=== PATIENT | male | born 1970 | race Caucasian/White ===

== ENCOUNTER 2021-03-06 15:31 | Emergency (ER) | payer OTHER, SELFPAY ==
[2021-03-06 15:32] VITALS: BP 173/89; PULSE 117; RESP 18; TEMP 36; O2SAT 100; BMI 48.4
--- NOTE | 2021-03-06 15:48 | EDS_ITS ---
HPI HPI - URI History of Present Illness Chief Complaint: Cough Detail of Chief Complaint: Cough and congestion Informant: patient Narrative Narrative: Patient presents to the emergency department complaint of cough and congestion that started 2 days ago. Patient has a coworker that lives with in- laws that apparently have Covid. Coworkers still been coming to work. Patient has been vaccinated and his second dose was in July of this year. Patient states the cough is nonproductive. He denies loss of taste or smell. He denies shortness of breath. He denies chest pain. Patient did not receive an influenza vaccine. Prior similar symptoms: No ROS ROS ED Constitutional Constitutional ED: Reports systems reviewed and no addt'l complaints, except as documented; Denies body ache(s), change in weight or chills Eyes Eyes: Denies acute decrease in peripheral vision, change in vision, double vision or loss of vision ENT ENT ED: Reports none and other Details: Nasal congestion ; Denies ear pain, lip swelling, loss taste/smell, neck pain, otalgia or sore throat Cardiovascular Cardiovascular: Reports none; Denies abdominal pain, chest pain with activity, leg edema, lightheadedness, palpitations, rapid heart rate or syncope Respiratory/Chest Respiratory/Chest: Reports none and cough; Denies change in mental status, dry cough, dyspnea, hemoptysis, shortness of breath at rest or shortness of breath with exertion Gastrointestinal Gastrointestinal: Reports none; Denies abdominal pain, change in stool character, diarrhea, hematemesis, hematochezia, melena, rectal bleeding or vomiting Genitourinary Genitourinary ED: Reports none; Denies abdominal discomfort, anuria, dysuria, genital pain or polyuria Musculoskeletal Musculoskeletal: Reports none; Denies arthralgias, back pain, difficulty walking, extremity pain, muscle weakness or myalgias Integumentary Reports none; Denies abscess or rash Neurologic Neurologic: Reports none; Denies abnormal gait, confusion, focal weakness, frequent falls, headache(s), loss of vision, numbness, paresthesias, radicular pain, vertigo or weakness Psychiatric Psychiatric: Reports systems reviewed and no addt'l complaints, except as documented and none; Denies behavioral changes, confusion, difficulty concentrating, hallucinations, suicidal ideation, tactile hallucinations or visual hallucinations Endocrine Endocrinology: Denies none, cold intolerance, excessive sweating, fatigue or heat intolerance Hematologic/Lymphatic Hematologic/Lymphatic: Reports none; Denies anemia, easy bleeding or easy bruising Allergic/Immunologic Allergic/Immunologic ED: Denies as per HPI, none, lip swelling, mouth swelling, throat swelling, tongue swelling or hives PFSH [facility] Medical History (Updated 03/06/21 @ 16:[address] Fatmata Perez, DO) Congestive heart failure Essential hypertension Hypoxia Morbid obesity Nonischemic cardiomyopathy Obstructive sleep apnea Pulmonary hypertension Right arm fracture Sinus tachycardia Home Medications aspirin 81 mg PO DAILY@0800 #90 tab.chew 10/10/13 [Rx Last Taken Unknown] ascorbic acid (vitamin C) 1,000 mg tablet 1 g PO DAILY tab 06/29/19 [History Last Taken Unknown] diltiazem HCl 120 mg capsule,extended release 24 hr 120 mg PO BID #180 cap 08/22/20 [Rx Last Taken Unknown] furosemide 40 mg tablet 40 mg PO BID #180 tab 08/29/20 [Rx Last Taken Unknown] lisinopril 10 mg tablet 10 mg PO BID #180 tab 08/29/20 [Rx Last Taken Unknown] metoprolol tartrate 100 mg tablet 150 mg PO BID #270 tab 08/29/20 [Rx Last Taken Unknown] Allergy/AdvReac Type Severity Reaction Status Date / Time No Known Allergies Allergy Verified 03/06/21 15:31 Family History Father CAD (coronary artery disease) COPD (chronic obstructive pulmonary disease) Mother Cancer Heart disease Surgical History History of left heart catheterization (LHC) (~10/09/13) History of open reduction and internal fixation (ORIF) procedure History of umbilical hernia repair Social History Smoking Status: Former smoker how long ago did patient quit smokin years ago alcohol intake: current alcohol intake frequency: holidays/special occasions only substance use type: does not use caffeine: No EXAM Physical Exam Const Vital Signs: 03/06/21 15:32 03/06/21 15:55 Temperature 96.8 F L Temperature Source Temporal Pulse Rate 117 H Respiratory Rate 18 Respiratory Effort Normal Non-Labored Respiratory Depth Normal Respiratory Pattern Normal Blood Pressure 173/89 H Blood Pressure Mean 117 Pulse Ox 100 Oxygen Delivery Method Room Air Room Air Positive well nourished and well developed General Appearance ED: well developed and NAD HEENT Reports TM's clear and moist mucous membranes normocephalic and atraumatic; Negative for trauma or tenderness Tympanic Membrane ED: Yes TM's clear Eyes PERRL and EOMs intact bilaterally General Eye ED: Negative for pale conjunctiva or scleral icterus Neck no lymphadenopathy, supple and no JVD General: Negative for tenderness Chest Wall inspection of chest normal and palpation of chest normal Chest: Negative for tenderness Resp normal respiratory effort and clear to auscultation bilaterally Effort and Inspection: Negative for respiratory distress or pain with movement Auscultation: Negative for rhonchi, wheezes or diminished lung sounds Cardio regular rate, regular rhythm, S1 normal heart sound, S2 normal heart sound and no murmurs Rate: tachycardic Peripheral Pulses: pulses 2+ throughout GI normal to inspection, nondistended, normoactive bowel sounds, soft to palpation, non-tender, non-distended and no masses Back/Spine no CVA tenderness and no thoracic nor lumbar tenderness Extremity normal to inspection General Extremety ED: Negative for edema General Extremity: Negative for edema Neuro oriented x3, CN's II-XII intact bilaterally, no sensory deficits noted and gait normal Sensorium / Orientation: awake, alert, oriented to person, oriented to place and oriented to time Motor Exam: strength 5/5 throughout and strength abnormal Psych mental status grossly normal Skin no rashes or lesions noted and no wounds MDM MDM MDM Narrative Medical decision making narrative: Patient had a rapid Covid test and rapid influenza and both were negative. At this point I suspect likely a viral URI. Patient advised to follow-up with his primary care physician 5 to 7 days. He is to return if increasing shortness of breath or condition should worsen anyway. Lab Data Attestation: I reviewed the patient's lab results. Discharge Plan Triage Chief Complaint: Cough ED Provider: Fatmata Perez Dx/Rx/DC Orders Clinical Impression: Upper respiratory infection, viral Instructions: ED URI, Viral, No Abx (Adult) Prescriptions: No Action ascorbic acid (vitamin C) 1,000 mg tablet 1 g PO DAILY RF: 0 lisinopril 10 mg tablet 10 mg PO BID Qty: 180 RF: 3 furosemide 40 mg tablet 40 mg PO BID Qty: 180 RF: 3 metoprolol tartrate 100 mg tablet 150 mg PO BID Qty: 270 RF: 3 aspirin 81 MG tablet,chewable 81 mg PO DAILY@0800 Qty: 90 RF: 4 diltiazem HCl [Cardizem CD] 120 mg capsule,extended release 24hr 120 mg PO BID Qty: 180 RF: 3 Primary Care Provider: Awais Bonilla Referrals: Donny Olmos MD [STAFF PHYSICIAN] - 5-7 Days Awais Bonilla MD [Primary Care Provider] - Disposition Disposition: Home, Self Care
[2021-03-06 15:55] VITALS: O2SAT 96
== END 2021-03-06 17:00 | disposition home or self-care (01) ==
PROVIDERS: Emergency Provider Emergency Medicine; PCP Family Medicine
DX: J06.9 Acute upper respiratory infection, unspecified (principal); I11.0 Hypertensive heart disease with heart failure; I50.9 Heart failure, unspecified; E66.01 Morbid (severe) obesity due to excess calories; Z68.42 Body mass index [BMI] 45.0-49.9, adult; Z20.822 Contact with and (suspected) exposure to COVID-19; Z79.82 Long term (current) use of aspirin; Z79.899 Other long term (current) drug therapy; Z87.891 Personal history of nicotine dependence
CPT/HCPCS: 87426; 87804; 99282

== ENCOUNTER 2023-01-20 10:40 | Emergency (ER) | payer OTHER, SELFPAY ==
[2023-01-20 10:41] VITALS: BP 141/82; PULSE 122; RESP 18; TEMP 36.6; O2SAT 99; BMI 44.5
--- NOTE | 2023-01-20 10:48 | EX.ED.DYSGE1 ---
HPI History of Present Illness Chief Complaint: Cough Informant: patient Onset/Context/Timing Onset: Days (3) Context: Gradual Onset Timing: Continuous Quality: Fatigue, dizzy Location: Generalized Worsened by: Nothing Relieved by: Nothing Narrative Narrative: Patient presents with cough and congestion that began 2 days ago. Patient states it has been getting progressively worse. Patient states he feels fatigued. Patient also admits to some dizziness where he feels off balance at times. Patient states nothing makes his symptoms better nothing makes them worse. Patient states he has been having some nausea and vomiting. Patient also admits to a frontal headache. Patient admits to some subjective fevers and chills but does not have a thermometer at home. [facility] Medical History Congestive heart failure Essential hypertension Hypoxia Morbid obesity Neuropathy Nonischemic cardiomyopathy Obstructive sleep apnea Pulmonary hypertension Right arm fracture Sinus tachycardia Varicose vein of leg Home Medications aspirin 81 mg chewable tablet 81 mg PO DAILY@0800 ##90 10/10/13 [Rx Last Taken Unknown] ascorbic acid (vitamin C) 1,000 mg tablet 1 g PO DAILY 06/29/19 [History Last Taken Unknown] diltiazem HCl 120 mg capsule,extended release 24 hr (Cardizem CD) 120 mg PO BID #180 caps 10/15/22 [Rx Last Taken Unknown] furosemide 40 mg tablet 40 mg PO BID #180 tabs 10/15/22 [Rx Last Taken Unknown] lisinopril 10 mg tablet 10 mg PO BID #180 tabs 10/15/22 [Rx Last Taken Unknown] metoprolol tartrate 100 mg tablet 150 mg (1.5 x 100 mg) PO BID #270 tabs 10/15/22 [Rx Last Taken Unknown] Allergy/AdvReac Type Severity Reaction Status Date / Time No Known Allergies Allergy Verified 01/20/23 10:41 Family History Father CAD (coronary artery disease) COPD (chronic obstructive pulmonary disease) Mother Cancer Heart disease Surgical History History of left heart catheterization (LHC) (~10/09/13) History of open reduction and internal fixation (ORIF) procedure History of umbilical hernia repair Social History Smoking Status: Former smoker how long ago did patient quit smokin years ago alcohol intake: current alcohol intake frequency: holidays/special occasions only substance use type: does not use caffeine: No ROS ROS ED Constitutional Constitutional ED: Reports chills, fever(s) and subjective Eyes Eyes: Denies blurry vision or change in vision ENT ENT ED: Denies rhinorrhea or sore throat Cardiovascular Cardiovascular: Denies chest pain or palpitations Respiratory/Chest Respiratory/Chest: Reports cough; Denies dyspnea or sputum Gastrointestinal Gastrointestinal: Reports nausea and vomiting Genitourinary Genitourinary ED: Denies dysuria or hematuria Musculoskeletal Musculoskeletal: Denies back pain or neck pain Integumentary Denies abscess or rash Neurologic Neurologic: Reports headache(s); Denies weakness Allergic/Immunologic Allergic/Immunologic ED: Denies mouth swelling or urticaria EXAM Physical Exam Const Vital Signs: 01/20/23 10:41 Temperature 97.9 F Temperature Source Temporal Pulse Rate 122 H Respiratory Rate 18 Blood Pressure 141/82 H Blood Pressure Mean 101 Pulse Ox 99 Oxygen Delivery Method Room Air Positive well nourished, well developed and obese General Appearance ED: well developed and NAD Nutritional Appearance: obese HEENT Reports TM's clear and moist mucous membranes Tympanic Membrane ED: Yes TM's clear Eyes PERRL and EOMs intact bilaterally Neck supple and no JVD Resp normal respiratory effort and clear to auscultation bilaterally Cardio regular rate and regular rhythm GI non-tender and non-distended Palpation: soft Extremity normal to inspection General Extremety ED: Negative for edema or tenderness General Extremity: Negative for edema Neuro oriented x3, CN's II-XII intact bilaterally and no sensory deficits noted Sensorium / Orientation: alert Motor Exam: strength 5/5 throughout Psych mental status grossly normal MDM MDM MDM Narrative Medical decision making narrative: Differential diagnosis includes viral upper respiratory infection, COVID-19, influenza, RSV, pneumonia, and dehydration. Chest x-ray will be obtained to assess for pneumonia. COVID-19 rapid antigen will be obtained to assess for COVID-19 infection. Influenza A and influenza B antigens will be obtained to assess for influenza infection. RSV antigen will be obtained to assess for RSV infection. CBC will be obtained to assess for leukocytosis and anemia. Basic metabolic profile will be obtained to assess for electrolyte abnormality and renal function. Lab Data Attestation: I reviewed the patient's lab results. Lab results narrative: COVID-19 rapid antigen was reviewed and was negative. Influenza A and influenza B antigens were reviewed and were negative. RSV rapid antigen was reviewed and was negative. CBC was reviewed and shows a mild leukocytosis of 12.1. Basic metabolic profile was reviewed. Glucose was elevated at 417. Sodium was slightly low at 130 and chloride was 95. The remainder was within normal limits. Anion gap was normal. CO2 was normal. Labs: Laboratory Results - last 24 hr 01/20/23 11:17 WBC 12.1 H RBC 5.44 Hgb 16.2 Hct 48.2 MCV 88.6 MCH 29.8 MCHC 33.6 RDW Std Deviation 40.8 RDW Coeff of Mechelle 12.5 Plt Count 253 MPV 8.8 Immature Gran % (Auto) 0.800 Neut % (Auto) 75.1 H Lymph % (Auto) 11.0 L Williamson % (Auto) 12.5 H Eos % (Auto) 0.1 Baso % (Auto) 0.5 Absolute Neuts (auto) 9.1 H Absolute Lymphs (auto) 1.32 Nucleated RBC % 0 Differential Comment SCANNED Diff Path Review May foll Sodium 130 L Potassium 3.6 Chloride 95 L Carbon Dioxide 25.0 Anion Gap 10 BUN 12 Creatinine 1.06 Estim Creat Clear Calc 80.66 Est GFR (MDRD) Af Amer 95 Est GFR (MDRD) Non-Af 79 BUN/Creatinine Ratio 11.3 Glucose 417 H Calcium 9.3 Treatment and Re-Evaluation :: Patient was given IV fluids and Zofran. Patient is feeling better on reevaluation. Patient was advised of his findings. Patient was instructed to take Tylenol or ibuprofen as needed for any fevers or aches. Patient was instructed to drink plenty of fluids. Patient was instructed to follow-up with his primary care physician in 5 to 7 days. Patient understood and was agreeable with the plan. All questions were answered. Discharge Plan Triage Chief Complaint: Cough Other Complaint: Dizziness Headache ED Provider: Mario Hogue Dx/Rx/DC Orders Clinical Impression: Viral upper respiratory infection Instructions: ED URI, Viral, No Abx (Adult) Prescriptions: No Action ascorbic acid (vitamin C) 1,000 mg tablet 1 g PO DAILY aspirin 81 MG tablet,chewable 81 mg PO DAILY@0800 Qty: 90 4RF Patient Comments: [facility] diltiazem HCl [Cardizem CD] 120 mg capsule,extended release 24hr 120 mg PO BID Qty: 180 3RF furosemide 40 mg tablet 40 mg PO BID Qty: 180 3RF Patient Comments: WATER PILL lisinopril 10 mg tablet 10 mg PO BID Qty: 180 3RF metoprolol tartrate 100 mg tablet 150 mg PO BID Qty: 270 3RF Stand Alone Forms: ED Work / School Excuse Primary Care Provider: Awais Bonilla Referrals: Awais Bonilla MD [Primary Care Provider] - 5-7 Days Disposition Disposition: Home, Self Care
[2023-01-20] MEDS: Ondansetron 4 MG/2 ML Vial IV (11:26)
[2023-01-20] MEDS: 0.9% Normal Saline (1000mL) 1,000 ML 1000 ML IV (11:26)
[2023-01-20 11:27] LABS: Absolute Lymphocyte Count 1.32 X10^3/uL (0.83-4.51); Absolute Neutrophil Count 9.1 X10^3/uL (2.0-7.7); Basophil# 0.06 X10^3/uL; Basophil% 0.5 % (0-1); Eosinophil# 0.01 X10^3/uL; Eosinophils% 0.1 % (0-5); Hematocrit 48.2 % (40-54); Hemoglobin 16.2 g/dL (13.0-16.5); Lymphocyte # 1.32 X10^3/ul (0.83-4.51); Mean Corp Hgb Conc 33.6 g/dL (32-36); Mean Corpuscular Hgb 29.8 pg (27.0-32.0); Mean Corpuscular Volume 88.6 fL (80-94); Mean Platelet Vol. 8.8 fl (6.2-12.0); Monocyte# 1.51 X10^3/uL; Monocyte% 12.5 % (0-10); NRBC Flagged by Analyzer 0 % (0-5); Neutrophil # 9.05 X10^3/uL (2.7-7.7); Neutrophil % 75.1 % (47-70); POSITIVE DIFFERENTIAL YES; Platelet Count 253 K/mm3 (150-450); RBC Distribution Width CV 12.5 % (11.6-14.6); RBC Distribution Width SD 40.8 fl (35.1-43.9); Red Blood Count 5.44 M/mm3 (4.6-6.2); White Blood Count 12.1 K/mm3 (4.4-11.0)
[2023-01-20 11:28] LABS: Differential Indicated SCAN CRITERIA MET
[2023-01-20 11:38] LABS: Anion Gap 10 (5-15); BUN 12 mg/dL (7-18); BUN/Creat Ratio 11.3 RATIO (10-20); Calcium,Total 9.3 mg/dL (8.5-10.1); Chloride 95 mmol/L (98-107); Creatinine, Serum 1.06 mg/dL (0.70-1.30); EST Glomerular Filtration Rate 79 mL/min (>60); Est Glom Filt Rate - Afr Amer 95 mL/min (>60); Estimated Creatinine Clearance 80.66 ml/min; Glucose 417 mg/dL (74-106); Potassium 3.6 mmol/L (3.5-5.1); Sodium Level 130 mmol/L (136-145)
[2023-01-20 11:52] LABS: Differential Comment SCANNED
[2023-01-21 09:59] LABS: Pathologist Review Reviewed
== END 2023-01-20 13:40 | disposition home or self-care (01) ==
PROVIDERS: Emergency Provider Emergency Medicine; PCP Family Medicine; Visit Provider Emergency Medicine
DX: J06.9 Acute upper respiratory infection, unspecified (principal); I11.0 Hypertensive heart disease with heart failure; I50.9 Heart failure, unspecified; Z79.82 Long term (current) use of aspirin; Z79.899 Other long term (current) drug therapy; Z87.891 Personal history of nicotine dependence
CPT/HCPCS: 80048; 85025; 87428; 87807; 96361; 96374; 99283; J7030; A4216; J2405

== ENCOUNTER 2023-01-31 06:29 | Inpatient (IN) | payer OTHER, SELFPAY ==
[2023-01-31] VITALS (8 sets, daily range): BP systolic 120–136; BP diastolic 65–83; PULSE 64–106; RESP 14–17; TEMP 36.1–36.9; O2SAT 94–99; BMI 44.0
--- NOTE | 2023-01-31 07:35 | RAD_ITS ---
STUDY: X-RAY - LEFT FOOT CLINICAL: Male, 52 years old. wound TECHNIQUE: 3 view(s) of the foot. COMPARISON: None. FINDINGS: Normal talus and tarsal bones. Calcaneal spurs Normal visualized subtalar, talonavicular, calcaneocuboid, tarsal and tarsometatarsal articulations. Normal metatarsi. Normal metatarsophalangeal joint of the great toe. Normal tibial and fibular sesamoid bones. Normal interphalangeal joint of the great toe. Normal phalanges of the great toe. Normal second through fifth metatarsophalangeal joints. Normal interphalangeal joints and phalanges of the lesser toes. There is diffuse soft tissue swelling and subcutaneous emphysema about the phalanges of the great toe and along the distal first metatarsal there is no clearly demonstrated fracture. There may be a fracture in the distal phalanx of the great toe but this is not well visualized due to the subcutaneous emphysema. There is a corticated calcific fragment which appears to be an old ununited avulsion fracture of the distal medial corner of the proximal phalanx of the great toe. RAD/Foot min 3 Views IMPRESSION: Diffuse soft tissue swelling and subcutaneous emphysema particularly over the distal phalanx of the great toe. No demonstrated acute fracture though a subtle fracture could be obscured by the subcutaneous emphysema and soft tissue swelling. Calcaneal spurs Electronically Signed: Minor Frazier MD at 8:21 EST ,
--- NOTE | 2023-01-31 07:59 | EX.ED.DYSGE1 ---
HPI History of Present Illness Chief Complaint: Wound Narrative Narrative: 52-year-old male presenting with concern for infection of left foot. He states been about a week and a half. Patient denies any injury that he knows of. He notes that the great toe area was draining. There is some erythema that spreads over the dorsum of the foot. He states it hurts posteriorly in his lower leg when he stands but when he walks this goes away. Denies any fevers, chills, systemic signs or symptoms. States he is not diabetic that he knows of. [facility] Medical History Congestive heart failure Essential hypertension Hypoxia Morbid obesity Neuropathy Nonischemic cardiomyopathy Obstructive sleep apnea Pulmonary hypertension Right arm fracture Sinus tachycardia Varicose vein of leg Home Medications aspirin 81 mg chewable tablet 81 mg PO DAILY@0800 ##90 10/10/13 [Rx Last Taken Unknown] diltiazem HCl 120 mg capsule,extended release 24 hr (Cardizem CD) 120 mg PO BID #180 caps 10/15/22 [Rx Last Taken Unknown] furosemide 40 mg tablet 40 mg PO BID #180 tabs 10/15/22 [Rx Last Taken Unknown] lisinopril 10 mg tablet 10 mg PO BID #180 tabs 10/15/22 [Rx Last Taken Unknown] metoprolol tartrate 100 mg tablet 150 mg (1.5 x 100 mg) PO BID #270 tabs 10/15/22 [Rx Last Taken Unknown] Allergy/AdvReac Type Severity Reaction Status Date / Time No Known Allergies Allergy Verified 01/31/23 06:37 Family History Father CAD (coronary artery disease) COPD (chronic obstructive pulmonary disease) Mother Cancer Heart disease Surgical History History of left heart catheterization (LHC) (~10/09/13) History of open reduction and internal fixation (ORIF) procedure History of umbilical hernia repair Social History Smoking Status: Former smoker how long ago did patient quit smokin years ago alcohol intake: current alcohol intake frequency: holidays/special occasions only substance use type: does not use caffeine: No ROS ROS ED Constitutional Constitutional ED: Denies chills, fever(s) or sweats Eyes Eyes: Denies blurry vision or change in vision ENT ENT ED: Denies ear pain or sore throat Cardiovascular Cardiovascular: Denies chest pain, palpitations or racing heartbeat Respiratory/Chest Respiratory/Chest: Denies cough, dyspnea or sputum Gastrointestinal Gastrointestinal: Denies abdominal pain, constipation, diarrhea, nausea or vomiting Genitourinary Genitourinary ED: Denies dysuria, hematuria or urinary frequency Musculoskeletal Musculoskeletal: Denies arthralgias, myalgias or neck pain Integumentary Reports abscess and rash; Denies Abrasions Neurologic Neurologic: Denies headache(s), paresthesias or weakness Psychiatric Psychiatric: Denies anxiety, depression, suicidal ideation or suicidal thoughts Endocrine Endocrinology: Denies polydipsia or polyuria EXAM Physical Exam Const Vital Signs: 01/31/23 06:31 Temperature 98.4 F Temperature Source Temporal Pulse Rate 101 H Respiratory Rate 15 Blood Pressure 121/65 H Blood Pressure Mean 83 Pulse Ox 99 Oxygen Delivery Method Room Air Positive well nourished and obese General Appearance ED: NAD Nutritional Appearance: obese HEENT Reports moist mucous membranes Eyes PERRL and EOMs intact bilaterally Chest Wall inspection of chest normal Resp normal respiratory effort and clear to auscultation bilaterally Cardio regular rhythm GI normal to inspection, nondistended, normoactive bowel sounds Extremity Extremity Narrative: Erythema, edema, warmth, skin sloughing at the left distal great toe and to the midfoot. No crepitance is appreciated however there is drainage from the great toe. Nontender to palpation. There appears to be some areas of necrosis but he is a nail of the great toe and the dorsum of the foot proximal to the toes. There is also some necrotic changes to the volar surface of the great toe. Neuro oriented x3 and CN's II-XII intact bilaterally Sensorium / Orientation: alert Psych mental status grossly normal Skin Skin Narrative: As described above MDM MDM MDM Narrative Medical decision making narrative: 52-year-old male presenting with foot infection. There appears to be areas of necrosis and cellulitis. The patient initially is tachycardic however his other vital signs are normal. Not complaining of pain. He has no systemic signs or symptoms. Initially CBC, BMP were ordered to assess white blood cell count, hemoglobin, platelets, renal function, electrolytes. CRP and ESR were also obtained. ESR 31 and slightly elevated. CRP 119. White blood cell came back at 18.5 with normal hemoglobin of 14.8, platelets 449. Orders were added to complete a sepsis work-up including PT/INR, lactic acid, blood cultures, urinalysis, urine culture. Urinalysis is still pending however lactic acid is 2.7. BMP shows 43-year-old sodium 129 with an elevated glucose at 405 which is likely pseudohyponatremia with new onset diabetes as the patient does not have a history of diabetes. This is likely what it looks infected. Patient covered with vancomycin and Zosyn. X-ray was obtained of the left foot which on my interpretation shows concern for osteomyelitis and subcutaneous air. I discussed the case with Dr. Moore who recommended that since the patient appears to be septic from this he been admitted to medicine he also has a lot of comorbidities. Patient had a wound culture prior to antibiotics starting. Discussed with hospitalist for admission. Impression: 1. Cellulitis left foot 2. Osteomyelitis left foot 3. New onset diabetes 4. Sepsis Lab Data Labs: Laboratory Results - last 24 hr 01/31/23 07:24 WBC 18.5 H RBC 5.12 Hgb 14.8 Hct 47.4 MCV 92.6 MCH 28.9 MCHC 31.2 L RDW Std Deviation 42.0 RDW Coeff of Mechelle 12.2 Plt Count 449 MPV 9.4 ESR 31 H PT 14.6 INR 1.1 Sodium 129 L Potassium 3.8 Chloride 95 L Carbon Dioxide 27.0 Anion Gap 7 BUN 11 Creatinine 0.92 Estim Creat Clear Calc 92.93 Est GFR (MDRD) Af Amer 112 Est GFR (MDRD) Non-Af 93 BUN/Creatinine Ratio 12.0 Glucose 405 H Lactic Acid 2.7 H* Calcium 9.5 C-React Prot Ext Range 119.00 H Radiography Diagnostic Testing: Clinical Impression(s) from Imaging Studies Foot X-Ray 01/31/23 07:35 IMPRESSION: Diffuse soft tissue swelling and subcutaneous emphysema particularly over the distal phalanx of the great toe. No demonstrated acute fracture though a subtle fracture could be obscured by the subcutaneous emphysema and soft tissue swelling. Calcaneal spurs Electronically Signed: Minor Frazier MD at 8:21 EST , Discharge Plan Disposition Disposition: Acute Care Hospital [facility] Discharge Date/Time: 01/31/23 09:56
[2023-01-31 08:22] LABS: Erythrocyte Sedimentation Rate 31 mm/hr (0-20)
[2023-01-31 08:24] LABS: Hematocrit 47.4 % (40-54); Hemoglobin 14.8 g/dL (13.0-16.5); Mean Corp Hgb Conc 31.2 g/dL (32-36); Mean Corpuscular Hgb 28.9 pg (27.0-32.0); Mean Corpuscular Volume 92.6 fL (80-94); Mean Platelet Vol. 9.4 fl (6.2-12.0); Platelet Count 449 K/mm3 (150-450); RBC Distribution Width CV 12.2 % (11.6-14.6); Red Blood Count 5.12 M/mm3 (4.6-6.2); White Blood Count 18.5 K/mm3 (4.4-11.0)
[2023-01-31] MEDS: Piperacil/Tazobactam 3.375 GM in 0.9% Normal Saline (50mL MB+) 50 ML IV ×3 (09:15→22:38)
--- NOTE | 2023-01-31 09:28 | ART_ITS ---
Reason For Study: LTFoot Infection Procedure A bilateral lower extremity continuous wave Doppler with analog waveform analysis and ankle brachial indexes. Left Segmental Pressures Left brachial= 113mmHg. Left posterior tibial artery = 136mmHg. Left dorsalis pedis artery = 131mmHg. The left posterior tibial artery waveforms are triphasic. The left dorsalis pedis waveforms are triphasic. Right Segmental Pressures Right posterior tibial artery = 143mmHg. Right dorsalis pedis artery = 144mmHg. The right posterior tibial artery waveforms are triphasic. The right dorsalis pedis waveforms are triphasic. Indices The right ankle brachial index by the posterior tibial artery is 1.27. The right ankle brachial index by the dorsalis pedis is 1.27. The left ankle brachial index by the posterior tibial artery is 1.20. The left ankle brachial index by the dorsalis pedis is 1.16. VL/Ankle Brachial Index Interpretation Summary Triphasic Doppler waveforms are noted at ankle level bilaterally. Pulse-volume recordings appear satisfactory at ankle level bilaterally. Resting ankle-brachial indices are nor mal bilaterally. There is no evidence of significant arterial occlusive disease in the lower ext remities bilaterally. Ordering Physician: Mario Mathews Referring Physician: N/A Performed By: Frankie Tan RVT
[2023-01-31 09:29] LABS: International Normalized Ratio 1.1; Prothrombin Time (Protime)PT. 14.6 SECONDS (11.7-14.9)
--- NOTE | 2023-01-31 09:29 | PCM.HP.STD ---
HPI - General General Date of Admission: 01/31/23 Date of Service: 01/31/23 Chief Complaint: left foot infection. HPI Narrative CAMILO MULLER, is a 52 M who presents because of a left foot infection. About a week and a half ago, patient noted a blister on his left toe. Was tending to it on his own with treating with water and salt water at times. But the infection got worse. Patient has neuropathy of his feet so he does not have any pain. The infection progressively got worse where he has eschar was on the dorsum of his foot. He presented to the emergency room and had an x-ray that showed subcutaneous emphysema over the distal phalanx of the great toe. Patient received vancomycin and PIP Tazo in the emergency room. Podiatry contacted. Patient mid to the floor. Patient denies any history of any infection of his foot before but does note that he has had a history of neuropathy, according to him, due to heart failure and swelling. Should be noted that the patient's glucose when he was here on the 26 was 417. Suspect patient does have component of diabetic neuropathy. Patient has no prior known history of diabetes. Patient states that his left foot look like his right foot before the infection started. His right foot has some calluses and some some onychomycosis but otherwise unremarkable. He denies any antecedent trauma to his foot or any injuries that may have precipitated this. [facility] Medical History Congestive heart failure Essential hypertension Hypoxia Morbid obesity Neuropathy Nonischemic cardiomyopathy Obstructive sleep apnea Pulmonary hypertension Right arm fracture Sinus tachycardia Varicose vein of leg Home Medications aspirin 81 mg chewable tablet 81 mg PO DAILY@0800 ##90 10/10/13 [Rx Last Taken Unknown] diltiazem HCl 120 mg capsule,extended release 24 hr (Cardizem CD) 120 mg PO BID #180 caps 10/15/22 [Rx Last Taken Unknown] furosemide 40 mg tablet 40 mg PO BID #180 tabs 10/15/22 [Rx Last Taken Unknown] lisinopril 10 mg tablet 10 mg PO BID #180 tabs 10/15/22 [Rx Last Taken Unknown] metoprolol tartrate 100 mg tablet 150 mg (1.5 x 100 mg) PO BID #270 tabs 10/15/22 [Rx Last Taken Unknown] Allergy/AdvReac Type Severity Reaction Status Date / Time No Known Allergies Allergy Verified 01/31/23 06:37 Family History Father CAD (coronary artery disease) COPD (chronic obstructive pulmonary disease) Mother Cancer Heart disease Surgical History History of left heart catheterization (LHC) (~10/09/13) History of open reduction and internal fixation (ORIF) procedure History of umbilical hernia repair Social History Smoking Status: Former smoker how long ago did patient quit smokin years ago alcohol intake: current alcohol intake frequency: holidays/special occasions only substance use type: does not use caffeine: No ROS ROS Narrative States that he has been pretty active. Does walk about half to 1 block and does have to stop due to being short of breath. This been no change with. He denies any chest pain with activity. No fever or chills. No sore throat or rhinitis. All review of systems were negative except as mentioned above in the history of present illness and the other review of systems. Vital Signs Vital Signs Vital Signs: 01/31/23 06:31 Temperature 36.9 C Temperature Source Temporal Pulse Rate 101 H Respiratory Rate 15 Blood Pressure 121/65 H Blood Pressure Mean 83 Pulse Ox 99 Oxygen Delivery Method Room Air Weight Weight: 131.4 kg Body Mass Index (BMI) 44.0 Physical Exam Const alert and no apparent distress Constitutional Narrative: Ready complexion of his face. Appears older than stated age. General Appearance: cooperative HEENT HEENT Narrative: Ready appearance to the face. Eyes Eyes Narrative: No icterus Resp normal respiratory effort, no retractions, no use of accessory muscles and clear to auscultation bilaterally Cardio regular rate, regular rhythm, S1 normal heart sound and S2 normal heart sound GI normal to inspection, nondistended, normoactive bowel sounds, soft to palpation, non-tender and non-distended Extremity Extremity Narrative: Right foot shows callus over right lateral great toe. Some onychomycosis. Left foot is swollen primarily distally. On the medial side especially. Erythema medially. Patient is missing his right great toe. He has bleeding from the plantar side of his right great toe. Has necrotic eschar is on the dorsum of his right foot. His foot is extremely malodorous. Neuro oriented x3 Sensorium / Orientation: awake and alert Psych affect normal Results Lab / Micro Data Attestation: I reviewed the patient's lab results. 01/31/23 07:24 01/31/23 07:24 Labs: Laboratory Results - last 24 hr 01/31/23 07:24: WBC 18.5 H, RBC 5.12, Hgb 14.8, Hct 47.4, MCV 92.6, MCH 28.9, MCHC 31.2 L, RDW Std Deviation 42.0, RDW Coeff of Mechelle 12.2, Plt Count 449, MPV 9.4, ESR 31 H Radiology Impression Foot X-Ray 01/31/23 07:35 IMPRESSION: Diffuse soft tissue swelling and subcutaneous emphysema particularly over the distal phalanx of the great toe. No demonstrated acute fracture though a subtle fracture could be obscured by the subcutaneous emphysema and soft tissue swelling. Calcaneal spurs Electronically Signed: Minor Frazier MD at 8:21 EST , Assessment & Plan Assessment/Plan (1) Cellulitis of left foot: PLAN: Severe infection Does have subcutaneous air Concerning for osteomyelitis Antibiotics with vancomycin and PIP Tazo Check MRI, check ankle-brachial indices Dr. Moore, podiatry, has been contacted by the ED as well as myself. I did inform the patient that he will require surgery at least to clean up the tissue but may require further surgery such as partial amputation. This is complicated by underlying neuropathy. Patient stated was previously due to heart failure but I suspect the patient actually may have diabetic neuropathy. PLAN: Plan Chronic conditions HEATHER: Patient states that he is compliant with CPAP. Patient bring his CPAP in use. HFpEF: EF of 50% from 2D echocardiogram on September 02, 2013. Currently compensated. Hold off on the furosemide for now. Suspected diabetes mellitus type 2: Patient's glucose was in the 400s when he was here last week. Patient be on a diabetic diet as well as sliding scale insulin. Check an A1c. Obesity: BMI of 44 kg/m?. VTE prophylaxis with enoxaparin Charges/Coding Visit Charges Inpatient E&M: 89455 Init Hosp L3
[2023-01-31 09:36] LABS: Lactic Acid 2.7 mmol/L (0.4-1.9)
[2023-01-31] MEDS: Vancomycin HCl 2,000 MG in 0.9% Normal Saline (500mL Bag) 500 ML 250 MG IV (09:53)
--- NOTE | 2023-01-31 10:03 | MRI_ITS ---
HISTORY: left foot infection Date: 01/31/2023 3:22 PM Technique: MRI examination obtained with multiplanar multi echo imaging. Location: Body part Contrast: No contrast administered Comparison: Plain film examination of 01/31/2023 FINDINGS: BONY ELEMENTS: 1. Bony elements have normal alignment. There however is significant marrow signal abnormality involving the distal phalanx the great toe. Significant surrounding soft tissue induration/edema and ulceration are noted. 2. There is subtle edema involving the head of the proximal phalanx of the great toe. 3. Remaining bony elements have normal marrow signal. No other evidence of marrow edema or destructive marrow replacement processes. JOINT SPACES: 1. Normal appearance of alignment of bony elements and joint spaces. No joint effusion DEEP MUSCULAR COMPARTMENTS: 1. The deep muscular compartments of the foot are well maintained, there is mild edema however involving musculature of the great toe. There is an ovoid collection within the musculature ventral to the 1st metatarsal measuring 1.8 x 1.2 cm most clearly demonstrated on sagittal STIR imaging (series 4: Image 22.). Early phlegmonous collection involving the flexor hallucis brevis is a consideration. Remaining soft tissue planes of the muscular compartments have normal appearance. NEURAL VASCULAR COMPARTMENTS: 1. Normal appearance of the neural vascular compartments SUBCUTANEOUS SOFT TISSUES. 1. Extensive subcutaneous edema involving the foot however most extensively involving the great toe and areas of ulceration suspected along the dorsal and ventral surfaces of the great toe. There is susceptibility artifact suspicious of metal artifact. Some of the susceptibility within the soft tissues may be associated with soft tissue emphysema. MRI/Lower Ext/No Jt/w/o IMPRESSION: 1. Extensive edema involving the great toe areas of ulceration consistent with extensive cellulitis and subtle areas suspicious of soft tissue emphysema. Evidence of diffuse marrow edema involving the distal phalanx the great toe and the distal extremity including the head and portion of the neck of the proximal phalanx of the great toe. Findings are suspicious of osteomyelitis. 2. Remaining bony elements have normal appearance. 3. Moderate edema/myositis involving the musculature along the plantar surface of the forefoot at the level of the great toe. There are findings suspicious of developing phlegmon within the musculature along the plantar surface of the 1st metatarsal. Moderate myositis is noted. Electronically Signed: Sanjeev Vincent MD at 17:51 EST ,
--- NOTE | 2023-01-31 10:03 | EKG12_ITS ---
Test Reason : Blood Pressure : / mmHG Vent. Rate : 105 BPM Atrial Rate : 105 BPM P-R Int : 166 ms QRS Dur : 138 ms QT Int : 390 ms P-R-T Axes : 030 048 -20 degrees QTc Int : 515 ms Sinus tachycardia Right bundle branch block T wave abnormality, consider inferior ischemia Abnormal ECG When compared with ECG of 05-SEP-2013 05:07, Left posterior fascicular block is no longer Present Right bundle branch block is now Present Confirmed by CHAR OCONNELL, IDANIA ([id number]), graphics editor JUSTINO TORRES ([id number]) on 02/07/2023 11:04:02 AM Referred By: SONDRA Confirmed By:SHARI PARDO MD
[2023-01-31 10:27] LABS: Anion Gap 7 (5-15); BUN 11 mg/dL (7-18); Calcium,Total 9.5 mg/dL (8.5-10.1); Chloride 95 mmol/L (98-107); Creatinine, Serum 0.92 mg/dL (0.70-1.30); EST Glomerular Filtration Rate 93 mL/min (>60); Est Glom Filt Rate - Afr Amer 112 mL/min (>60); Estimated Creatinine Clearance 92.93 ml/min; Glucose 405 mg/dL (74-106); Potassium 3.8 mmol/L (3.5-5.1); Sodium Level 129 mmol/L (136-145)
[2023-01-31] MEDS: 0.9% Normal Saline (250mL Bag) 250 ML 15 ML IV (10:45)
--- NOTE | 2023-01-31 11:00 | NURSING ---
L foot wound dry dressing applied.
[2023-01-31 11:46] LABS: Bedside Glucose 302 mg/dL (74-106)
[2023-01-31] MEDS: Lisinopril 10 MG Tablet PO ×2 (11:49→21:43)
[2023-01-31] MEDS: Insulin Lispro 100 UNIT/ML INSULN.PEN SC ×2 (11:50→16:18)
[2023-01-31] MEDS: dilTIAZem CD 120 MG Capsule PO ×2 (11:50→21:43)
[2023-01-31] MEDS: Enoxaparin 40 MG/0.4 ML Syringe SC ×2 (11:50→21:45)
[2023-01-31] MEDS: Metoprolol Tartrate 100 MG Tablet 150 MG PO ×2 (11:50→21:44)
[2023-01-31 13:11] LABS: Reflex Lactate? Y
[2023-01-31 13:16] LABS: Mucous, Urine 0 SEEN /hpf (<or=2+)
[2023-01-31 13:39] LABS: Color, Urine Yellow (Yellow); Glucose, Dipstick 1000 mg/dl (Normal); Ketone-Dipstick 50 mg/dl (Negative); Leukocyte Esterase-Dipstick 500 /ul (Negative); Nitrite-Dipstick Positive (Negative); Occult Blood-Urine 25 /ul (Negative); Protein-Dipstick 30 mg/dl (Negative); Urine Bilirubin Dipstick Negative (Negative); Urine Clarity Clear (Clear); Urine Urobilinogen Normal (Normal)
[2023-01-31 13:53] LABS: Bacteria 1+ /hpf (None Seen); Red Blood Cells-Urine 0-5 SEEN /hpf (0-5); Squamous Epithelial Cells - UA 0-5 SEEN /hpf (0-5); White Blood Cells 25-50 SEEN /hpf (0-5)
--- NOTE | 2023-01-31 14:14 | PCM.RX.CS ---
Consult Antibiotic Management Pharmacy has been consulted to manage selected antiobiotic: Vancomycin Type of Intervention Type of Consult: New start Suspected Infection Suspected Infection: Osteomyelitis Labs Labs: Sodium 129 mmol/L (136-145) L 01/31/23 07:24 Potassium 3.8 mmol/L (3.5-5.1) 01/31/23 07:24 Chloride 95 mmol/L (98-107) L 01/31/23 07:24 Carbon Dioxide 27.0 mmol/L (21.0-32.0) 01/31/23 07:24 Anion Gap 7 (5-15) 01/31/23 07:24 BUN 11 mg/dL (7-18) 01/31/23 07:24 Creatinine 0.92 mg/dL (0.70-1.30) 01/31/23 07:24 Est GFR (MDRD) Af Amer 112 mL/min (>60) 01/31/23 07:24 Est GFR (MDRD) Non-Af 93 mL/min (>60) 01/31/23 07:24 BUN/Creatinine Ratio 12.0 RATIO (10-20) 01/31/23 07:24 Glucose 405 mg/dL (74-106) H 01/31/23 07:24 Goal Trough Goal Trough: 15-20 mcg/mL Pharmacy Plan for Drug Dosing Pharmacy Plan for Drug Dosing: NEW START IV VANCOMYCIN Consulting Physician: DR. Mathews Indication: Osteomyelitis/ cellulitis Goal Trough: 15-20 SrCr: 0.92 CrCl: 92 mL/min Comments: Pt had initial dose of vancomycin 2000mg IV x1 in ED 01/31/23 @0953 Vancomycin Dose: Vancomycin 1250mg IV Q8h to start 01/31/23 @1800 Pending Level: 02/01/23 @0930, prior to 4th total dose of vancomycin per protocol Pharmacy Service will continue to monitor and adjust dosing as required.
--- NOTE | 2023-01-31 14:19 | WOUNDNOTE ---
wound photo: left foot
--- NOTE | 2023-01-31 14:20 | WOUNDNOTE ---
wound photo: left foot
[2023-01-31 14:30] LABS: Lactic Acid 2.3 mmol/L (0.4-1.9)
[2023-01-31] MEDS: Juven (unflavored) Packet 1 PACKET PO (16:18)
[2023-01-31 16:39] LABS: Bedside Glucose 379 mg/dL (74-106)
--- NOTE | 2023-01-31 17:51 | PCM.CONS.GEN ---
Assessment & Plan Assessment/Plan (1) Cellulitis of left foot: (2) Osteomyelitis of great toe of left foot: (3) Claudication: (4) Neuropathy: (5) Varicose vein of leg: (6) Essential hypertension: (7) Congestive heart failure: QUALIFIERS: Heart failure chronicity: chronic Heart failure type: systolic Qualified Code(s): I50.22 - Chronic systolic (congestive) heart failure (8) Pulmonary hypertension: (9) Morbid obesity: (10) Obstructive sleep apnea: PLAN: Plan Patient seen and evaluated Infection: There is significant soft tissue edema of the left hallux and forefoot, especially medially, with erythema encompassing all digits extending proximally to the midfoot. There is multiple open wounds to the left hallux dorsal and plantar, base of the second digit dorsally, and distal forefoot dorsally with eschar of all wounds. There is significant malodor of the wound sites with purulent drainage from the hallux and dorsal foot WBC 18.5, ESR 31, CRP 119, lactic acid 2.3 (down from 2.7) Urinary analysis demonstrates protein 30, glucose 1000, 50 ketones, 25 occult blood, nitrite positive, 500 leukocyte esterase. Blood culture obtained, awaiting results Wound culture obtained, awaiting results MRSA PCR, awaiting results Currently on IV Vanco/Zosyn LEAS performed 01/31/2023 demonstrating right ankle YUE PT 143, indices 1.27; DP 144, indices 1.22; triphasic PT and DP pulses right leg; left leg demonstrates ankle PT 136, indices 1.20; DP 131, indices 1.16; triphasic PT and DP pulses left leg. Imaging: Radiograph left foot demonstrates diffuse soft tissue swelling and subcutaneous soft tissue emphysema particularly over the distal phalanx of the great toe. MRI performed 04/02/2022 demonstrates decreased T1 signal of the distal phalanx and proximal phalanx of the hallux with corresponding increased T2 signal of the distal phalanx and proximal phalanx of the hallux consistent with osteomyelitis. There is evidence of soft tissue emphysema about the hallux and significant soft tissue swelling of the hallux and forefoot of the left foot. There is a fluid collection within musclulature overlying the plantar first metatarsal. Dressings: Wound sites painted with Betadine and Adaptic and dressed with 4 x 4 gauze, ABD, Kerlix, and 4 inch Tres wrap rolled onto the foot. I discussed with patient in detail that I do suspect type 2 diabetes with recent blood sugars over 400 on 2 occasions. Currently awaiting hemoglobin A1c. Discussed proper diabetic diet and foods to avoid. Discussed with him need to see fatback trimmer to aid in his diet modification. Encouraged active lifestyle modification to not only improve blood sugar/A1c but to aid in weight loss as patient is morbidly obese. Discussed checking feet daily given history of wounds and likely underlying diabetes. Discussed with patient the need to follow-up sooner for foot care. I discussed with him the results of the MRI as current. Discussed with him the likelihood of amputation of the left hallux with incision and drainage and wide debridement of the foot to clean up necrotic tissue at minimum versus transmetatarsal amputation of the left foot with tendo Achilles lengthening. I discussed that this is a nonelective procedure and is a limb salvage procedure. Discussed the necessity to move forward with surgery to save as much of the foot as possible. He voices understanding of this. I discussed the procedure in great detail with the patient. Discussed all risks and complications. Discussed risks include but are not limited to the following: Pain, continued pain, phantom pain, complex regional pain syndrome, addiction to pain medication, infection, neuritis/numbness, swelling, scarring, poor cosmetic result, delayed healing/nonhealing, dehiscence, difficulty wearing shoes, inability to wear shoes, overcorrection/under correction, allergic reaction, blood clot, stroke, heart attack, loss of function, loss of limb, and loss of life. Patient voices understanding of these. Patient able to repeat these back. Patient wishes to move forward with surgery. Consent was signed by the patient freely. No promises were made. No guarantees were made. Patient to be consented for left hallux amputation with incision and drainage with wide debridement of necrotic tissue of the left foot versus transmetatarsal amputation with tendo Achilles lengthening left foot. Patient will remain n.p.o. overnight in anticipation of surgical intervention tomorrow. Patient to remain nonweightbearing to the left foot. He is to continue elevating left foot at all times of rest. Medicine team currently following for medical management, they are greatly appreciated Infectious disease consulted for antibiotic management, management is appreciated. Wound nurse following for assistance of dressing changes, assistance is appreciated. Podiatry will continue to follow while in house. Jay Moore Jr. D.P.M. [facility] [phone] HPI Consult Data Date of Consult: 01/31/23 HPI Narrative Reason for Consultation: Left foot infection HPI Narrative: CAMILO MULLER, is a 52 M who presents to [facility] on 01/31/2023 with complaint of redness of the left foot and draining from the left big toe. Patient has PMHx of CHF, HTN, morbid obesity, HEATHER, pulmonary HTN, and neuropathy. Patient denies being diabetic however has had 2 recent visits to the ED with glucose greater than 400. He states he noticed some swelling of the big toe 2 weeks ago with off and on blister formation. He states that last week 1 blister did open and drain a creamy white substance. He states that he was soaking the foot in Epsom salt, rubbing alcohol, and hydrogen peroxide. States that redness continued to progress with developing odor prompting him to go to the hospital. In ED swab cultures were obtained in addition to radiograph of the left foot demonstrating subcutaneous emphysema over the distal phalanx of the hallux with diffuse soft tissue swelling of the foot. WBC 18.5, ESR 31, CRP 119, lactic acid 2.7, PT 14.6, INR 1.1. He was admitted for left foot infection with suspected osteomyelitis of the hallux. He did receive IV Vanco/Zosyn. He was consulted to podiatry for likely amputation. [facility] Medical History Congestive heart failure Essential hypertension Hypoxia Morbid obesity Neuropathy Nonischemic cardiomyopathy Obstructive sleep apnea Pulmonary hypertension Right arm fracture Sinus tachycardia Varicose vein of leg Home Medications aspirin 81 mg chewable tablet 81 mg PO DAILY@0800 ##90 10/10/13 [Rx Last Taken Unknown] diltiazem HCl 120 mg capsule,extended release 24 hr (Cardizem CD) 120 mg PO BID #180 caps 10/15/22 [Rx Last Taken Unknown] furosemide 40 mg tablet 40 mg PO BID #180 tabs 10/15/22 [Rx Last Taken Unknown] lisinopril 10 mg tablet 10 mg PO BID #180 tabs 10/15/22 [Rx Last Taken Unknown] metoprolol tartrate 100 mg tablet 150 mg (1.5 x 100 mg) PO BID #270 tabs 10/15/22 [Rx Last Taken Unknown] Allergy/AdvReac Type Severity Reaction Status Date / Time No Known Allergies Allergy Verified 01/31/23 06:37 Family History Father CAD (coronary artery disease) COPD (chronic obstructive pulmonary disease) Mother Cancer Heart disease Surgical History History of left heart catheterization (LHC) (~10/09/13) History of open reduction and internal fixation (ORIF) procedure History of umbilical hernia repair Social History Smoking Status: Former smoker how long ago did patient quit smokin years ago alcohol intake: current alcohol intake frequency: holidays/special occasions only substance use type: does not use caffeine: No ROS Constitutional Constitutional: Denies anorexia, chills, fatigue or fever(s) Eyes Eyes: Denies diplopia, dry eyes or eye pain ENT HEENT: Denies dizziness, dysphagia, nasal congestion, nasal discharge or sore throat Cardiovascular Cardiovascular: Denies chest pain or claudication Respiratory/Chest Respiratory/Chest: Reports other Details: Has been short of breath with walking half a block to 1 block. States that he is relatively active. This is continued without change. Denies chest pain during activity. ; Denies cough, dyspnea or shortness of breath at rest Gastrointestinal Gastrointestinal: Denies abdominal pain, constipation, diarrhea, nausea or vomiting Genitourinary Genitourinary: Denies dysuria, urinary frequency, urinary hesitancy, urinary incontinence or urinary urgency Musculoskeletal Musculoskeletal: Denies joint pain, joint stiffness or joint swelling Integumentary Integumentary: Denies lesions, pruritus or rash Neurologic Neurologic: Denies dizziness, numbness or seizures Psychiatric Psychiatric: Denies anxiety or depression Endocrine Endocrinology: Denies cold intolerance, heat intolerance, polydipsia or polyphagia Hematologic/Lymphatic Hematologic/Lymphatic: Denies easy bleeding or easy bruising Allergic/Immunologic Allergic/Immunologic: Denies wheezing Physical Exam Const alert, oriented x3, no apparent distress and well nourished General Appearance: cooperative Nutritional Appearance: morbidly obese HEENT normocephalic Eyes General Eye: normal appearance of both eyes Neck General: normal visual inspection Lymph Lymphatic: no lymphadenopathy noted and no lymphedema noted Resp normal respiratory effort Cardio regular rate and regular rhythm Extremity no calf tenderness Extremity Narrative: DP and PT pulses palpable bilateral. Capillary fill time to the digits less than 5 seconds bilateral. Dermatological: There is significant soft tissue edema of the left hallux and forefoot, especially medially, with erythema encompassing all digits extending proximally to the midfoot. There is multiple open wounds to the left hallux dorsal and plantar, base of the second digit dorsally, and distal forefoot dorsally with eschar of all wounds. There is significant malodor of the wound sites with purulent drainage from the hallux and dorsal foot. Musculoskeletal: Previous right hallux amputation is noted. Muscle strength 5 of 5 age-appropriate. There is decreased range of motion of the ankle joint in dorsiflexion with the knee extended without pain or crepitus. There is component of equinus noted bilateral. Skin no rashes or lesions noted, skin turgor normal and no jaundice Neuro oriented x3 and moves all extremities Lab / Micro Data 01/31/23 07:24 01/31/23 07:24 Labs: Laboratory Results - last 24 hr 01/31/23 07:24: WBC 18.5 H, RBC 5.12, Hgb 14.8, Hct 47.4, MCV 92.6, MCH 28.9, MCHC 31.2 L, RDW Std Deviation 42.0, RDW Coeff of Mechelle 12.2, Plt Count 449, MPV 9.4, ESR 31 H, PT 14.6, INR 1.1, Sodium 129 L, Potassium 3.8, Chloride 95 L, Carbon Dioxide 27.0, Anion Gap 7, BUN 11, Creatinine 0.92, Estim Creat Clear Calc 92.93, Est GFR (MDRD) Af Amer 112, Est GFR (MDRD) Non-Af 93, BUN/Creatinine Ratio 12.0, Glucose 405 H, Lactic Acid 2.7 H*, Calcium 9.5, C-React Prot Ext Range 119.00 H 01/31/23 11:19: POC Glucose 302 H 01/31/23 13:08: Urine Color Yellow, Urine Clarity Clear, Urine pH 5.0, Ur Specific [place] 1.020, Urine Protein 30 H, Urine Glucose (UA) 1000 H, Urine Ketones 50 H, Urine Occult Blood 25 H, Urine Nitrite Positive H, Urine Bilirubin Negative, Urine Urobilinogen Normal, Ur Leukocyte Esterase 500 H, Urine RBC 0-5 SEEN, Urine WBC 25-50 SEEN, Ur Squamous Epith Cells 0-5 SEEN, Urine Bacteria 1+, Urine Mucus 0 SEEN 01/31/23 13:45: Lactic Acid 2.3 H* 01/31/23 16:15: POC Glucose 379 H Radiology Impression Foot X-Ray 01/31/23 07:35 IMPRESSION: Diffuse soft tissue swelling and subcutaneous emphysema particularly over the distal phalanx of the great toe. No demonstrated acute fracture though a subtle fracture could be obscured by the subcutaneous emphysema and soft tissue swelling. Calcaneal spurs Electronically Signed: Minor Frazier MD at 8:21 EST ,
[2023-01-31] MEDS: Vancomycin HCl 1,250 MG in 0.9% Normal Saline (250mL Bag) 250 ML 167 MG IV (18:35)
[2023-01-31 19:13] LABS: M R Staph aureus DNA By PCR Negative (Negative); Probe Check PASS; Specimen Processing Control PASS; Staph aureus DNA By PCR POSITIVE (Negative)
--- NOTE | 2023-01-31 23:24 | CPS ---
Patient placed on sleep lab machine for the night on autopap since unaware of current home settings. Max pressure of 20 and minimum pressure of 7.
[2023-02-01] VITALS (12 sets, daily range): BP systolic 111–152; BP diastolic 67–95; PULSE 89–101; RESP 12–18; TEMP 36.5–36.8; O2SAT 89–99; BMI 44.0
[2023-02-01 00:24] LABS: Bedside Glucose 304 mg/dL (74-106)
[2023-02-01] MEDS: Vancomycin HCl 1,250 MG in 0.9% Normal Saline (250mL Bag) 250 ML 167 MG IV (01:32)
[2023-02-01] MEDS: 0.9% Saline Lock 10 ML Syringe IV ×2 (01:32→11:04)
[2023-02-01 03:35] LABS: International Normalized Ratio 1.1; Prothrombin Time (Protime)PT. 14.4 SECONDS (11.7-14.9)
[2023-02-01 03:56] LABS: ALB/GLOB Ratio 0.4 RATIO (0.9-2.4); AST(SGOT) 12 U/L (15-37); Alanine Aminotransfer ALT/SGPT 15 U/L (16-61); Albumin, Serum 2.2 g/dL (3.2-5.0); Alkaline Phosphatase 105 U/L (45-117); Anion Gap 9 (5-15); BUN 15 mg/dL (7-18); BUN/Creat Ratio 26.8 RATIO (10-20); Calcium,Total 8.3 mg/dL (8.5-10.1); Chloride 100 mmol/L (98-107); Creatinine, Serum 0.56 mg/dL (0.70-1.30); EST Glomerular Filtration Rate 164 mL/min (>60); Est Glom Filt Rate - Afr Amer 198 mL/min (>60); Estimated Creatinine Clearance 152.68 ml/min; Globulin 5.7 g/dL (2.2-4.2); Glucose 362 mg/dL (74-106); Potassium 3.9 mmol/L (3.5-5.1); Protein, Total 7.9 g/dL (6.4-8.2); Sodium Level 132 mmol/L (136-145); Thyroid Stim Hormone (TSH) 0.61 uIU/mL (0.358-3.74)
[2023-02-01 04:01] LABS: Absolute Lymphocyte Count 2.29 X10^3/uL (0.83-4.51); Absolute Neutrophil Count 13.2 X10^3/uL (2.0-7.7); Basophil% 0.6 % (0-1); Eosinophil# 0.25 X10^3/uL; Eosinophils% 1.4 % (0-5); Hematocrit 42.9 % (40-54); Hemoglobin 13.6 g/dL (13.0-16.5); Lymphocyte # 2.29 X10^3/ul (0.83-4.51); Lymphocyte % 13.2 % (19-41); Mean Corp Hgb Conc 31.7 g/dL (32-36); Mean Corpuscular Hgb 29.4 pg (27.0-32.0); Mean Corpuscular Volume 92.9 fL (80-94); Mean Platelet Vol. 9.6 fl (6.2-12.0); Monocyte# 1.37 X10^3/uL; Monocyte% 7.9 % (0-10); NRBC Flagged by Analyzer 0 % (0-5); Neutrophil # 13.18 X10^3/uL (2.7-7.7); Neutrophil % 75.7 % (47-70); Platelet Count 446 K/mm3 (150-450); RBC Distribution Width CV 12.4 % (11.6-14.6); RBC Distribution Width SD 42.7 fl (35.1-43.9); Red Blood Count 4.62 M/mm3 (4.6-6.2); White Blood Count 17.4 K/mm3 (4.4-11.0)
[2023-02-01] MEDS: Piperacil/Tazobactam 3.375 GM in 0.9% Normal Saline (50mL MB+) 50 ML IV ×2 (05:23→17:24)
[2023-02-01] MEDS: Insulin Lispro 100 UNIT/ML INSULN.PEN SC ×3 (06:36→22:04)
[2023-02-01 07:20] LABS: Bedside Glucose 339 mg/dL (74-106)
--- NOTE | 2023-02-01 08:00 | FOOT_PTH ---
PATIENT: CAMILO MULLER LOC: [facility] U#:[id number] AGE/SX: 52/M ROOM: [facility] RE01/31/[address]: Dr. José Miguel Beltran MD : 1970 BED: 1 DIS: 02/04/2023 SPEC #: [id number] RECD: 02/02/23 18:31 STATUS: SEAN REQ #: [id number] JIHAN: 02/01/23 08:[address]: Jay Moore DEPT: SURGICAL PATHOLOGY RECD BY: Idania Gael ENTERED: 02/02/23 11:10 SP TYPE: FOOT OTHR DR: Dr. Mario Mathews, DO Dr. Jay Moore, DPM Dr. Noe Kwok MD No Primary Care Phys Tissues: A - Toe, NOS B - Foot, NOS C - Foot, NOS Procedures: Decalcification bone/plaque Surgery Specimen Level IV Comments: @ Ordering doctor for DEC edited from to DR.MMARS Lexy PADILLA at 02/07/23 135Orin @ Ordering doctor for SUIV edited from to DR.MMARS Lexy PADILLA at 02[facility]07[facility]ing doctor for SUV edited from to DR.MMARS Lexy PADILLA at 02/07/23 Bhupinder @ Submitting doctor edited from to DR.MMARS Lexy PADILLA at 02/07/23 1355 HEADER OPERATION: Left trans metatarsal amputation of left foot with tendon PRE-OP DIAGNOSIS: Cellulitis of left foot POST-OP DIAGNOSIS: Osteomyelitis and cellulitis of left foot TISSUE SUBMITTED: A. Left great toe bone, B. Left forefoot bone, C. Left foot tissue MICROSCOPIC DIAGNOSIS A. Left great toe bone, biopsy: Acute osteomyelitis. B. Left forefoot, amputation: Skin with ulceration and associated acute and chronic inflammation and fat necrosis. Bones with focal reparative and reactive change. C. Left foot tissue, biopsy: Acute and chronic inflammation, fat necrosis, fibrinopurulent material and bacterial colonies. AM:scarlett 02/07/2023 MICROSCOPIC DESCRIPTION Slides are reviewed. GROSS DESCRIPTION A. Received in fixative is one container labeled with the patient's name and designated left great toe. The specimen consists of bone measuring 1.5 x 1.5 x 1.0 cm. Entire specimen is submitted in two cassettes after decalcification. B. Received in fixative is one container labeled with the patient's name and designated left forefoot bone. The specimen consists of foot with five toes measuring 11.0 x 5 x 3 cm. Great toe extensive area of ulceration. No bone is identified in the great toe, most likely represents the specimen A. Also present in the specimen a detached piece of skin and underlying tissue measuring 12.0 x 3.5 x 1.5 cm. focal area of ulceration is noted on the skin surface. Also present in the container are multiple fragments of soft tissue measuring in aggregate 10 x 9 x 3.0 cm. Also present in the container are bones, consisting of three metatarsals measuring 7 x 5 x 3.0 cm. Also present in the container are bones consisting of two metatarsals measuring 3 x 3.5 x 2.0 cm. Hourly Sales Staff sections are submitted in six cassettes as follows: 1 - ulcerated area toe, 2 - ulcerated area in the detached piece of skin, 3-6 - bone after decalcification. C. Received in fixative is one container labeled with the patient's name and designated left foot tissue. The specimen consists of multiple fragments of soft tissue measuring in aggregate 2.5 x 2.0 x 0.3 cm. Entire specimen is submitted in one cassette. / SJ:cc 02/02/23 TC:2 CPT: 96022 x3, 64880 x2
[2023-02-01 08:08] LABS: Hemoglobin A1c 11.4 % (3.8-5.6)
[2023-02-01] MEDS: dilTIAZem CD 120 MG Capsule PO ×2 (08:32→22:07)
[2023-02-01] MEDS: Metoprolol Tartrate 100 MG Tablet 150 MG PO ×2 (08:33→22:08)
[2023-02-01] MEDS: Lisinopril 10 MG Tablet PO ×2 (08:33→22:08)
--- NOTE | 2023-02-01 08:36 | PCM.PN.HOSP ---
Subjective Subjective No new complaints. Objective Data Objective Data Vital Signs: Vital Signs Temp Pulse Resp BP Pulse Ox O2 Del Method 36.5 C L 101 H 18 135/74 H 99 Room Air 02/01/23 04:00 02/01/23 08:33 02/01/23 04:00 02/01/23 04:00 02/01/23 04:00 02/01/23 04:00 Oxygen Delivery Method Room Air Weight: 131.4 kg Body Mass Index (BMI) 44.0 Intake & Output: Intake and Output for Last 24 Hours 01/30/23 01/31/23 02/01/23 23:59 23:59 23:59 Intake Total 1115 / 1115 547.5 / 547.5 Balance 1115 / 1115 547.5 / 547.5 Lab / Micro Data 02/01/23 02:11 02/01/23 02:11 Labs: Laboratory Results - last 24 hr 01/31/23 07:24: PT 14.6, INR 1.1, Sodium 129 L, Potassium 3.8, Chloride 95 L, Carbon Dioxide 27.0, Anion Gap 7, BUN 11, Creatinine 0.92, Estim Creat Clear Calc 92.93, Est GFR (MDRD) Af Amer 112, Est GFR (MDRD) Non-Af 93, BUN/Creatinine Ratio 12.0, Glucose 405 H, Lactic Acid 2.7 H*, Calcium 9.5, C-React Prot Ext Range 119.00 H 01/31/23 11:19: POC Glucose 302 H 01/31/23 13:08: Urine Color Yellow, Urine Clarity Clear, Urine pH 5.0, Ur Specific Marston 1.020, Urine Protein 30 H, Urine Glucose (UA) 1000 H, Urine Ketones 50 H, Urine Occult Blood 25 H, Urine Nitrite Positive H, Urine Bilirubin Negative, Urine Urobilinogen Normal, Ur Leukocyte Esterase 500 H, Urine RBC 0-5 SEEN, Urine WBC 25-50 SEEN, Ur Squamous Epith Cells 0-5 SEEN, Urine Bacteria 1+, Urine Mucus 0 SEEN 01/31/23 13:45: Lactic Acid 2.3 H* 01/31/23 16:15: POC Glucose 379 H 01/31/23 17:10: S.aureus Protein A PCR POSITIVE H, MRSA (PCR) Negative 01/31/23 21:40: POC Glucose 304 H 02/01/23 02:11: WBC 17.4 H, RBC 4.62, Hgb 13.6, Hct 42.9, MCV 92.9, MCH 29.4, MCHC 31.7 L, RDW Std Deviation 42.7, RDW Coeff of Mechelle 12.4, Plt Count 446, MPV 9.6, Immature Gran % (Auto) 1.200 H, Neut % (Auto) 75.7 H, Lymph % (Auto) 13.2 L, Wayne % (Auto) 7.9, Eos % (Auto) 1.4, Baso % (Auto) 0.6, Absolute Neuts (auto) 13.2 H, Absolute Lymphs (auto) 2.29, Nucleated RBC % 0, PT 14.4, INR 1.1, Sodium 132 L, Potassium 3.9, Chloride 100, Carbon Dioxide 23.0, Anion Gap 9, BUN 15, Creatinine 0.56 L, Estim Creat Clear Calc 152.68, Est GFR (MDRD) Af Amer 198, Est GFR (MDRD) Non-Af 164, BUN/Creatinine Ratio 26.8 H, Glucose 362 H, Hemoglobin A1c 11.4 H, Calcium 8.3 L, Total Bilirubin 0.60, AST 12 L, ALT 15 L, Alkaline Phosphatase 105, Total Protein 7.9, Albumin 2.2 L, Globulin 5.7 H, Albumin/Globulin Ratio 0.4 L, TSH 0.61 02/01/23 06:36: POC Glucose 339 H Micro: Microbiology 01/31/23 09:10 Wound Drainage - Toe Wound Culture - Preliminary Gram negative hannah Gram negative hannah#2 Staphylococcus species Radiography Diagnostic Testing: Radiology Impression Lower Extremity MRI 01/31/23 10:03 IMPRESSION: 1. Extensive edema involving the great toe areas of ulceration consistent with extensive cellulitis and subtle areas suspicious of soft tissue emphysema. Evidence of diffuse marrow edema involving the distal phalanx the great toe and the distal extremity including the head and portion of the neck of the proximal phalanx of the great toe. Findings are suspicious of osteomyelitis. 2. Remaining bony elements have normal appearance. 3. Moderate edema/myositis involving the musculature along the plantar surface of the forefoot at the level of the great toe. There are findings suspicious of developing phlegmon within the musculature along the plantar surface of the 1st metatarsal. Moderate myositis is noted. Electronically Signed: Sanjeev Vincent MD at 17:51 EST , Physical Exam Const alert and no apparent distress HEENT HEENT Narrative: bridgett face. nontoxic. afebrile. Extremity Extremity Narrative: left foot wrapped--did not remove. Still very malodorous despite dressing. Neuro Sensorium / Orientation: awake and alert Psych affect normal Assessment & Plan Assessment/Plan (1) Cellulitis of left foot: PLAN: Severe infection Does have subcutaneous air Concerning for osteomyelitis Antibiotics with vancomycin and PIP Tazo MRI: showed extensive edema involving the great toe areas of ulceration cw extensive cellulitis and suble areas suspicious of soft tissue emphysema. Concerning for osteomyelitis involving distal phalanx of the great toe. Myositis ABIs final report pending, but documented 1.27 on right 1.[address] Moore, podiatry, has been contacted by the ED as well as myself. I did inform the patient that he will require surgery at least to clean up the tissue but may require further surgery such as partial amputation. This is complicated by underlying neuropathy. Patient stated was previously due to heart failure but I suspect the patient actually may have diabetic neuropathy. (2) Diabetes mellitus, type 2: QUALIFIERS: Diabetes mellitus superintendent container terminal insulin use: without [facility] use Diabetes mellitus complication status: with neurologic complications Diabetes mellitus complication detail: with unspecified neuropathy Qualified Code(s): E11.40 - Type 2 diabetes mellitus with diabetic neuropathy, unspecified PLAN: With neuropathy. Previously undiagnosed. a1c 11.4. Continue SSI. Start basal insulin Nutrition to advise on diet recommendations. PLAN: Plan Chronic conditions HEATHER: Patient states that he is compliant with CPAP. Patient bring his CPAP in use. HFpEF: EF of 50% from 2D echocardiogram on September 02, 2013. Currently compensated. Hold off on the furosemide for now. Suspected diabetes mellitus type 2: Patient's glucose was in the 400s when he was here last week. Patient be on a diabetic diet as well as sliding scale insulin. Check an A1c. Obesity: BMI of 44 kg/m?. VTE prophylaxis with enoxaparin Charges/Coding Visit Charges Inpatient E&M: 71592 Subs Hosp L2
--- NOTE | 2023-02-01 08:54 | WOUNDNOTE ---
Plan is for operative debridement of the left foot per Dr Moore today. will continue to follow postoperatively.
[2023-02-01 09:58] LABS: Vancomycin, Trough Level 9.4 ug/mL (5.0-15.0)
--- NOTE | 2023-02-01 10:15 | CASEMGMT ---
RN CM Face to Face with patient for initial transition planning/care coordination assessment. RN CM introduced self and role at [facility]. Patient lying in bed, alert and oriented. Patient willing to participate in assessment and is able to answer all questions appropriately. Care providers, pharmacy, and demographics verified. Patient wishes to discharge home, will monitor for HHC vs SNF pending course of treatment and progress with therapy. Patient states he has no further needs or concerns at this time. CM to follow for discharge planning needs that may arise. PCP: No PCP, List provided to patient Specialists: DAVE, cardiology; Carlie, pulmonology Preferred Pharmacy: [email or web address] Insurance: [employer] Prescription Benefit: yes Living Will/HPOA: none LNOK: mother Living Arrangements: Román lives alone in a single story home with 4 steps to enter. Patient states he was independent at home. Transportation: self, friend DME/HHC: Patient has cane and cpap at home. No previous HHC or SNF Disposition Plan: TBD, anticipate HHC vs SNF pending progress with therapy and course of treatment Scarlett DE JESUS, RN, CM
--- NOTE | 2023-02-01 10:18 | PCM.RX.CS ---
Consult Antibiotic Management Pharmacy has been consulted to manage selected antiobiotic: Vancomycin Type of Intervention Type of Consult: Follow-up Suspected Infection Suspected Infection: Osteomyelitis Prior Doses of Antibiotics Prior Doses of Antibiotics Received/Current Regimen: 01/31/23 @ 0953 2000mg of vancomycin 01/31/23 @ 1835 1250mg of vancomycin 02/01/23 @ 0132 1250mg of Vancomycin Labs Labs: Sodium 132 mmol/L (136-145) L 02/01/23 02:11 Potassium 3.9 mmol/L (3.5-5.1) 02/01/23 02:11 Chloride 100 mmol/L (98-107) 02/01/23 02:11 Carbon Dioxide 23.0 mmol/L (21.0-32.0) 02/01/23 02:11 Anion Gap 9 (5-15) 02/01/23 02:11 BUN 15 mg/dL (7-18) 02/01/23 02:11 Creatinine 0.56 mg/dL (0.70-1.30) L 02/01/23 02:11 Est GFR (MDRD) Af Amer 198 mL/min (>60) 02/01/23 02:11 Est GFR (MDRD) Non-Af 164 mL/min (>60) 02/01/23 02:11 BUN/Creatinine Ratio 26.8 RATIO (10-20) H 02/01/23 02:11 Glucose 362 mg/dL (74-106) H 02/01/23 02:11 Vancomycin Trough 9.4 ug/mL (5.0-15.0) 02/01/23 09:12 Microbiology Microbiology: Microbiology 01/31/23 13:08 Urine, Clean Catch Urine Culture - Preliminary Culture exhibits no growth. 01/31/23 09:10 Wound Drainage - Toe Wound Culture - Preliminary Gram negative hannah Gram negative hannah#2 Staphylococcus species Dosing Weight Weight used for dosin kg Goal Trough Goal Trough: 15-20 mcg/mL Pharmacy Plan for Drug Dosing Pharmacy Plan for Drug Dosing: Increase dose of Vancomycin to 1500mg every 8 hours, due to less than therapeutic trough Pharmacy Service will continue to monitor and adjust dosing as required. Follow-Up Labs Follow-Up Labs: Trough: Vancomycin Date/Time Labs Ordered Labs to be done on [date and time ordered]: 02/02/23 @ 1030
[2023-02-01] MEDS: Vancomycin HCl 1,500 MG in 0.9% Normal Saline (500mL Bag) 500 ML 250 MG IV ×2 (11:24→18:33)
--- NOTE | 2023-02-01 11:41 | CASEMGMT ---
Social Work As per RN upon admission, pt does not have LW/POA and declined further information. KING Santacruz
[2023-02-01 11:55] LABS: Bedside Glucose 288 mg/dL (74-106)
--- NOTE | 2023-02-01 12:00 | RAD_ITS ---
EXAM: XR LEFT FOOT, 2 VIEWS CLINICAL INDICATION: AMPUTATION TECHNIQUE: Frontal and lateral views of the left foot. COMPARISON: No relevant prior studies available. FINDINGS: BONES/JOINTS: Images were obtained intraoperatively. These show amputation at the base of the first through fifth metatarsals. No acute fracture. No subluxation. Normal alignment. Preservation of the joint space. No sclerotic or destructive changes observed. SOFT TISSUES: Unremarkable. No soft tissue swelling or gas. No radiopaque foreign body. RAD/Foot 2 Views IMPRESSION: Intraoperative images show amputation of the first through fifth metatarsals and phalanges. Electronically Signed: Ac Long MD at 16:56 EST ,
[2023-02-01] MEDS: 0.9% Normal Saline (1000mL) 1,000 ML 15 ML IV (12:23)
--- NOTE | 2023-02-01 12:45 | EKG12_ITS ---
Test Reason : POST OP Blood Pressure : / mmHG Vent. Rate : 095 BPM Atrial Rate : 095 BPM P-R Int : 186 ms QRS Dur : 140 ms QT Int : 418 ms P-R-T Axes : 049 052 006 degrees QTc Int : 525 ms Normal sinus rhythm Right bundle branch block Abnormal ECG When compared with ECG of 31-JAN-2023 10:49, MANUAL COMPARISON REQUIRED, DATA IS UNCONFIRMED Confirmed by JASON OCONNELL, GULSHAN ([id number]), news editor JUSTINO TORRES ([id number]) on 02/16/2023 12:59:23 PM Referred By: SONDRA Confirmed By:GULSHAN GOMEZ MD
[2023-02-01 13:18] LABS: Troponin-I HS 5 pg/mL (3.0-78.0)
[2023-02-01 13:18] LABS: Troponin-I HS 4 pg/mL (3.0-78.0)
[2023-02-01] MEDS: Lidocaine 1% (20 ml mdv) 20 ML Vial (14:10)
[2023-02-01] MEDS: Bupivacaine Mpf 0.5% 30 ML VIAL (14:10)
[2023-02-01] MEDS: VANCOMYCIN HCL 1 GM VIAL IV (15:38)
--- NOTE | 2023-02-01 16:39 | PCM.OPRPT ---
Problems Associated Problem List Diagnoses (1) Osteomyelitis of great toe of left foot: (2) Cellulitis of left foot: (3) Abscess of left foot: (4) Equinus deformity of left foot: (5) Diabetes mellitus, type 2: Report of Operation Date of Procedure: 02/01/23 Pre-Operative Diagnosis: 1. Osteomyelitis left hallux and first metatarsal left foot 2. Abscess left foot 3. Cellulitis left foot 4. Gastrocnemius?soleus equinus deformity left foot 5. Diabetes mellitus type 2 with peripheral polyneuropathy Post-Operative Diagnosis: 1. Osteomyelitis left hallux and first metatarsal left foot 2. Abscess left foot 3. Cellulitis left foot 4. Gastrocnemius?soleus equinus deformity left foot 5. Diabetes mellitus type 2 with peripheral polyneuropathy Surgery/Procedure Performed:: 1. Tendo Achilles lengthening left foot 2. Transmetatarsal amputation left foot 3. Incision and drainage of deep abscess with wide debridement of left foot 4. Sharp debridement to the level of bone left foot 5. Tissue rearrangement/advancement flap left foot Description of Surgical Findings:: See operative note for findings Surgeon: Jay Moore lumber bearer: Emeterio Cohen DPM PGY-1 Type of Anesthesia: General and Local (20 cc one-to-one mixture of 1% lidocaine plain and 0.5% Marcaine plain) Specimen's removed: Tissue left foot Swab culture abscess left foot Bone left hallux Tissue left forefoot Bone left forefoot Drains: None Estimated Blood Loss (mL): < 30mL Description of Procedure: HPI/indication: Patient is a 52-year-old male who presents to [facility] on 01/31[facility]23 with left foot infection. Patient states infection started 2 weeks ago and he was caring for it at home consisting of Epsom salt soaks, rubbing alcohol soaks, and peroxide soaking. States that infection continue to worsen with worsening redness, drainage, and foul odor prompting him to report to the ED for evaluation. Upon presentation to ED glucose noted to be elevated and A1c was obtained and returned 11.4%. Patient was newly diagnosed diabetic. Patient does have evidence of peripheral neuropathy as he reports no pain despite worsening foot infection. Radiograph of the left foot did demonstrate soft tissue emphysema overlying the distal hallux with significant soft tissue swelling. MRI was obtained demonstrating osteomyelitis of the left hallux with soft tissue emphysema over the distal hallux and deep abscess pocket along the flexor tendon extending proximally to the midshaft of the first metatarsal. Also demonstrated on MRI was dorsal and plantar soft tissue wounds of the hallux and dorsal foot wound overlying the first metatarsal, second metatarsal, and third metatarsal heads. I discussed the MRI results with him and that likely amputation would be required for salvage of the left foot. Patient voices understanding that this is not an elective procedure but a limb salvage procedure to salvage as much of the foot as possible. I discussed with him the plan for tendo Achilles lengthening of the left foot followed by transmetatarsal amputation of the left foot with debridement of deep abscess of the left foot. I discussed the risks and complications. Discussed risks include but are not limited to the following: Pain, continued pain, phantom pain, complex regional pain syndrome, addiction to pain medication, infection, neuritis/numbness, swelling, scarring, poor cosmetic result, delayed healing/nonhealing, dehiscence, difficulty wearing shoes, inability to wear shoes, overcorrection/under correction, allergic reaction, blood clot, stroke, heart attack, loss of function, loss of limb, loss of life. Patient voices understanding these and was able to repeat these back. Patient wishes to proceed forward with surgical intervention. Consent was signed freely by the patient. No promises were made. No guarantees were made. All diagnostic data was reviewed prior to entering the OR. Left lower extremity was marked prior to entering the OR. Procedure: Under mild sedation patient was brought to the operating room placed on the table in the supine position. Patient was secured to the table with safety belt. Following induction of IV anesthetic a pneumatic thigh tourniquet was positioned about the left thigh. A left hip bump was utilized via a blanket bump. Left lower extremity was elevated with a blanket bump. A local anesthetic block was then performed about the proximal lower extremity consisting of 20 cc one-to-one mixture 1% lidocaine plain and 0.5% Marcaine plain. The left lower extremity was then scrubbed, prepped, and draped in the usual aseptic manner. Incision placement was then confirmed with a marking pen via fluoroscopic guidance. The left lower extremity was then elevated and the pneumatic thigh tourniquet was inflated to 300 mmHg. At this time attention was directed to the posterior aspect of the left lower extremity where 2 percutaneous stab incisions were made to the lateral aspect of the Achilles tendon with 1 percutaneous stab incision to the medial aspect of the Achilles tendon with even appropriate length between incisions utilizing a #15 blade. Next, a tendo Achilles lengthening was performed utilizing #15 blade. The foot was gently dorsiflexed with noted improvement in dorsiflexion following tendo Achilles lengthening. Stab incisions were reapproximated utilizing 2-0 Prolene in simple interrupted fashion. At this time attention was then directed to the infected left forefoot. Utilizing a #15 blade a fishmouth shaped incision was performed about the metatarsals dorsally just proximal to the dorsal ulceration. Fishmouth shaped incision was then continued to the plantar aspect close to the base of the digits keeping as much healthy plantar skin as possible. At this time a small plantar incision was made at the base of the hallux utilizing a #15 blade with immediate foul odor appreciated upon entry into the subcutaneous tissue. There was a significant amount of grayish dishwater purulent drainage appreciated. Swab cultures were obtained of the purulent drainage of the left hallux and sent for aerobic and anaerobic cultures. The digits 1 through 5 were sharply disarticulated at the corresponding metatarsophalangeal joints and passed from the operative field to the table in toto. Next, at the operative table the left hallux was sectioned for tissue cultures with cultures going to microbiology and pathology. There was foul odor noted to the tissue in upon entry to the left proximal and distal phalanx of the hallux. Left distal phalanx of the hallux was noted to be black in color with foul odor and purulence upon sectioning the bone with a bone cutter. Bone cultures of the distal and proximal phalanx of the hallux were sent to microbiology for culture and the other half sent to pathology for analysis. At this time attention was directed back to the forefoot at the operative field where utilizing fluoroscopic guidance a transmetatarsal amputation was performed utilizing a sagittal saw retaining the metatarsal parabola. Bone was freed of all soft tissue attachments via sharp dissection and passed from the operative field to the table in toto. Bone of the metatarsals and tissue were sent to pathology for permanent. It is noted that the first metatarsal head did appear dusky and discolored consistent with osteomyelitis. The medial aspect of the second metatarsal head also appeared dusky in color consistent with osteomyelitis. At this time deep abscess pocket was noted plantar to the first through third metatarsals following the flexor hallucis longus tendon and flexor digitorum longus tendons. Abscess and all necrotic tissue were debrided via sharp dissection to healthy bleeding tissue. Debridement was performed via #15 blade, forceps, and rongeur. Debridement of left foot performed down to the level of bone removing all abscess, nonviable tissue, biofilm, slough, necrotic muscle, and necrotic bone. All flexor tendons and extensor tendons were identified and clamped with a hemostat, rolled and transected as far proximal as possible. Next, site was copiously irrigated with a 3000 cc pulse lavage. Following irrigation all surrounding soft tissues appeared healthy in color with adequate bleeding. There was no further abscess pockets noted nor expressible. Bone was noted to be hard with healthy viable coloration. Next, a soft tissue flap was prepared for adequate soft tissue closure with plantar advancement of tissue performed. Flap was remodeled for soft tissue closure. Flap noted to be of healthy viability and aesthetically pleasing for closure. Final fluoroscopic imaging was obtained of the left foot demonstrating transmetatarsal amputation. Metatarsal bones were felt for any plantar prominences or sharp bony edges and none were detected. Next, 1 g of vancomycin powder was placed about the dorsal and plantar tissues and the deep tissue was closed utilizing 0 Vicryl. Next, the subcutaneous tissues were closed utilizing 4-0 Monocryl. At this time the pneumatic thigh tourniquet was deflated and a prompt hyperemic response was noted to the distal flap of the left foot. It is noted that the soft tissue flap did pink up indicating healthy viability. The skin was reapproximated utilizing 2-0 Prolene in simple interrupted fashion. Incision sites were then dressed with Betadine soaked Adaptic, 4 x 4 gauze, Kerlix x2, 4 inch Tres wrap, 6 inch Tres wrap. A well-padded posterior splint was applied and anchored with a 4 inch Tres wrap and 6 inch Tres wrap. The patient tolerated the anesthesia and procedure well and was transported to PACU with vital signs stable and vascular status intact to the left foot. Postoperative imaging in PACU was obtained and reviewed prior to leaving. Patient will return to the floor once anesthesia protocol is met. He is to remain nonweightbearing to the left lower extremity. He is to elevate left lower extremity at all times and rest for postoperative edema control. Podiatry will continue to follow while in house for postoperative care. Grafts/Implants Used: 1 gram vancomycin powder Complications None Admit VTE Documentation VTE Present on Admission: No VTE Mechan Device Prophylaxis: SCD's VTE Pharm Prophylaxis ordered?: Yes
--- NOTE | 2023-02-01 16:45 | RAD_ITS ---
EXAM: XR LEFT FOOT COMPLETE, 3 OR MORE VIEWS CLINICAL INDICATION: Postop transmetatarsal amputation TECHNIQUE: Frontal, lateral and oblique views of the left foot. COMPARISON: 01/31/2023 FINDINGS: BONES/JOINTS: There has been amputation at the base of the first through fifth metatarsals. No acute fracture. No subluxation. Normal alignment. Preservation of the joint space. No sclerotic or destructive changes observed. SOFT TISSUES: Unremarkable. No soft tissue swelling or gas. No radiopaque foreign body. RAD/Foot min 3 Views IMPRESSION: Amputation of the base of the first through fifth metatarsals. Electronically Signed: Ac Long MD at 17:06 EST ,
[2023-02-01 16:52] LABS: Bedside Glucose 311 mg/dL (74-106)
[2023-02-01] MEDS: Ketorolac 15 MG/ML Vial IV (17:23)
[2023-02-01] MEDS: Enoxaparin 40 MG/0.4 ML Syringe SC (22:07)
[2023-02-01] MEDS: Insulin Glargine-YFGN 100 UNIT/ML Pen 20 UNIT SC (22:08)
[2023-02-01 23:16] LABS: Bedside Glucose 403 mg/dL (74-106)
[2023-02-02] VITALS (7 sets, daily range): BP systolic 112–141; BP diastolic 54–82; PULSE 85–94; RESP 15–18; TEMP 36–37.1; O2SAT 95–100
[2023-02-02] MEDS: Vancomycin HCl 1,500 MG in 0.9% Normal Saline (500mL Bag) 500 ML 250 MG IV (03:38)
[2023-02-02] MEDS: Piperacil/Tazobactam 3.375 GM in 0.9% Normal Saline (50mL MB+) 50 ML IV ×3 (06:25→21:38)
[2023-02-02] MEDS: Insulin Lispro 100 UNIT/ML INSULN.PEN SC ×4 (06:29→21:40)
[2023-02-02 07:22] LABS: Bedside Glucose 265 mg/dL (74-106)
--- NOTE | 2023-02-02 08:06 | PN_ITS ---
Subjective Subjective Patient seen resting in bed early this a.m. with left foot elevated s/p transmetatarsal amputation with tendo Achilles lengthening left foot. He states he has gotten up to go to the bathroom overnight and denies difficulty voiding. States that he has remained nonweightbearing to the left lower extremity. States overall he does feel good and denies pain to the left foot. He does have history of neuropathy. Denies constitutional symptoms. Denies further complaints. Objective Data Objective Data Vital Signs: Vital Signs Temp Pulse Resp BP Pulse Ox O2 Del Method 98.1 F 87 18 130/82 H 100 Room Air 02/02/23 05:34 02/02/23 05:34 02/02/23 05:34 02/02/23 05:34 02/02/23 05:34 02/02/23 05:34 Oxygen Delivery Method Room Air Weight: 131.4 kg Body Mass Index (BMI) 44.0 Intake & Output: Intake and Output for Last 24 Hours 01/31/23 02/01/23 02/02/23 23:59 23:59 23:59 Intake Total 1115 / 1115 2254.0 / 2254.0 530 / 530 Output Total 201 / 201 1400 / 1400 Balance 1115 / 1115 2053.0 / 2053.0 -870 / -870 Lab / Micro Data 02/01/23 02:11 02/01/23 02:11 Labs: Laboratory Results - last 24 hr 02/01/23 02:11: Hemoglobin A1c 11.4 H, Troponin I High Sens 5 02/01/23 09:12: Vancomycin Trough 9.4 02/01/23 11:14: POC Glucose 288 H 02/01/23 12:50: Troponin I High Sens 4 02/01/23 16:34: POC Glucose 311 H 02/01/23 21:41: POC Glucose 403 H 02/02/23 06:28: POC Glucose 265 H Micro: Microbiology 01/31/23 09:10 Wound Drainage - Toe Gram Stain - Final 01/31/23 09:10 Wound Drainage - Toe Wound Culture - Preliminary Gram negative hannah Gram negative hannah#2 Staphylococcus species 01/31/23 13:08 Urine, Clean Catch Urine Culture - Preliminary Culture exhibits no growth. Radiography Diagnostic Testing: Radiology Impression Ankle Brachial Index 01/31/23 09:28 Interpretation Summary Triphasic Doppler waveforms are noted at ankle level bilaterally. Pulse-volume recordings appear satisfactory at ankle level bilaterally. Resting ankle-brachial indices are normal bilaterally. There is no evidence of significant arterial occlusive disease in the lower extr emities bilaterally. Ordering Physician: Mario Mathews Referring Physician: N/A Performed By: Frankie Tan RVT Foot X-Ray 02/01/23 12:00 IMPRESSION: Intraoperative images show amputation of the first through fifth metatarsals and phalanges. Electronically Signed: Ac Long MD at 16:56 EST , Foot X-Ray 02/01/23 16:45 IMPRESSION: Amputation of the base of the first through fifth metatarsals. Electronically Signed: Ac Long MD at 17:06 EST , Physical Exam Const alert, oriented x3, no apparent distress and well nourished General Appearance: cooperative Nutritional Appearance: morbidly obese HEENT normocephalic Eyes General Eye: normal appearance of both eyes Neck General: normal visual inspection Lymph Lymphatic: no lymphadenopathy noted and no lymphedema noted Resp normal respiratory effort Cardio regular rate and regular rhythm Extremity no calf tenderness Extremity Narrative: DP and PT pulses palpable bilateral. Capillary fill time to the digits less than 5 seconds bilateral. Dermatological: Transmetatarsal amputation of the left foot with intact sutures at the distal stump and intact sutures posterior overlying the Achilles tendon. No signs of infection. Erythema overlying forefoot decreasing. No purulent drainage noted. Skin flap appears healthy and pink in coloration with excellent viability. Musculoskeletal: Muscle strength 5 of 5 age-appropriate. There is decreased range of motion of the ankle joint in dorsiflexion with the knee extended without pain or crepitus. There is component of equinus noted bilateral. Tr ansmetatarsal amputation left foot with intact sutures. Skin no rashes or lesions noted, skin turgor normal and no jaundice Neuro oriented x3 and moves all extremities Assessment & Plan Assessment/Plan (1) Osteomyelitis of great toe of left foot: (2) Cellulitis of left foot: (3) Abscess of left foot: (4) Equinus deformity of left foot: (5) Diabetes mellitus, type 2: QUALIFIERS: Diabetes mellitus complication detail: with unspecified neuropathy Diabetes mellitus complication status: with neurologic complications Diabetes mellitus nursing home insulin use: without regional intermodal truck driver use Qualified Code(s): E11.40 - Type 2 diabetes mellitus with diabetic neuropathy, unspecified PLAN: Plan Patient seen and evaluated He is s/p tendo Achilles lengthening of the left foot, transmetatarsal amputation of the left foot, incision and drainage with wide debridement, sharp debridement to the level of bone, and tissue advancement flap of the left foot. DOS: 02/01/2023. POD #1 Transmetatarsal amputation noted to the left foot. Sutures intact at distal stump. Skin flap demonstrates healthy viability and is pink in color. There is resolving erythema noted to the left foot post surgery. 1 g of vancomycin pow roby was placed at the amputation site prior to closure. Awaiting updated laboratory studies. Presurgical labs: WBC 18.5, ESR 31, CRP 119, lactic acid 2.3 (down from 2.7) Urinary analysis demonstrates protein 30, glucose 1000, 50 ketones, 25 occult blood, nitrite positive, 500 leukocyte esterase. Blood culture obtained, awaiting results Wound culture obtained demonstrating gram-negative organisms and gram-positive organisms. Staph aureus protein A PCR positive MRSA PCR negative Currently on IV Vanco/Zosyn Surgical cultures: Tissue demonstrates gram-negative organisms and gram-positive organisms, awaiting final results. Bone demonstrates gram-negative organisms and gram-positive organisms, awaiting final results. LEAS performed 01/31/2023 demonstrating right ankle YUE PT 143, indices 1.27; DP 144, indices 1.22; triphasic PT and DP pulses right leg; left leg demonstrates ankle PT 136, indices 1.20; DP 131, indices 1.16; triphasic PT and DP pulses left leg. No evidence of occlusive arterial disease. Imaging: Radiograph left foot demonstrates diffuse soft tissue swelling and subcutaneous soft tissue emphysema particularly over the distal phalanx of the great toe. MRI performed 04/02/2022 demonstrates decreased T1 signal of the distal phalanx and proximal phalanx of the hallux with corresponding increased T2 signal of the distal phalanx and proximal phalanx of the hallux consistent with osteomyelitis. There is evidence of soft tissue emphysema about the hallux and significant soft tissue swelling of the hallux and forefoot of the left foot. There is a fluid collection within musclulature overlying the plantar first metatarsal. Postsurgical radiographs 02/01/2023 demonstrate transmetatarsal amputation of the left foot. Dressings: Betadine soaked Adaptic to incision sites, 4 x 4 gauze, ABD, Kerlix x2, 4 inch Tres wrap and 6 inch Tres wrap. Posterior splint applied to left lower extremity and anchored with a 4 inch Tres wrap and 6 inch Tres wrap. Patient is newly diagnosed diabetic with A1c 11.4% Discussed proper diabetic diet and foods to avoid. Discussed with him need to see audio visual aids director to aid in his diet modification. Encouraged active lifestyle modification to not only improve blood sugar/A1c but to aid in weight loss as patient is morbidly obese. Discussed checking feet daily given history of wounds diabetes. Discussed with patient the need to follow-up sooner for foot care. Patient to remain nonweightbearing to the left foot with assistance of a walker. He is to continue elevating left foot at all times of rest for postoperative edema control. Medicine team currently following for medical management, they are greatly appreciated Infectious disease consulted for antibiotic management, management is appreciated. Wound nurse following for assistance of dressing changes, assistance is appreciated. Podiatry will continue to follow while in house. Currently anticipating discharge home, likely Tuesday. Patient will continue to follow in office for postoperative care following discharge. Jr. Kristine EstesP.M. [facility] [phone]
--- NOTE | 2023-02-02 08:44 | WOUNDNOTE ---
wound photo: left foot
--- NOTE | 2023-02-02 08:45 | WOUNDNOTE ---
wound photo: left foot
--- NOTE | 2023-02-02 08:45 | WOUNDNOTE ---
wound photo: left foot
--- NOTE | 2023-02-02 08:46 | WOUNDNOTE ---
wound photo: left Achilles
--- NOTE | 2023-02-02 08:52 | PN.HOSP_ITS ---
Reason for Visit Reason for Visit: Diagnoses Type 2 diabetes mellitus with diabetic neuropathy, unspecified (01/31/23) Morbid (severe) obesity due to excess calories (01/31/23) Obstructive sleep apnea (adult) (pediatric) (01/31/23) Polyneuropathy, unspecified (01/31/23) Essential (primary) hypertension (01/31/23) Pulmonary hypertension, unspecified (01/31/23) Chronic systolic (congestive) heart failure (01/31/23) Peripheral vascular disease, unspecified (01/31/23) Asymptomatic varicose veins of unspecified lower extremity (01/31/23) Cutaneous abscess of left foot (01/31/23) Cellulitis of left lower limb (01/31/23) Other acquired deformities of left foot (01/31/23) Osteomyelitis, unspecified (01/31/23) Subjective Subjective No new events. Feels well postoperatively. Objective Data Objective Data Vital Signs: Vital Signs Temp Pulse Resp BP Pulse Ox O2 Del Method 36.7 C 87 18 130/82 H 100 Room Air 02/02/23 05:34 02/02/23 05:34 02/02/23 05:34 02/02/23 05:34 02/02/23 05:34 02/02/23 05:34 Oxygen Delivery Method Room Air Weight: 131.4 kg Body Mass Index (BMI) 44.0 Intake & Output: Intake and Output for Last 24 Hours 01/31/23 02/01/23 02/02/23 23:59 23:59 23:59 Intake Total 1115 / 1115 2254.0 / 2254.0 530 / 530 Output Total 201 / 201 1400 / 1400 Balance 1115 / 1115 2053.0 / 2053.0 -870 / -870 Lab / Micro Data 02/02/23 13:31 02/02/23 13:31 Labs: Laboratory Results - last 24 hr 02/01/23 02:11: Troponin I High Sens 5 02/01/23 09:12: Vancomycin Trough 9.4 02/01/23 11:14: POC Glucose 288 H 02/01/23 12:50: Troponin I High Sens 4 02/01/23 16:34: POC Glucose 311 H 02/01/23 21:41: POC Glucose 403 H 02/02/23 06:28: POC Glucose 265 H Micro: Microbiology 01/31/23 09:10 Wound Drainage - Toe Gram Stain - Final 01/31/23 09:10 Wound Drainage - Toe Wound Culture - Preliminary Gram negative hannah Gram negative hannah#2 Staphylococcus species 01/31/23 13:08 Urine, Clean Catch Urine Culture - Preliminary Culture exhibits no growth. Radiography Diagnostic Testing: Radiology Impression Ankle Brachial Index 01/31/23 09:28 Interpretation Summary Triphasic Doppler waveforms are noted at ankle level bilaterally. Pulse-volume recordings appear satisfactory at ankle level bilaterally. Resting ankle-brachial indices are normal bilaterally. There is no evidence of significant arterial occlusive disease in the lower extremities bilaterally. Ordering Physician: Mario Mathews Referring Physician: N/A Performed By: Frankie Tan RVT Foot X-Ray 02/01/23 12:00 IMPRESSION: Intraoperative images show amputation of the first through fifth metatarsals and phalanges. Electronically Signed: Ac Long MD at 16:56 EST , Foot X-Ray 02/01/23 16:45 IMPRESSION: Amputation of the base of the first through fifth metatarsals. Electronically Signed: Ac Long MD at 17:06 EST , Physical Exam Const alert and no apparent distress HEENT head/scalp atraumatic Extremity Extremity Narrative: Left foot bandaged and wrapped. Did not remove. Did review images taken by wound care, patient has well approximated distal foot incision post transmetatarsal amputation. Neuro oriented x3 Sensorium / Orientation: awake and alert Psych affect normal Assessment & Plan Assessment/Plan (1) Cellulitis of left foot: PLAN: Severe infection. Presented with subcutaneous emphysema as well as suspicion for osteomyelitis on his foot. Antibiotics with vancomycin and PIP Tazo Data * MRI: showed extensive edema involving the great toe areas of ulceration cw extensive cellulitis and suble areas suspicious of soft tissue emphysema. Concerning for osteomyelitis involving distal phalanx of the great toe. Myositis * ABIs within normal limits * Culture on the 6 thus far showing gram-negative rods and Staphylococcus species. Cultures on the seventh currently pending Patient underwent surgery on the seventh: That included tendo Achilles lengthening of the left foot, transmetatarsal amputation of the left foot, incision and drainage of deep abscess with wide debridement of the left foot, sharp debridement to the level of the bone left foot, tissue rearrangement/advancement flap left foot. ID on consult (2) Diabetes mellitus, type 2: QUALIFIERS: Diabetes mellitus complication detail: with u nspecified neuropathy Diabetes mellitus complication status: with neurologic complications Diabetes mellitus terminal operations supervisor insulin use: without terminal operations supervisor use Qualified Code(s): E11.40 - Type 2 diabetes mellitus with diabetic neuropathy, unspecified PLAN: With neuropathy. Previously undiagnosed. Patient has been informed that he is diabetic and will require insulin upon discharge. He will require instructions about diet, checking his glucose as well as he will need to demonstrate administering insulin prior to him being discharged. a1c 11.4. Continue SSI. Start basal insulin 20 units BID. Add scheduled prandial insulin. Nutrition to advise on diet recommendations. Patient will also need instructions about administration of insulin prior to discharge. PLAN: Plan Chronic conditions * HEATHER: Patient states that he is compliant with CPAP. Patient bring his CPAP in use. * HFpEF: EF of 50% from 2D echocardiogram on September 02, 2013. Currently compensated. Hold off on the furosemide for now. * Suspected diabetes mellitus type 2: Patient's glucose was in the 400s when he was here last week. Patient be on a diabetic diet as well as sliding scale insulin. Check an A1c. * Obesity: BMI of 44 kg/m?. VTE prophylaxis with enoxaparin Disposition: Prior pending culture results and IDs final recommendations. Patient states that he is going to be staying with his mother as is at her home is currently handicapped accessible with ramps and other necessities. He does have some concerned about the medications. I did tell him that we would defer that to social work. Charges/Coding Visit Charges Inpatient E&M: 05880 Subs Hosp L2
[2023-02-02] MEDS: Lisinopril 10 MG Tablet PO ×2 (09:12→21:40)
[2023-02-02] MEDS: Juven (unflavored) Packet 1 PACKET PO ×2 (09:12→17:44)
[2023-02-02] MEDS: Insulin Glargine-YFGN 100 UNIT/ML Pen 20 UNIT SC ×2 (09:13→21:41)
[2023-02-02] MEDS: Enoxaparin 40 MG/0.4 ML Syringe SC ×2 (09:13→21:39)
[2023-02-02] MEDS: Metoprolol Tartrate 100 MG Tablet 150 MG PO ×2 (09:13→21:40)
[2023-02-02] MEDS: dilTIAZem CD 120 MG Capsule PO ×2 (09:14→21:40)
[2023-02-02] MEDS: Vancomycin Trough/Random Due 1 LAB MC ×2 (09:15)
[2023-02-02 11:09] LABS: Vancomycin, Trough Level 13.6 ug/mL (5.0-15.0)
[2023-02-02] MEDS: Insulin Lispro 100 UNIT/ML INSULN.PEN 8 UNIT SC ×2 (11:39→17:43)
--- NOTE | 2023-02-02 11:39 | PCM.RX.CS ---
Consult Antibiotic Management Pharmacy has been consulted to manage selected antiobiotic: Vancomycin Type of Intervention Type of Consult: Follow-up Suspected Infection Suspected Infection: Skin/Soft tissue and Osteomyelitis Prior Doses of Antibiotics Prior Doses of Antibiotics Received/Current Regimen: current dose is 1500mg IV q8h Labs Labs: Sodium 132 mmol/L (136-145) L 02/01/23 02:11 Potassium 3.9 mmol/L (3.5-5.1) 02/01/23 02:11 Chloride 100 mmol/L (98-107) 02/01/23 02:11 Carbon Dioxide 23.0 mmol/L (21.0-32.0) 02/01/23 02:11 Anion Gap 9 (5-15) 02/01/23 02:11 BUN 15 mg/dL (7-18) 02/01/23 02:11 Creatinine 0.56 mg/dL (0.70-1.30) L 02/01/23 02:11 Est GFR (MDRD) Af Amer 198 mL/min (>60) 02/01/23 02:11 Est GFR (MDRD) Non-Af 164 mL/min (>60) 02/01/23 02:11 BUN/Creatinine Ratio 26.8 RATIO (10-20) H 02/01/23 02:11 Glucose 362 mg/dL (74-106) H 02/01/23 02:11 Vancomycin Trough 13.6 ug/mL (5.0-15.0) 02/02/23 10:18 Microbiology Microbiology: Microbiology 01/31/23 09:10 Wound Drainage - Toe Gram Stain - Final 01/31/23 09:10 Wound Drainage - Toe Wound Culture - Preliminary Gram negative hannah Gram negative hannah#2 Staphylococcus species 01/31/23 09:10 Wound Drainage - Toe Anaerobic Culture - Preliminary Checking for anaerobes, further studies to follow. 01/31/23 07:24 Blood Culture (Wb) - Anticubital Left Blood Culture - Preliminary No growth in 48 hours. 01/31/23 08:34 Blood Culture (Wb) - Right Hand Blood Culture - Preliminary No growth in 48 hours. 01/31/23 13:08 Urine, Clean Catch Urine Culture - Final Culture exhibits no growth. Dosing Weight Weight used for dosin.4 kg Estimated Creatinine Clearance Estimated Creatinine Clearance: >100ml/min Goal Trough Goal Trough: 15-20 mcg/mL Pharmacy Plan for Drug Dosing Pharmacy Plan for Drug Dosing: The vanc trough drawn at 10:18 today (approx 6.5 hrs after the previous dose) was 13.6. This is below goal range and would have been even lower if drawn closer to the 7.5-8 hr mya after the previous dose. Therefore, will increase the dose to 1750mg IV q8h. Will repeat a trough before the 4th new dose tomorrow. Pharmacy Service will continue to monitor and adjust dosing as required. Follow-Up Labs Follow-Up Labs: Trough: Vancomycin Date/Time Labs Ordered Labs to be done on [date and time ordered]: 02/03 11:30
[2023-02-02 11:59] LABS: Bedside Glucose 314 mg/dL (74-106)
[2023-02-02] MEDS: Vancomycin HCl 1,750 MG in 0.9% Normal Saline (500mL Bag) 500 ML 250 MG IV ×2 (12:36→21:36)
[2023-02-02 13:43] LABS: Absolute Lymphocyte Count 2.99 X10^3/uL (0.83-4.51); Absolute Neutrophil Count 11.9 X10^3/uL (2.0-7.7); Basophil# 0.06 X10^3/uL; Basophil% 0.4 % (0-1); Eosinophil# 0.07 X10^3/uL; Eosinophils% 0.4 % (0-5); Hematocrit 41.6 % (40-54); Lymphocyte # 2.99 X10^3/ul (0.83-4.51); Lymphocyte % 18.1 % (19-41); Mean Corp Hgb Conc 31.3 g/dL (32-36); Mean Corpuscular Hgb 28.8 pg (27.0-32.0); Monocyte# 1.23 X10^3/uL; Monocyte% 7.5 % (0-10); NRBC Flagged by Analyzer 0 % (0-5); Neutrophil # 11.93 X10^3/uL (2.7-7.7); Neutrophil % 72.4 % (47-70); Platelet Count 404 K/mm3 (150-450); RBC Distribution Width CV 12.1 % (11.6-14.6); RBC Distribution Width SD 41.1 fl (35.1-43.9); Red Blood Count 4.52 M/mm3 (4.6-6.2); White Blood Count 16.5 K/mm3 (4.4-11.0)
[2023-02-02 13:52] LABS: Anion Gap 7 (5-15); BUN 18 mg/dL (7-18); BUN/Creat Ratio 28.8 RATIO (10-20); Calcium,Total 8.3 mg/dL (8.5-10.1); Chloride 106 mmol/L (98-107); Creatinine, Serum 0.62 mg/dL (0.70-1.30); EST Glomerular Filtration Rate 145 mL/min (>60); Est Glom Filt Rate - Afr Amer 175 mL/min (>60); Glucose 279 mg/dL (74-106); Potassium 3.5 mmol/L (3.5-5.1); Sodium Level 137 mmol/L (136-145)
--- NOTE | 2023-02-02 14:03 | PCM.CONS.GEN ---
Assessment & Plan Assessment/Plan (1) Abscess of left foot: (2) Osteomyelitis of great toe of left foot: PLAN: Now s/p L TMA 02/01/[address] Moore. Cxs pending. On empiric vanc/zosyn. Will follow, thank you (3) Neuropathy: (4) Diabetes mellitus, type 2: QUALIFIERS: Diabetes mellitus detention insulin use: without detention use Diabetes mellitus complication status: with neurologic complications Diabetes mellitus complication detail: with unspecified neuropathy Qualified Code(s): E11.40 - Type 2 diabetes mellitus with diabetic neuropathy, unspecified HPI Consult Data Date of Consult: 02/02/23 HPI Narrative Reason for Consultation: osteo HPI Narrative: CAMILO MULLER, is a 52 M with DM neuropathy, presented with 2-3 days progressive L foot redness, swelling, ulceration, drainage. No fever or chills. No pain due to neuropathy. No n/v/d. No known inciting events. Admitted, started on vanc/zosyn, taken to OR 02/[address] Moore. Feeling ok today. Full ROS performed and neg except as noted above. [facility] Medical History Congestive heart failure Diabetes mellitus, type 2 Essential hypertension Hypoxia Morbid obesity Neuropathy Nonischemic cardiomyopathy Obstructive sleep apnea Pulmonary hypertension Right arm fracture Sinus tachycardia Varicose vein of leg Home Medications aspirin 81 mg chewable tablet 81 mg PO DAILY@0800 ##90 10/10/13 [Rx Last Taken Unknown] diltiazem HCl 120 mg capsule,extended release 24 hr (Cardizem CD) 120 mg PO BID #180 caps 10/15/22 [Rx Last Taken Unknown] furosemide 40 mg tablet 40 mg PO BID #180 tabs 10/15/22 [Rx Last Taken Unknown] lisinopril 10 mg tablet 10 mg PO BID #180 tabs 10/15/22 [Rx Last Taken Unknown] metoprolol tartrate 100 mg tablet 150 mg (1.5 x 100 mg) PO BID #270 tabs 10/15/22 [Rx Last Taken Unknown] Allergy/AdvReac Type Severity Reaction Status Date / Time No Known Allergies Allergy Verified 01/31/23 06:37 Family History Father CAD (coronary artery disease) COPD (chronic obstructive pulmonary disease) Mother Cancer Heart disease Surgical History History of left heart catheterization (LHC) (~10/09/13) History of open reduction and internal fixation (ORIF) procedure History of umbilical hernia repair Social History Smoking Status: Former smoker how long ago did patient quit smokin years ago alcohol intake: current alcohol intake frequency: holidays/special occasions only substance use type: does not use caffeine: No Physical Exam Const alert, oriented x3 and no apparent distress General Appearance: cooperative HEENT normocephalic and head/scalp atraumatic Eyes PERRL and EOMs intact bilaterally Neck supple and No nodes Resp normal air movement and clear to auscultation bilaterally Cardio regular rate and regular rhythm GI soft to palpation, non-tender and non-distended Extremity General Extremity: edema Skin Skin Narrative: L foot wrapped, reviewed photos Neuro CN's II-XII intact bilaterally Lab / Micro Data Attestation: I reviewed the patient's lab results. 02/02/23 13:31 02/02/23 13:31 Labs: Laboratory Results - last 24 hr 02/01/23 16:34: POC Glucose 311 H 02/01/23 21:41: POC Glucose 403 H 02/02/23 06:28: POC Glucose 265 H 02/02/23 10:18: Vancomycin Trough 13.6 02/02/23 11:36: POC Glucose 314 H 02/02/23 13:31: WBC 16.5 H, RBC 4.52 L, Hgb 13.0, Hct 41.6, MCV 92.0, MCH 28.8, MCHC 31.3 L, RDW Std Deviation 41.1, RDW Coeff of Mechelle 12.1, Plt Count 404, MPV 9.0, Immature Gran % (Auto) 1.200 H, Neut % (Auto) 72.4 H, Lymph % (Auto) 18.1 L, [place] % (Auto) 7.5, Eos % (Auto) 0.4, Baso % (Auto) 0.4, Absolute Neuts (auto) 11.9 H, Absolute Lymphs (auto) 2.99, Nucleated RBC % 0, Sodium 137, Potassium 3.5, Chloride 106, Carbon Dioxide 24.0, Anion Gap 7, BUN 18, Creatinine 0.62 L, Estim Creat Clear Calc 137.90, Est GFR (MDRD) Af Amer 175, Est GFR (MDRD) Non-Af 145, BUN/Creatinine Ratio 28.8 H, Glucose 279 H, Calcium 8.3 L Micro: Microbiology 02/01/23 Unknown Tissue - Left Foot Wound Culture - Preliminary Gram negative hannah Gram Positive Cocci 02/01/23 Unknown Bone - Left Foot Wound Culture - Preliminary Gram negative hannah Gram Positive Cocci Gram positive organism 02/01/23 Unknown Bone - Great Toe Wound Culture - Preliminary Gram negative hannah Staphylococcus species Gram positive organism 02/01/23 Unknown Wound Abcess - Left Foot Wound Culture - Preliminary Gram negative hannah Staphylococcus species 01/31/23 09:10 Wound Drainage - Toe Gram Stain - Final 01/31/23 09:10 Wound Drainage - Toe Wound Culture - Preliminary Gram negative hannah Gram negative hannah#2 Staphylococcus species 01/31/23 09:10 Wound Drainage - Toe Anaerobic Culture - Preliminary Checking for anaerobes, further studies to follow. 01/31/23 07:24 Blood Culture (Wb) - Anticubital Left Blood Culture - Preliminary No growth in 48 hours. 01/31/23 08:34 Blood Culture (Wb) - Right Hand Blood Culture - Preliminary No growth in 48 hours. 01/31/23 13:08 Urine, Clean Catch Urine Culture - Final Culture exhibits no growth. Radiology Impression Ankle Brachial Index 01/31/23 09:28 Interpretation Summary Triphasic Doppler waveforms are noted at ankle level bilaterally. Pulse-volume recordings appear satisfactory at ankle level bilaterally. Resting ankle-brachial indices are normal bilaterally. There is no evidence of significant arterial occlusive disease in the lower extremities bilaterally. Ordering Physician: Mario Mathews Referring Physician: N/A Performed By: Frankie Tan RVT Foot X-Ray 11/07/23 12:00 IMPRESSION: Intraoperative images show amputation of the first through fifth metatarsals and phalanges. Electronically Signed: Ac Long MD at 16:56 EST , Foot X-Ray 02/01/23 16:45 IMPRESSION: Amputation of the base of the first through fifth metatarsals. Electronically Signed: Ac Long MD at 17:06 EST ,
[2023-02-02 18:06] LABS: Bedside Glucose 302 mg/dL (74-106)
[2023-02-02 21:26] LABS: Bedside Glucose 277 mg/dL (74-106)
[2023-02-03] MEDS: Vancomycin HCl 1,750 MG in 0.9% Normal Saline (500mL Bag) 500 ML 250 MG IV (03:40)
[2023-02-03] MEDS: Piperacil/Tazobactam 3.375 GM in 0.9% Normal Saline (50mL MB+) 50 ML IV ×3 (03:40→22:01)
[2023-02-03 04:13] VITALS: BP 140/76; PULSE 91; RESP 16; TEMP 36.1; O2SAT 97
[2023-02-03 06:04] LABS: Absolute Lymphocyte Count 2.44 X10^3/uL (0.83-4.51); Absolute Neutrophil Count 7.3 X10^3/uL (2.0-7.7); Basophil# 0.07 X10^3/uL; Basophil% 0.6 % (0-1); Eosinophil# 0.12 X10^3/uL; Eosinophils% 1.1 % (0-5); Hematocrit 39.8 % (40-54); Hemoglobin 12.7 g/dL (13.0-16.5); Lymphocyte # 2.44 X10^3/ul (0.83-4.51); Lymphocyte % 22.3 % (19-41); Mean Corp Hgb Conc 31.9 g/dL (32-36); Mean Corpuscular Hgb 30.3 pg (27.0-32.0); Mean Platelet Vol. 9.1 fl (6.2-12.0); Monocyte# 0.92 X10^3/uL; Monocyte% 8.4 % (0-10); NRBC Flagged by Analyzer 0 % (0-5); Neutrophil # 7.26 X10^3/uL (2.7-7.7); Neutrophil % 66.5 % (47-70); Platelet Count 369 K/mm3 (150-450); RBC Distribution Width CV 12.4 % (11.6-14.6); RBC Distribution Width SD 43.2 fl (35.1-43.9); Red Blood Count 4.19 M/mm3 (4.6-6.2); White Blood Count 10.9 K/mm3 (4.4-11.0)
[2023-02-03 06:35] LABS: Anion Gap 5 (5-15); BUN 14 mg/dL (7-18); BUN/Creat Ratio 25.5 RATIO (10-20); Calcium,Total 8.2 mg/dL (8.5-10.1); Chloride 108 mmol/L (98-107); Creatinine, Serum 0.55 mg/dL (0.70-1.30); EST Glomerular Filtration Rate 168 mL/min (>60); Est Glom Filt Rate - Afr Amer 203 mL/min (>60); Estimated Creatinine Clearance 155.45 ml/min; Glucose 283 mg/dL (74-106); Potassium 3.7 mmol/L (3.5-5.1); Sodium Level 137 mmol/L (136-145)
[2023-02-03] MEDS: Insulin Lispro 100 UNIT/ML INSULN.PEN SC ×4 (08:33→22:18)
[2023-02-03] MEDS: Juven (unflavored) Packet 1 PACKET PO ×2 (08:34→16:11)
[2023-02-03] MEDS: Insulin Lispro 100 UNIT/ML INSULN.PEN 8 UNIT SC ×3 (08:34→17:28)
[2023-02-03] MEDS: Insulin Glargine-YFGN 100 UNIT/ML Pen 20 UNIT SC (08:35)
[2023-02-03] MEDS: dilTIAZem CD 120 MG Capsule PO ×2 (08:35→22:05)
[2023-02-03 08:36] VITALS: PULSE 84
[2023-02-03] MEDS: Lisinopril 10 MG Tablet PO ×2 (08:36→22:06)
[2023-02-03] MEDS: Metoprolol Tartrate 100 MG Tablet 150 MG PO ×2 (08:36→22:02)
[2023-02-03] MEDS: Enoxaparin 40 MG/0.4 ML Syringe SC ×2 (08:36→22:04)
[2023-02-03 09:25] VITALS: BP 143/90; PULSE 85; RESP 16; TEMP 36.6; O2SAT 97
[2023-02-03 09:30] LABS: Bedside Glucose 248 mg/dL (74-106)
--- NOTE | 2023-02-03 09:44 | CASEMGMT ---
Discharge Planning A list of SNF providers including quality and resource use data and consistent with the patient's preferred geographic region, medical needs, and insurance network was created in [employer].? This list was provided to the SW. Diana Hernandez Discharge Planning Asst.
--- NOTE | 2023-02-03 10:08 | PCM.PN.ID ---
Physical Exam Narrative Feeling ok, mild nausea, pain controlled, no fever Const alert and no apparent distress General Appearance: cooperative Resp normal air movement and clear to auscultation bilaterally Cardio regular rate and regular rhythm GI soft to palpation, non-tender and non-distended Skin Skin Narrative: foot wrapped ID ID: Route of nutrition/ use of supplements: [] Nutritional Intake: [] IV Site: [] Kelley Catheter: [] Assessment & Plan Assessment/Plan (1) Abscess of left foot: (2) Osteomyelitis of great toe of left foot: PLAN: Now s/p L TMA 02/01/[address] Moore. Cxs showing proteus, strep, MS-CoNS. On empiric vanc/zosyn. Will stop vanc today. Will follow (3) Neuropathy: (4) Diabetes mellitus, type 2: QUALIFIERS: Diabetes mellitus [facility] insulin use: without [facility] use Diabetes mellitus complication status: with neurologic complications Diabetes mellitus complication detail: with unspecified neuropathy Qualified Code(s): E11.40 - Type 2 diabetes mellitus with diabetic neuropathy, unspecified
--- NOTE | 2023-02-03 10:59 | CASEMGMT ---
Addendum entered by Kaitlin Jeffery 02/03/23 11:23: Social Work Jazlyn in TCU states they are in network. SW spoke w/pt, he would prefer TCU at this time. Jazlyn to let SW know if they can take him and if so will start precert. SW will let pt know as soon as Jazlyn lets this SW know if they can take pt. KING Santacruz Original Note: Social Work As per needle board repairer, pt wants to go somewhere for rehab. SW met w/pt in room, provided to pt a list of senior care facilities via [employer] in network w/pt's insurance, in pt's preferred geographic area, and complete w/quality and resource data. Pt would like 1. [facility] 2. [facility] and 3. [facility]. [facility] and [facility] are not listed as in network, SW explained will look into it and see if either [facility] or [facility] do take his insurance. SW called [facility], message left. SW also reached out to Jazlyn in TCU, she is going to look into whether or not they take pt's insurance. SUSAN will continue to follow. KING Santacruz
--- NOTE | 2023-02-03 10:59 | CASEMGMT ---
Discharge Planning Referral sent to [facility] and WC via [facility]. Diana Hernandez, Discharge Planning Asst.
[2023-02-03 12:24] LABS: Bedside Glucose 270 mg/dL (74-106)
[2023-02-03 13:27] VITALS: BP 124/71; PULSE 95; RESP 16; TEMP 37.1; O2SAT 100
--- NOTE | 2023-02-03 15:38 | CASEMGMT ---
Social Work Spoke with Jazlyn at [facility] TCU and patient can be accepted pending precert. Precert being started today. Updated Discharge planning assistance Diana, that referrals to [facility] and [facility] are no longer needed. PLAN: Short term skilled SNF, pending insurance precert. -PALLAVI Castillo
[2023-02-03 16:44] LABS: Bedside Glucose 218 mg/dL (74-106)
--- NOTE | 2023-02-03 17:36 | PCM.PN.HOSP ---
Reason for Visit Reason for Visit: Diagnoses Type 2 diabetes mellitus with diabetic neuropathy, unspecified (01/31/23) Morbid (severe) obesity due to excess calories (01/31/23) Obstructive sleep apnea (adult) (pediatric) (01/31/23) Polyneuropathy, unspecified (01/31/23) Essential (primary) hypertension (01/31/23) Pulmonary hypertension, unspecified (01/31/23) Chronic systolic (congestive) heart failure (01/31/23) Peripheral vascular disease, unspecified (01/31/23) Asymptomatic varicose veins of unspecified lower extremity (01/31/23) Cutaneous abscess of left foot (01/31/23) Cellulitis of left lower limb (01/31/23) Other acquired deformities of left foot (01/31/23) Osteomyelitis, unspecified (01/31/23) Objective Data Objective Data Vital Signs: Vital Signs Temp Pulse Resp BP Pulse Ox O2 Del Method 98.8 F 95 16 124/71 H 100 Room Air 02/03/23 13:27 02/03/23 13:27 02/03/23 13:27 02/03/23 13:27 02/03/23 13:27 02/03/23 13:27 Oxygen Delivery Method Room Air Weight: 289 lb 10.998 oz Body Mass Index (BMI) 44.0 Intake & Output: Intake and Output for Last 24 Hours 02/01/23 02/02/23 02/03/23 23:59 23:59 23:59 Intake Total 2254.0 / 2254.0 1965 / 2265 1760 / 1760 Output Total 201 / 201 2002 / 2352 800 / 800 Balance 2053.0 / 2053.0 -37 / -87 960 / 960 Lab / Micro Data 02/03/23 05:35 02/03/23 05:35 Labs: Laboratory Results - last 24 hr 02/02/23 17:40: POC Glucose 302 H 02/02/23 21:08: POC Glucose 277 H 02/03/23 05:35: WBC 10.9, RBC 4.19 L, Hgb 12.7 L, Hct 39.8 L, MCV 95.0 H, MCH 30.3, MCHC 31.9 L, RDW Std Deviation 43.2, RDW Coeff of Mechelle 12.4, Plt Count 369, MPV 9.1, Immature Gran % (Auto) 1.100 H, Neut % (Auto) 66.5, Lymph % (Auto) 22.3, [place] % (Auto) 8.4, Eos % (Auto) 1.1, Baso % (Auto) 0.6, Absolute Neuts (auto) 7.3, Absolute Lymphs (auto) 2.44, Nucleated RBC % 0, Sodium 137, Potassium 3.7, Chloride 108 H, Carbon Dioxide 24.0, Anion Gap 5, BUN 14, Creatinine 0.55 L, Estim Creat Clear Calc 155.45, Est GFR (MDRD) Af Amer 203, Est GFR (MDRD) Non-Af 168, BUN/Creatinine Ratio 25.5 H, Glucose 283 H, Calcium 8.2 L 02/03/23 08:31: POC Glucose 248 H 02/03/23 11:53: POC Glucose 270 H 02/03/23 16:08: POC Glucose 218 H Micro: Microbiology 02/01/23 Unknown Bone - Great Toe Gram Stain - Final 02/01/23 Unknown Bone - Great Toe Wound Culture - Preliminary Proteus hauseri Staphylococcus species Alpha Hemolytic Streptococcus 01/31/23 09:10 Wound Drainage - Toe Gram Stain - Final 01/31/23 09:10 Wound Drainage - Toe Wound Culture - Final Proteus hauseri Pseudomonas stutzeri Staphylococcus aureus 01/31/23 09:10 Wound Drainage - Toe Anaerobic Culture - Final No anaerobic bacteria isolated. 02/01/23 Unknown Wound Abcess - Left Foot Gram Stain - Final 02/01/23 Unknown Wound Abcess - Left Foot Wound Culture - Final Proteus hauseri Coag Negative Staph 02/01/23 Unknown Tissue - Left Foot Gram Stain - Final 02/01/23 Unknown Tissue - Left Foot Wound Culture - Final Proteus hauseri Streptococcus gallolyticus pas 02/01/23 Unknown Bone - Left Foot Gram Stain - Final 02/01/23 Unknown Bone - Left Foot Wound Culture - Final Proteus hauseri Streptococcus gallolyticus pas Staphylococcus xylosus 01/31/23 07:24 Blood Culture (Wb) - Anticubital Left Blood Culture - Preliminary No growth in 48 hours. 01/31/23 08:34 Blood Culture (Wb) - Right Hand Blood Culture - Preliminary No growth in 48 hours. 01/31/23 13:08 Urine, Clean Catch Urine Culture - Final Culture exhibits no growth. Physical Exam Narrative Seen and examined. Patient had abscess of left foot found to have osteomyelitis of great toe of left foot. Had transmetatarsal amputation by Dr. Moore on 02/01/2023. History of diabetes mellitus type 2. Physical exam General: Alert, Oriented x3, Cooperative HEENT: Atraumatic, PERRLA, EOMI, Normocephalic Oral: Oral mucosa moist. No Gingival or Mucosal Lesions/ Ulcerations Neck: Supple, No JVD, Negative Carotid Bruits Lungs: Air entry diminished in bilateral lung bases. No crepitation/rhonchi Cardiovascular: Regular rate, Regular Rhythm, Normal S1, Normal S2, No murmurs Abdomen: Bowel Sounds Present, Soft, Non Tender, Non-Distended : No renal angle tenderness. No suprapubic tenderness. Extremities: No edema, Capillary Refill Less than 3 Seconds Skin: Left TMA. Dressing is dry. Musculoskeletal: ROM restricted on the left ankle and foot. No Tenderness to Palpation of Joints or Extremities Neurological: Cranial nerves II-XII grossly intact, DTR 2+/4. No acute focal neurological deficit. Psych/Mental Status: Normal Affect, Appropriate. Assessment & Plan Assessment/Plan (1) Cellulitis of left foot: PLAN: Severe infection. Presented with subcutaneous emphysema as well as suspicion for osteomyelitis on his foot. Antibiotics with vancomycin and PIP Tazo Data MRI: showed extensive edema involving the great toe areas of ulceration cw extensive cellulitis and suble areas suspicious of soft tissue emphysema. Concerning for osteomyelitis involving distal phalanx of the great toe. Myositis ABIs within normal limits Culture on the 6 thus far showing gram-negative rods and Staphylococcus species. Cultures on the seventh currently pending Patient had left TMA on 02/01/[address] Moore.That included tendo Achilles lengthening of the left foot, transmetatarsal amputation of the left foot, incision and drainage of deep abscess with wide debridement of the left foot, sharp debridement to the level of the bone left foot, tissue rearrangement/advancement flap left foot. Cultures growing Proteus, strep, coagulase-negative staph. On empiric vancomycin and Zosyn. Vancomycin discontinued by ID. (2) Diabetes mellitus, type 2: QUALIFIERS: Diabetes mellitus half-way insulin use: without terminal superintendent use Diabetes mellitus complication status: with neurologic complications Diabetes mellitus complication detail: with unspecified neuropathy Qualified Code(s): E11.40 - Type 2 diabetes mellitus with diabetic neuropathy, unspecified PLAN: With neuropathy. Previously undiagnosed. Patient has been informed that he is diabetic and will require insulin upon discharge. He will require instructions about diet, checking his glucose as well as he will need to demonstrate administering insulin prior to him being discharged. a1c 11.4. Continue SSI. Start basal insulin 20 units BID. Add scheduled prandial insulin. Nutrition to advise on diet recommendations. Patient will also need instructions about administration of insulin prior to discharge. PLAN: Plan Chronic conditions HEATHER: Patient states that he is compliant with CPAP. Patient bring his CPAP in use. HFpEF: EF of 50% from 2D echocardiogram on September 02, 2013. Currently compensated. Hold off on the furosemide for now. Suspected diabetes mellitus type 2: Patient's glucose was in the 400s when he was here last week. Patient be on a diabetic diet as well as sliding scale insulin. Check an A1c. Obesity: BMI of 44 kg/m?. VTE prophylaxis with enoxaparin Disposition: Prior pending culture results and IDs final recommendations. Patient states that he is going to be staying with his mother as is at her home is currently handicapped accessible with ramps and other necessities. He does have some concerned about the medications. I did tell him that we would defer that to social work. Charges/Coding Visit Charges Inpatient E&M: 09346 Subs Hosp L2
--- NOTE | 2023-02-03 18:38 | PN_ITS ---
Subjective Subjective Patient was seen this afternoon resting in bed with left foot elevated. Dressings intact with posterior splint to left leg. Patient denies pain and states that he feels well overall. Patient states he has met with logistics assistant to discuss his diabetes. He states that physical therapy has also worked with him to remain nonweightbearing to the left lower extremity with assistance of walker. He states this is going pretty good overall. He denies constitutional symptoms. Denies further complaints. Objective Data Objective Data Vital Signs: Vital Signs Temp Pulse Resp BP Pulse Ox O2 Del Method 98.8 F 95 16 124/71 H 100 Room Air 02/03/23 13:27 02/03/23 13:27 02/03/23 13:27 02/03/23 13:27 02/03/23 13:27 02/03/23 13:27 Oxygen Delivery Method Room Air Weight: 131.4 kg Body Mass Index (BMI) 44.0 Intake & Output: Intake and Output for Last 24 Hours 02/01/23 02/02/23 02/03/23 23:59 23:59 23:59 Intake Total 2254.0 / 2254.0 1964 / 2265 1760 / 1760 Output Total 201 / 201 2001 / 2351 800 / 800 Balance 2053.0 / 2053.0 -37 / -87 960 / 960 Lab / Micro Data 02/03/23 05:35 02/03/23 05:35 Labs: Laboratory Results - last 24 hr 02/02/23 21:08: POC Glucose 277 H 02/03/23 05:35: WBC 10.9, RBC 4.19 L, Hgb 12.7 L, Hct 39.8 L, MCV 95.0 H, MCH 30.3, MCHC 31.9 L, RDW Std Deviation 43.2, RDW Coeff of Mechelle 12.4, Plt Count 369, MPV 9.1, Immature Gran % (Auto) 1.100 H, Neut % (Auto) 66.5, Lymph % (Auto) 22.3, [place] % (Auto) 8.4, Eos % (Auto) 1.1, Baso % (Auto) 0.6, Absolute Neuts (auto) 7.3, Absolute Lymphs (auto) 2.44, Nucleated RBC % 0, Sodium 137, Potassi um 3.7, Chloride 108 H, Carbon Dioxide 24.0, Anion Gap 5, BUN 14, Creatinine 0.55 L, Estim Creat Clear Calc 155.45, Est GFR (MDRD) Af Amer 203, Est GFR (M DRD) Non-Af 168, BUN/Creatinine Ratio 25.5 H, Glucose 283 H, Calcium 8.2 L 02/03/23 08:31: POC Glucose 248 H 02/03/23 11:53: POC Glucose 270 H 02/03/23 16:08: POC Glucose 218 H Micro: Microbiology 02/01/23 Unknown Bone - Great Toe Gram Stain - Final 02/01/23 Unknown Bone - Great Toe Wound Culture - Preliminary Proteus hauseri Staphylococcus species Alpha Hemolytic Streptococcus 01/31/23 09:10 Wound Drainage - Toe Gram Stain - Final 01/31/23 09:10 Wound Drainage - Toe Wound Culture - Final Proteus hauseri Pseudomonas stutzeri Staphylococcus aureus 01/31/23 09:10 Wound Drainage - Toe Anaerobic Culture - Final No anaerobic bacteria isolated. 02/01/23 Unknown Wound Abcess - Left Foot Gram Stain - Final 02/01/23 Unknown Wound Abcess - Left Foot Wound Culture - Final Proteus hauseri Coag Negative Staph 02/01/23 Unknown Tissue - Left Foot Gram Stain - Final 02/01/23 Unknown Tissue - Left Foot Wound Culture - Final Proteus hauseri Streptococcus gallolyticus pas 02/01/23 Unknown Bone - Left Foot Gram Stain - Final 02/01/23 Unknown Bone - Left Foot Wound Culture - Final Proteus hauseri Streptococcus gallolyticus pas Staphylococcus xylosus 01/31/23 07:24 Blood Culture (Wb) - Anticubital Left Blood Culture - Preliminary No growth in 48 hours. 01/31/23 08:34 Blood Culture (Wb) - Right Hand Blood Culture - Preliminary No growth in 48 hours. 01/31/23 13:08 Urine, Clean Catch Urine Culture - Final Culture exhibits no growth. Physical Exam Const alert, oriented x3, no apparent distress and well nourished General Appearance: cooperative Nutritional Appearance: morbidly obese HEENT normocephalic Eyes General Eye: normal appearance of both eyes Neck General: normal visual inspection Lymph Lymphatic: no lymphadenopathy noted and no lymphedema noted Resp normal respiratory effort Cardio regular rate and regular rhythm Extremity no calf tenderness Extremity Narrative: DP and PT pulses palpable bilateral. Capillary fill time to the digits less hannah n 5 seconds bilateral. Dermatological: Transmetatarsal amputation of the left foot with intact sutures at the distal stump and intact sutures posterior overlying the Achilles tendon. No signs of infection. Erythema overlying forefoot decreasing. No purulent drainage noted. Skin flap appears healthy and pink in coloration with excellent viability. Musculoskeletal: Muscle strength 5 of 5 age-appropriate. There is decreased range of motion of the ankle joint in dorsiflexion with the knee extended without pain or crepitus. There is component of equinus noted bilateral. Transmetatarsal amputation left foot with intact sutures. Skin no rashes or lesions noted, skin turgor normal and no jaundice Neuro oriented x3 and moves all extremities Assessment & Plan Assessment/Plan (1) Osteomyelitis of great toe of left foot: (2) Cellulitis of left foot: (3) Abscess of left foot: (4) Equinus deformity of left foot: (5) Diabetes mellitus, type 2: QUALIFIERS: Diabetes mellitus complication detail: with unspecified neuropathy Diabetes mellitus complication status: with neurologic complications Diabetes mellitus long term care pharmacist insulin use: without nursing home use Qualified Code(s): E11.40 - Type 2 diabetes mellitus with diabetic neuropathy, unspecified PLAN: Plan Patient seen and evaluated He is s/p tendo Achilles lengthening of the left foot, transmetatarsal amputation of the left foot, incision and drainage with wide debridement, sharp debridement to the level of bone, and tissue advancement flap of the left foot. DOS: 02/01/2023. POD #2 Transmetatarsal amputation noted to the left foot. Sutures intact at distal stump. Skin flap demonstrates healthy viability and is pink in color. There is resolving erythema noted to the left foot post surgery. 1 g of vancomycin powder was placed at the amputation site prior to closure. Presurgical labs: WBC 18.5, ESR 31, CRP 119, lactic acid 2.3 (down from 2.7); WBC has decreased to 10.6 today. Blood culture obtained and negative for growth Wound culture obtained demonstrating Proteus and alphahemolytic strep. Staph aureus protein A PCR positive MRSA PCR negative Currently on IV Vanco/Zosyn Surgical cultures: Tissue and abscess demonstrates Proteus hauseri, Streptococcus gallolyticus pas. Bone demonstrates Proteus hauseri, Streptococcu s gallolyticus pas, Staphylococcus xylosus. LEAS performed 01/31/2023 demonstrating right ankle YUE PT 143, indices 1.27; DP 144, indices 1.22; triphasic PT and DP pulses right leg; left leg demonstrates ankle PT 136, indices 1.20; DP 131, indices 1.16; triphasic PT and DP pulses left leg. No evidence of occlusive arterial disease. Imaging: Radiograph left foot demonstrates diffuse soft tissue swelling and subcutaneous soft tissue emphysema particularly over the distal phalanx of the great toe. MRI performed 04/02/2022 demonstrates decreased T1 signal of the distal phalanx and proximal phalanx of the hallux with corresponding increased T2 signal of the distal phalanx and proximal phalanx of the hallux consistent with osteomyelitis. There is evidence of soft tissue emphysema about the hallux and significant soft tissue swelling of the hallux and forefoot of the left foot. There is a fluid collection within musculature overlying the plantar first metatarsal. Postsurgical radiographs 02/01/2023 demonstrate transmetatarsal amputation of the left foot. Dressings: Betadine soaked Adaptic to incision sites, 4 x 4 gauze, ABD, Kerlix x2, 4 inch Tres wrap and 6 inch Tres wrap. Posterior splint applied to left lower extremity and anchored with a 4 inch Tres wrap and 6 inch Tres wrap. Patient is newly diagnosed diabetic with A1c 11.4% Discussed proper diabetic diet and foods to avoid. Discussed with him need to see logistics assistant to aid in his diet modification. Encouraged active lifestyle modification to not only improve blood sugar/A1c but to aid in weight loss as patient is morbidly obese. Discussed checking feet daily given history of wounds diabetes. Discussed with patient the need to follow-up sooner for foot care. Patient to remain nonweightbearing to the left foot with assistance of a walker. He is to continue elevating left foot at all times of rest for postoperative e mitchell control. Medicine team currently following for medical management, they are greatly appreciated Infectious disease consulted for antibiotic management, management is appreciated. Wound nurse following for assistance of dressing changes, assistance is appreciated. Podiatry will continue to follow while in house. Currently anticipating discharge home, likely Tuesday versus discharge to transitional care unit. Patient will continue to follow in office for postoperative care if discharged home; will see in TCU if he goes over there. Jr. Deja Estes.P.M. [facility] [phone]
[2023-02-03 21:57] VITALS: BP 127/76; PULSE 90; RESP 16; TEMP 36.8; O2SAT 98
[2023-02-03 22:02] VITALS: BP 127/76; PULSE 90
[2023-02-03] MEDS: Insulin Glargine-YFGN 100 UNIT/ML Pen 28 UNIT SC (22:19)
[2023-02-03 23:02] LABS: Bedside Glucose 259 mg/dL (74-106)
[2023-02-04 03:28] VITALS: BP 120/73; PULSE 80; RESP 16; TEMP 36.6; O2SAT 99
[2023-02-04] MEDS: Piperacil/Tazobactam 3.375 GM in 0.9% Normal Saline (50mL MB+) 50 ML IV (06:47)
[2023-02-04 07:28] LABS: Bedside Glucose 244 mg/dL (74-106)
[2023-02-04 08:30] VITALS: BP 137/75; PULSE 81; RESP 18; TEMP 36.6; O2SAT 99
[2023-02-04 08:35] VITALS: O2SAT 99
[2023-02-04 08:37] VITALS: BP 137/75; PULSE 81
[2023-02-04] MEDS: Juven (unflavored) Packet 1 PACKET PO ×2 (08:37→16:56)
[2023-02-04] MEDS: Metoprolol Tartrate 100 MG Tablet 150 MG PO (08:37)
[2023-02-04] MEDS: dilTIAZem CD 120 MG Capsule PO (08:37)
[2023-02-04] MEDS: Insulin Lispro 100 UNIT/ML INSULN.PEN SC ×3 (08:38→16:55)
[2023-02-04] MEDS: Insulin Glargine-YFGN 100 UNIT/ML Pen 28 UNIT SC (08:38)
[2023-02-04] MEDS: Lisinopril 10 MG Tablet PO (08:38)
[2023-02-04] MEDS: Enoxaparin 40 MG/0.4 ML Syringe SC (08:38)
[2023-02-04] MEDS: Insulin Lispro 100 UNIT/ML INSULN.PEN 15 UNIT SC ×3 (08:39→16:55)
--- NOTE | 2023-02-04 10:35 | PCM.TXEXTCAR ---
Diet Diet Order/Speech Therapy: 02/01/23 17:22 Diet: Consistent Carb - Calorie Controlled Dietary Modifications:: Cardiac / Heart Healthy Sodium Restricted How many daily calories?: 2000 calorie Routine Orders/Code Status Suppository Type: Dulcolax 10mg Suppository Frequency: Daily PRN Routine Lab Work: CBC (Weekly.) and BMP Code Status: Full Code Wound(s) LEFT FOOT: Wound Type: Surgical Incision Dressing Change: betadine Adaptic Therapies Weight Bearing: Non weight bearing (With assistance of a walker as recommended by television engineering teacher) Extremity Affected:: Bilateral Lower Physical Therapy: Eval and Treat Occupational Therapy: Eval and Treat Problem/Diagnosis (1) Osteomyelitis of great toe of left foot: Status: Acute Code(s): M86.9 - Osteomyelitis, unspecified (2) Cellulitis of left foot: Status: Acute Code(s): L03.116 - Cellulitis of left lower limb Plan: Severe infection. Presented with subcutaneous emphysema as well as suspicion for osteomyelitis on his foot. Antibiotics with vancomycin and PIP Tazo Data MRI: showed extensive edema involving the great toe areas of ulceration cw extensive cellulitis and suble areas suspicious of soft tissue emphysema. Concerning for osteomyelitis involving distal phalanx of the great toe. Myositis ABIs within normal limits Culture on the 6 thus far showing gram-negative rods and Staphylococcus species. Cultures on the seventh currently pending Patient had left TMA on 02/01/[address] Moore[address]That included tendo Achilles lengthening of the left foot, transmetatarsal amputation of the left foot, incision and drainage of deep abscess with wide debridement of the left foot, sharp debridement to the level of the bone left foot, tissue rearrangement/advancement flap left foot. Cultures growing Proteus, strep, coagulase-negative staph. On empiric vancomycin and Zosyn. Vancomycin discontinued by ID. (3) Abscess of left foot: Status: Acute Code(s): L02.612 - Cutaneous abscess of left foot (4) Equinus deformity of left foot: Status: Acute Code(s): M21.6X2 - Other acquired deformities of left foot (5) Diabetes mellitus, type 2: Status: Acute Code(s): E11.9 - Type 2 diabetes mellitus without complications Plan: With neuropathy. Previously undiagnosed. Patient has been informed that he is diabetic and will require insulin upon discharge. He will require instructions about diet, checking his glucose as well as he will need to demonstrate administering insulin prior to him being discharged. a1c 11.4. Continue SSI. Start basal insulin 20 units BID. Add scheduled prandial insulin. Nutrition to advise on diet recommendations. Patient will also need instructions about administration of insulin prior to discharge. Plan Chronic conditions HEATHER: Patient states that he is compliant with CPAP. Patient bring his CPAP in use. HFpEF: EF of 50% from 2D echocardiogram on September 02, 2013. Currently compensated. Hold off on the furosemide for now. Suspected diabetes mellitus type 2: Patient's glucose was in the 400s when he was here last week. Patient be on a diabetic diet as well as sliding scale insulin. Check an A1c. Obesity: BMI of 44 kg/m?. VTE prophylaxis with enoxaparin Disposition: Prior pending culture results and IDs final recommendations. Patient states that he is going to be staying with his mother as is at her home is currently handicapped accessible with ramps and other necessities. He does have some concerned about the medications. I did tell him that we would defer that to social work. Allergies/Procedures Done in Hospital Allergies No Known Allergies Allergy (Verified 01/31/23 06:37) Type of Care/Length of Stay Estimated LOS: Convalescent Care Less Than 30 days Type of Care Needed: Skilled Rehab Potential: Good Prognosis: Good Additional Orders/Day of Discharge Day of Discharge: 02/04/23 Dietary and Speech Recommendations Dietitian Recommendations/Changes: Continue 2000 calorie/consistent carbohydrate; cardiac/sodium-restricted. Fluid restriction as needed per physician. Continue Andrews BID w/ medpass to support wound healing. Discharge Plan Admission Admit Date/Time: 01/31/23 09:22 Primary Reason for Your Visit: Osteomyelitis of left great toe, cellulitis with abscess. Status post TMA. Attending Provider: José Miguel Beltran Primary Care Provider: Care Physician,No Primary Consulting Providers: Jay Moore; Noe Kwok; Mario Mathews Discharge Orders/Prescriptions Prescriptions: New amoxicillin-pot clavulanate 875-125 mg tablet 1 tab PO BID Qty: 14 0RF acetaminophen 325 mg Tablet 650 mg PO Q6H PRN PRN (Reason: Pain 1-10 Or Fever >100.7) Qty: 0 0RF oxycodone 5 mg Tablet 2.5 - 5 mg PO Q4H PRN PRN (Reason: Pain Score 4-10) Qty: 0 0RF Rx Instructions: 2.5 mg for moderate pain and 5 mg for severe pain respectively. insulin lispro [Humalog KwikPen Insulin] 100 unit/mL Insulin Pen 22 unit subcut TIDAC Qty: 0 0RF Rx Instructions: Hold if glucose less than 130 mg/dl insulin lispro [Humalog KwikPen Insulin] 100 unit/mL Insulin Pen See Protocol subcut ACHS Qty: 0 0RF Protocol: 3. Sliding Scale Insulin Med Dosing Condition: 150-189 mg/dl = 1 unit Condition: 190-229 mg/dl = 2 units Condition: 230-269 mg/dl = 3 units Condition: 270-309 mg/dl = 4 units Condition: 310-349 mg/dl = 5 units Condition: 350-399 mg/dl = 6 units Condition: 400-449 mg/dl = 7 units Condition: Greater than 449 call physician Protocol Text: - Use for Total Daily Dose of Insulin 37-55 units - Obsese, infected, or steroid patients MEDIUM DOSING ALGORITHIM Andrews (with collagen) 7-7-1.5 gram Powder In Packet 1 packet PO BIDCM Qty: 0 0RF insulin glargine-yfgn 100 unit/mL (3 mL) Insulin Pen 35 unit subcut BID Qty: 0 0RF Rx Instructions: Hold if glucose less than 130 mg/dl Eliquis 2.5 mg tablet 2.5 mg PO BID Qty: 60 0RF Rx Instructions: For 30 days after surgery. Continued diltiazem HCl [Cardizem CD] 120 mg capsule,extended release 24hr 120 mg PO BID Qty: 180 3RF furosemide 40 mg tablet 40 mg PO BID Qty: 180 3RF Patient Comments: WATER PILL lisinopril 10 mg tablet 10 mg PO BID Qty: 180 3RF metoprolol tartrate 100 mg tablet 150 mg PO BID Qty: 270 3RF Held aspirin 81 MG tablet,chewable 81 mg PO DAILY@0800 Qty: 90 4RF Hold Instructions: Hold while taking low-dose Eliquis. Patient Comments: [facility] Referrals / Follow Up: Care Physician,No Primary [Primary Care Provider] - Disposition Disposition (needs filled in before D/C Order can be placed): [facility] (5) Diabetes mellitus, type 2 Qualifiers: Diabetes mellitus complication detail: with unspecified neuropathy Diabetes mellitus complication status: with neurologic complications Diabetes mellitus correction insulin use: without correction use Qualified Code(s): E11.40 - Type 2 diabetes mellitus with diabetic neuropathy, unspecified
[2023-02-04 11:45] LABS: Bedside Glucose 235 mg/dL (74-106)
--- NOTE | 2023-02-04 13:22 | PN_ITS ---
Subjective Subjective Patient was seen this afternoon resting in bed with left foot elevated. Dressings intact with posterior splint to left leg. Patient denies pain and states that he feels well overall. He is discussing going to transitional care unit for continued care postdischarge. He denies constitutional symptoms. Denies further complaints. Objective Data Objective Data Vital Signs: Vital Signs Temp Pulse Resp BP Pulse Ox O2 Del Method 97.8 F 81 18 137/75 H 99 Room Air 02/04/23 08:30 02/04/23 08:37 02/04/23 08:30 02/04/23 08:37 02/04/23 08:35 02/04/23 08:35 Oxygen Delivery Method Room Air Weight: 131.4 kg Body Mass Index (BMI) 44.0 Intake & Output: Intake and Output for Last 24 Hours 02/02/23 02/03/23 02/04/23 23:59 23:59 23:59 Intake Total 1964 / 2264 2040 / 204 580 / 580 Output Total 2001 800 / 800 2100 / 2099 Balance -37 / -87 1240 / 1240 -1520 / -1520 Lab / Micro Data 02/03/23 05:35 02/03/23 05:35 Labs: Laboratory Results - last 24 hr 02/03/23 16:08: POC Glucose 218 H 02/03/23 22:17: POC Glucose 259 H 02/04/23 06:57: POC Glucose 244 H 02/04/23 11:23: POC Glucose 235 H Micro: Microbiology 02/01/23 Unknown Tissue - Left Foot Gram Stain - Final 02/01/23 Unknown Tissue - Left Foot Wound Culture - Final Proteus hauseri Streptococcus gallolyticus pas 02/01/23 Unknown Tissue - Left Foot Anaerobic Culture - Preliminary Checking for anaerobes, further studies to follow. 02/01/23 Unknown Bone - Left Foot Gram Stain - Final 02/01/23 Unknown Bone - Left Foot Wound Culture - Final Proteus hauseri Streptococcus gallolyticus pas Staphylococcus xylosus 02/01/23 Unknown Bone - Left Foot Anaerobic Culture - Preliminary Checking for anaerobes, further studies to follow. 02/01/23 Unknown Bone - Great Toe Gram Stain - Final 02/01/23 Unknown Bone - Great Toe Wound Culture - Final Proteus hauseri Staphylococcus aureus Streptococcus gallolyticus pas 02/01/23 Unknown Bone - Great Toe Anaerobic Culture - Preliminary Checking for anaerobes, further studies to follow. 02/01/23 Unknown Wound Abcess - Left Foot Gram Stain - Final 02/01/23 Unknown Wound Abcess - Left Foot Wound Culture - Final Proteus hauseri Coag Negative Staph 02/01/23 Unknown Wound Abcess - Left Foot Anaerobic Culture - Preliminary Checking for anaerobes, further studies to follow. 01/31/23 09:10 Wound Drainage - Toe Gram Stain - Final 01/31/23 09:10 Wound Drainage - Toe Wound Culture - Final Proteus hauseri Pseudomonas stutzeri Staphylococcus aureus 01/31/23 09:10 Wound Drainage - Toe Anaerobic Culture - Final No anaerobic bacteria isolated. 01/31/23 07:24 Blood Culture (Wb) - Anticubital Left Blood Culture - Preliminary No growth in 48 hours. 01/31/23 08:34 Blood Culture (Wb) - Right Hand Blood Culture - Preliminary No growth in 48 hours. 01/31/23 13:08 Urine, Clean Catch Urine Culture - Final Culture exhibits no growth. Physical Exam Const alert, oriented x3, no apparent distress and well nourished General Appearance: cooperative Nutritional Appearance: morbidly obese HEENT normocephalic Eyes General Eye: normal appearance of both eyes Neck General: normal visual inspection Lymph Lymphatic: no lymphadenopathy noted and no lymphedema noted Resp normal respiratory effort Cardio regular rate and regular rhythm Extremity no calf tenderness Extremity Narrative: DP and PT pulses palpable bilateral. Capillary fill time to the digits less than 5 seconds bilateral. Dermatological: Transmetatarsal amputation of the left foot with intact sutures at the distal stump and intact sutures posterior overlying the Achilles tendon. No signs of infection. Erythema overlying forefoot decreasing. No purulent drainage noted. Skin flap appears healthy and pink in coloration with excellent viability. Musculoskeletal: Muscle strength 5 of 5 age-appropriate. There is decreased range of motion of the ankle joint in dorsiflexion with the knee extended without pain or crepitus. There is component of equinus noted bilateral. Transmetatarsal amputation left foot with intact sutures. Skin no rashes or lesions noted, skin turgor normal and no jaundice Neuro oriented x3 and moves all extremities Assessment & Plan Assessment/Plan (1) Osteomyelitis of great toe of left foot: (2) Cellulitis of left foot: (3) Abscess of left foot: (4) Equinus deformity of left foot: (5) Diabetes mellitus, type 2: QUALIFIERS: Diabetes mellitus terminal makeup operator insulin use: without terminal makeup operator use Diabetes mellitus complication status: with neurologic complications Diabetes mellitus complication detail: with unspecified neuropathy Qualified Code(s): E11.40 - Type 2 diabetes mellitus with diabetic neuropathy, unspecified PLAN: Plan Patient seen and evaluated He is s/p tendo Achilles lengthening of the left foot, transmetatarsal amputation of the left foot, incision and drainage with wide debridement, sharp debridement to the level of bone, and tissue advancement flap of the left foot. DOS: 02/01/2023. POD #3 Transmetatarsal amputation noted to the left foot. Sutures intact at distal stump. Skin flap demonstrates healthy viability and is pink in color. There is resolving erythema noted to the left foot post surgery. 1 g of vancomycin powder was placed at the amputation site prior to closure. Presurgical labs: WBC 18.5, ESR 31, CRP 119, lactic acid 2.3 (down from 2.7); WBC has decreased to 10.6. Blood culture obtained and negative for growth Wound culture obtained demonstrating Proteus and alphahemolytic strep. Staph aureus protein A PCR positive MRSA PCR negative Currently on IV Vanco/Zosyn Surgical cultures: Tissue and abscess demonstrates Proteus hauseri, Streptococcus gallolyticus pas. Bone demonstrates Proteus hauseri, Streptococcus gallolyticus pas, Staphylococcus xylosus. LEAS performed 01/31/2023 demonstrating right ankle YUE PT 143, indices 1.27; DP 144, indices 1.22; triphasic PT and DP pulses right leg; left leg demonstrates ankle PT 136, indices 1.20; DP 131, indices 1.16; triphasic PT and DP pulses left leg. No evidence of occlusive arterial disease. Imaging: Radiograph left foot demonstrates diffuse soft tissue swelling and subcutaneous soft tissue emphysema particularly over the distal phalanx of the great toe. MRI performed 04/02/2022 demonstrates decreased T1 signal of the distal phalanx and proximal phalanx of the hallux with corresponding increased T2 signal of the distal phalanx and proximal phalanx of the hallux consistent with osteomyelitis. There is evidence of soft tissue emphysema about the hallux and significant soft tissue swelling of the hallux and forefoot of the left foot. There is a fluid collection within musculature overlying the plantar first metatarsal. Postsurgical radiographs 02/01/2023 demonstrate transmetatarsal amputation of the left foot. Dressings: Betadine soaked Adaptic to incision sites, 4 x 4 gauze, ABD, Kerlix x2, 4 inch Tres wrap and 6 inch Tres wrap. Posterior splint applied to left lower extremity and anchored with a 4 inch Tres wrap and 6 inch Tres wrap. Patient is newly diagnosed diabetic with A1c 11.4% Discussed proper diabetic diet and foods to avoid. Discussed with him need to see clinical research physician to aid in his diet modification. Encouraged active lifestyle modification to not only improve blood sugar/A1c but to aid in weight loss as patient is morbidly obese. Discussed checking feet daily given history of wounds diabetes. Discussed with patient the need to follow-up sooner for foot care. Patient to remain nonweightbearing to the left foot with assistance of a walker. He is to continue elevating left foot at all times of rest for postoperative edema control. Medicine team currently following for medical management, they are greatly appreciated Infectious disease consulted for antibiotic management, management is appreciated. Wound nurse following for assistance of dressing changes, assistance is apprec iated. Currently prognosis is good with healthy appearing amputation stump. Patient does state he feels better each day. Podiatry will continue to follow while in house. Currently anticipating dis charge home, likely weekend versus discharge to transitional care unit. Patient discussing option of transitional care unit with social work. Patient will continue to follow in office for postoperative care if discharged home; will see in TCU if he goes over there. Jr. Deja Estes.P.M. [facility] [phone]
--- NOTE | 2023-02-04 13:46 | PCM.DC.SUM ---
Providers Date of Admission: 01/31/23 Date of Discharge: 02/04/23 Primary Care Physician: Charmaine Primary Care Phys Consultations 01/31/23 10:03 Consult: Onc/Wound/senior tax manager Routine Comment: Consult: Podiatry Routine Consulting Provider: Jay Moore Reason for Consult: left foot infection EMERGENT Consult: No Notified: Yes Date Notified: 01/31/23 Time Notified: 09:26 Method of Notification: ED Physician Initiated 02/01/23 13:55 Consult: Infectious Disease Routine Consulting Provider: Noe Kwok Reason for Consult: DM Left foot infection with Osteomyelitis and Abscess. EMERGENT Consult: No Notified: Yes Date Notified: 02/01/23 Time Notified: 13:51 Method of Notification: Text Reason For Visit: LEFT FOOT INFECTION Diagnosis Discharge Diagnosis (1) Osteomyelitis of great toe of left foot: Status: Acute Code(s): M86.9 - Osteomyelitis, unspecified (2) Cellulitis of left foot: Status: Acute Code(s): L03.116 - Cellulitis of left lower limb Plan: Severe infection. Presented with subcutaneous emphysema as well as suspicion for osteomyelitis on his foot. Antibiotics with vancomycin and PIP Tazo Data MRI: showed extensive edema involving the great toe areas of ulceration cw extensive cellulitis and suble areas suspicious of soft tissue emphysema. Concerning for osteomyelitis involving distal phalanx of the great toe. Myositis ABIs within normal limits with triphasic Doppler waveforms at ankle levels bilaterally. Reported no evidence of significant arterial occlusive disease in lower extremities bilaterally. Culture on the 6 thus far showing gram-negative rods and Staphylococcus species. Cultures on the seventh currently pending Patient had left TMA on 02/01/[address] Moore[address]That included tendo Achilles lengthening of the left foot, transmetatarsal amputation of the left foot, incision and drainage of deep abscess with wide debridement of the left foot, sharp debridement to the level of the bone left foot, tissue rearrangement/advancement flap left foot. Cultures growing Proteus, strep, coagulase-negative staph. On empiric vancomycin and Zosyn. Vancomycin discontinued by ID. 02/04: Patient was seen by ID. Discussed with Dr. Kwok. Patient is discharged on 7 more days of Augmentin. Eliquis 2.5 mg twice daily for DVT prophylaxis. Hold baby aspirin while taking Eliquis. (3) Abscess of left foot: Status: Acute Code(s): L02.612 - Cutaneous abscess of left foot (4) Equinus deformity of left foot: Status: Acute Code(s): M21.6X2 - Other acquired deformities of left foot (5) Diabetes mellitus, type 2: Status: Acute Code(s): E11.9 - Type 2 diabetes mellitus without complications Qualifiers: Diabetes mellitus complication detail: with unspecified neuropathy Diabetes mellitus complication status: with neurologic complications Diabetes mellitus bed bug exterminator insulin use: without bed bug exterminator use Qualified Code(s): E11.40 - Type 2 diabetes mellitus with diabetic neuropathy, unspecified Plan: With neuropathy. Previously undiagnosed. Patient has been informed that he is diabetic and will require insulin upon discharge. He will require instructions about diet, checking his glucose as well as he will need to demonstrate administering insulin prior to him being discharged. a1c 11.4. Continue SSI. Start basal insulin 20 units BID. Add scheduled prandial insulin. Nutrition to advise on diet recommendations. Patient will also need instructions about administration of insulin prior to discharge. 02/04: Blood sugars are high. Humalog and Lantus insulin dose increased. Continue Accu-Cheks with coverage of Humalog as per sliding scale Plan Chronic conditions HEATHER: Patient states that he is compliant with CPAP. Patient bring his CPAP in use. HFpEF: EF of 50% from 2D echocardiogram on September 02, 2013. Currently compensated. Hold off on the furosemide for now. Suspected diabetes mellitus type 2: Patient's glucose was in the 400s when he was here last week. Patient be on a diabetic diet as well as sliding scale insulin. Check an A1c. Obesity: BMI of 44 kg/m?. VTE prophylaxis with enoxaparin Patient is being discharged to TCU. Podiatry will follow there. Discharge medication reconciliation done. Discharge follow-up instructions completed. Discharge process discussed with the patient and all questions were answered to patient's satisfaction. Follow with PCP in 1 to 2 weeks Total time spent, exact 35 minutes on discharge meds reconciliation, examination, coordination of care with nurses and ancillary staff, review of imaging and blood test and discussion with the patient on follow-up instructions. Medications at Discharge Home Medications aspirin 81 mg chewable tablet 81 mg PO DAILY@0800 ##90 10/10/13 diltiazem HCl 120 mg capsule,extended release 24 hr (Cardizem CD) 120 mg PO BID #180 caps 10/15/22 furosemide 40 mg tablet 40 mg PO BID #180 tabs 10/15/22 lisinopril 10 mg tablet 10 mg PO BID #180 tabs 10/15/22 metoprolol tartrate 100 mg tablet 150 mg (1.5 x 100 mg) PO BID #270 tabs 10/15/22 acetaminophen 325 mg tablet 650 mg (2 x 325 mg) PO Q6H PRN PRN Pain 1-10 Or Fever >100.7 #0 tabs 02/04/23 amoxicillin 875 mg-potassium clavulanate 125 mg tablet 1 tab PO BID #14 tabs 02/04/23 apixaban 2.5 mg tablet (Eliquis) 2.5 mg PO BID #60 tabs 02/04/23 arginine 7 gram-glutam 7 gram-CaHMB 1.5 hedt-idjmt-ob-min oral pwd pkt (Andrews (with collagen)) 1 packet PO BIDCM #0 ea 02/04/23 insulin glargine-yfgn 100 unit/mL (3 mL) subcutaneous pen 35 unit (0.35 mL) subcut BID #0 mL 02/04/23 insulin lispro 100 unit/mL subcutaneous pen (Humalog KwikPen (U-100) Insulin) 22 unit (0.22 mL) subcut TIDAC #0 mL 02/04/23 insulin lispro 100 unit/mL subcutaneous pen (Humalog KwikPen (U-100) Insulin) See Protocol subcut ACHS #0 mL 02/04/23 oxycodone 5 mg tablet 2.5 - 5 mg (0.5 - 1 x 5 mg) PO Q4H PRN PRN Pain Score 4-10 #0 tabs 02/04/23 Physical Exam Narrative Seen and examined. No fever. Blood sugar high. Otherwise patient doing well. Had bowel movement. Patient had abscess of left foot found to have osteomyelitis of great toe of left foot. Had transmetatarsal amputation by Dr. Moore on 02/01/2023. History of diabetes mellitus type 2. Physical exam General: Alert, Oriented x3, Cooperative HEENT: Atraumatic, PERRLA, EOMI, Normocephalic Oral: Oral mucosa moist. No Gingival or Mucosal Lesions/ Ulcerations Neck: Supple, No JVD, Negative Carotid Bruits Lungs: Air entry diminished in bilateral lung bases. No crepitation/rhonchi Cardiovascular: Regular rate, Regular Rhythm, Normal S1, Normal S2, No murmurs Abdomen: Bowel Sounds Present, Soft, Non Tender, Non-Distended : No renal angle tenderness. No suprapubic tenderness. Extremities: No edema, Capillary Refill Less than 3 Seconds Skin: Left TMA. Dressing is dry. Musculoskeletal: ROM restricted on the left ankle and foot. No Tenderness to Palpation of Joints or Extremities Neurological: Cranial nerves II-XII grossly intact, DTR 2+/4. No acute focal neurological deficit. Psych/Mental Status: Normal Affect, Appropriate. Weight / BMI Weight Weight: 289 lb 10.998 oz Body Mass Index (BMI) 44.0 ABG / Lab / Microbiology Data 02/03/23 05:35 02/03/23 05:35 Laboratory: Laboratory Results - last 24 hr 02/03/23 16:08: POC Glucose 218 H 02/03/23 22:17: POC Glucose 259 H 02/04/23 06:57: POC Glucose 244 H 02/04/23 11:23: POC Glucose 235 H Microbiology: Microbiology 02/01/23 Unknown Tissue - Left Foot Gram Stain - Final 02/01/23 Unknown Tissue - Left Foot Wound Culture - Final Proteus hauseri Streptococcus gallolyticus pas 02/01/23 Unknown Tissue - Left Foot Anaerobic Culture - Preliminary Checking for anaerobes, further studies to follow. 02/01/23 Unknown Bone - Left Foot Gram Stain - Final 02/01/23 Unknown Bone - Left Foot Wound Culture - Final Proteus hauseri Streptococcus gallolyticus pas Staphylococcus xylosus 02/01/23 Unknown Bone - Left Foot Anaerobic Culture - Preliminary Checking for anaerobes, further studies to follow. 02/01/23 Unknown Bone - Great Toe Gram Stain - Final 02/01/23 Unknown Bone - Great Toe Wound Culture - Final Proteus hauseri Staphylococcus aureus Streptococcus gallolyticus pas 02/01/23 Unknown Bone - Great Toe Anaerobic Culture - Preliminary Checking for anaerobes, further studies to follow. 02/01/23 Unknown Wound Abcess - Left Foot Gram Stain - Final 02/01/23 Unknown Wound Abcess - Left Foot Wound Culture - Final Proteus hauseri Coag Negative Staph 02/01/23 Unknown Wound Abcess - Left Foot Anaerobic Culture - Preliminary Checking for anaerobes, further studies to follow. 01/31/23 09:10 Wound Drainage - Toe Gram Stain - Final 01/31/23 09:10 Wound Drainage - Toe Wound Culture - Final Proteus hauseri Pseudomonas stutzeri Staphylococcus aureus 01/31/23 09:10 Wound Drainage - Toe Anaerobic Culture - Final No anaerobic bacteria isolated. 01/31/23 07:24 Blood Culture (Wb) - Anticubital Left Blood Culture - Preliminary No growth in 48 hours. 01/31/23 08:34 Blood Culture (Wb) - Right Hand Blood Culture - Preliminary No growth in 48 hours. 01/31/23 13:08 Urine, Clean Catch Urine Culture - Final Culture exhibits no growth. Meaningful Use Info Meaningful Use Diagnoses (Choose all that apply): None applicable Discharge Plan Admission Admit Date/Time: 01/31/23 09:22 Primary Reason for Your Visit: Osteomyelitis of left great toe, cellulitis with abscess. Status post TMA. Attending Provider: José Miguel Beltran Primary Care Provider: Care Physician,No Primary Consulting Providers: Jay Moore; Noe Kwok; Mario Mathews Discharge Orders/Prescriptions Prescriptions: New amoxicillin-pot clavulanate 875-125 mg tablet 1 tab PO BID Qty: 14 0RF acetaminophen 325 mg Tablet 650 mg PO Q6H PRN PRN (Reason: Pain 1-10 Or Fever >100.7) Qty: 0 0RF oxycodone 5 mg Tablet 2.5 - 5 mg PO Q4H PRN PRN (Reason: Pain Score 4-10) Qty: 0 0RF Rx Instructions: 2.5 mg for moderate pain and 5 mg for severe pain respectively. insulin lispro [Humalog KwikPen Insulin] 100 unit/mL Insulin Pen 22 unit subcut TIDAC Qty: 0 0RF Rx Instructions: Hold if glucose less than 130 mg/dl insulin lispro [Humalog KwikPen Insulin] 100 unit/mL Insulin Pen See Protocol subcut ACHS Qty: 0 0RF Protocol: 3. Sliding Scale Insulin Med Dosing Condition: 150-189 mg/dl = 1 unit Condition: 190-229 mg/dl = 2 units Condition: 230-269 mg/dl = 3 units Condition: 270-309 mg/dl = 4 units Condition: 310-349 mg/dl = 5 units Condition: 350-399 mg/dl = 6 units Condition: 400-449 mg/dl = 7 units Condition: Greater than 449 call physician Protocol Text: - Use for Total Daily Dose of Insulin 37-55 units - Obsese, infected, or steroid patients MEDIUM DOSING ALGORITHIM Andrews (with collagen) 7-7-1.5 gram Powder In Packet 1 packet PO BIDCM Qty: 0 0RF insulin glargine-yfgn 100 unit/mL (3 mL) Insulin Pen 35 unit subcut BID Qty: 0 0RF Rx Instructions: Hold if glucose less than 130 mg/dl Eliquis 2.5 mg tablet 2.5 mg PO BID Qty: 60 0RF Rx Instructions: For 30 days after surgery. Continued diltiazem HCl [Cardizem CD] 120 mg capsule,extended release 24hr 120 mg PO BID Qty: 180 3RF furosemide 40 mg tablet 40 mg PO BID Qty: 180 3RF Patient Comments: WATER PILL lisinopril 10 mg tablet 10 mg PO BID Qty: 180 3RF metoprolol tartrate 100 mg tablet 150 mg PO BID Qty: 270 3RF Held aspirin 81 MG tablet,chewable 81 mg PO DAILY@0800 Qty: 90 4RF Hold Instructions: Hold while taking low-dose Eliquis. Patient Comments: [facility] Referrals / Follow Up: Care Physician,No Primary [Primary Care Provider] - Disposition Disposition (needs filled in before D/C Order can be placed): [facility]way Facility Charges/Coding Visit Charges Inpatient E&M: 89068 Disch Hosp >30min
[2023-02-04] MEDS: Ampicillin/Sulbactam 3 GM in 0.9% Normal Saline (100mL MB+) 100 ML IV (13:53)
--- NOTE | 2023-02-04 14:32 | PCM.PN.ID ---
Physical Exam Narrative Feeling better, foot doing well, no fever, no n/v/d. Const alert and no apparent distress General Appearance: cooperative Resp normal air movement and clear to auscultation bilaterally Cardio regular rate and regular rhythm GI soft to palpation, non-tender and non-distended Skin no rashes or lesions noted Skin Narrative: no new rash, foot wrapped ID ID: Route of nutrition/ use of supplements: [] Nutritional Intake: [] IV Site: [] Kelley Catheter: []
[2023-02-04 14:45] VITALS: BP 127/67; PULSE 88; RESP 18; TEMP 36.9; O2SAT 96
--- NOTE | 2023-02-04 15:58 | CASEMGMT ---
Social Work Received notice from Jazlyn in [facility] TCU admissions that patient is approved by insurance for TCU admission. Notified physician, nursing, and patient. Faxed orders to TCU, for continuity of care. Patient agreeable to plan for TCU. Plan: Skilled level of care, for a less than 30 day stay at [facility] TCU. No other services requested or indicated. -PALLAVI Castillo
[2023-02-04 16:50] LABS: Bedside Glucose 236 mg/dL (74-106)
--- NOTE | 2023-02-04 17:15 | NURSING ---
Attempted to call report to TCU, nurse is in another patient's room and is to call back for report
--- NOTE | 2023-02-04 18:27 | NURSING ---
Report given to Glenn Emery to go to room 8 on TCU
== END 2023-02-04 18:42 | disposition skilled nursing facility (03) | DRG 41 ==
LOC: ED 07:51 → PCU 09:43
PROVIDERS: Anesthesiology; Emergency Medicine; Student in an Organized Health Care Education/Training Program; Emergency Provider Student in an Organized Health Care Education/Training Program; Visit Provider Internal Medicine
PROC: 0Y6N0Z9 Detachment at Left Foot, Partial 1st Ray, Open Approach (ICD-10-PCS; principal; 2023-02-01 07:45)
DX: E11.42 Type 2 diabetes mellitus with diabetic polyneuropathy (principal); M86.172 Other acute osteomyelitis, left ankle and foot; I42.8 Other cardiomyopathies; Z68.41 Body mass index [BMI] 40.0-44.9, adult; I50.32 Chronic diastolic (congestive) heart failure; L03.116 Cellulitis of left lower limb; L02.612 Cutaneous abscess of left foot; I27.20 Pulmonary hypertension, unspecified; E11.621 Type 2 diabetes mellitus with foot ulcer; I11.0 Hypertensive heart disease with heart failure; J98.2 Interstitial emphysema; E11.51 Type 2 diabetes mellitus with diabetic peripheral angiopathy without gangrene; E11.69 Type 2 diabetes mellitus with other specified complication; E66.01 Morbid (severe) obesity due to excess calories; E11.65 Type 2 diabetes mellitus with hyperglycemia; Z79.4 Long term (current) use of insulin; L97.524 Non-pressure chronic ulcer of other part of left foot with necrosis of bone; G47.33 Obstructive sleep apnea (adult) (pediatric); M21.6X2 Other acquired deformities of left foot; B95.4 Other streptococcus as the cause of diseases classified elsewhere; B96.4 Proteus (mirabilis) (morganii) as the cause of diseases classified elsewhere; B96.5 Pseudomonas (aeruginosa) (mallei) (pseudomallei) as the cause of diseases classified elsewhere; B95.7 Other staphylococcus as the cause of diseases classified elsewhere; B95.61 Methicillin susceptible Staphylococcus aureus infection as the cause of diseases classified elsewhere; Z79.82 Long term (current) use of aspirin; Z79.899 Other long term (current) drug therapy; Z87.891 Personal history of nicotine dependence
CPT/HCPCS: 36415; 73620; 73630; 73718; 76000; 80048; 80053; 80202; 81001; 82962; 83036; 83605; 84443; 84484; 85025; 85027; 85610; 85652; 86140; 87040; 87070; 87075; 87077; 87086; 87102; 87186; 87205; 87206; 87640; 88305; 88307; 88311; 93005; 93922; 94002; 94003; 94660; 97162; 97166; 97168; 97530; 97802; 97803; 99284; A4216; J0295; J2405

== ENCOUNTER 2023-02-04 19:00 | Inpatient (IN) | payer OTHER, SELFPAY ==
[2023-02-04 19:38] VITALS: BP 124/74; PULSE 90; RESP 16; TEMP 37.1
--- NOTE | 2023-02-04 19:50 | HP.PCM_ITS ---
HPI - General General Date of Admission: 02/04/23 Date of Service: 02/04/23 Chief Complaint: Here for rehabilitation. HPI Narrative 01/31/2023 CAMILO MULLER, is a 52 Male who presents to [facility] Emergency Department with wound. Left foot infection for 1.5 weeks, no known injury, left great toe drainage. Erythema left dorsal foot, pain left leg with standing. Left foot necrosis, cellulitis, ESR 31, CRP 119, WBC 18.5, Lactic acid 2.7. Sodium 129, Glucose 409, Patient did not know he was diabetic. Vancomycin, Zosyn given. X-ray left foot showed osteomyelitis, subcutaneous emphysema. 01/31/2023 Admit to Hospital. Vancomycin, Zosyn, MRI, YUE Doppler, Dr. Moore for left foot osteomyelitis. 01/31/2023 YUE doppler normal. 02/01/2023 MRI left foot cellulitis, osteomyelitis left great toe. A1c 11.4, start sliding scale insulin. 02/01/2023 Dr. Moore performed transmetatarsal amputation left foot. 02/02/2023 Feels well postop. Cultures growing gram negative rods, Staph, continue Vancomycin, Zosyn. Basal 20 units bid, add post prandial insulin for Diabetes Mellitus II. 02/03/2023 Dr. Kwok proteus, Staph, methicillin sensitive coagulase negative staph, continue Zosyn, stop Vancomycin. 02/04/[address] left lower extremity[address] Dr. Kwok recommended Augmentin PO x 7 days. 02/04/2023 Admit to TCU with debility, here for rehabilitation, strengthening, prior to discharge home alone. [facility] Medical History Congestive heart failure Diabetes mellitus, type 2 Essential hypertension Hypoxia Morbid obesity Neuropathy Nonischemic cardiomyopathy Obstructive sleep apnea Pulmonary hypertension Right arm fracture Sinus tachycardia Varicose vein of leg Home Medications aspirin 81 mg chewable tablet 81 mg PO DAILY@0800 [facility] ##90 10/10/13 [Rx Last Taken Unknown] diltiazem HCl 120 mg capsule,extended release 24 hr (Cardizem CD) 120 mg PO BID BP #180 caps 10/15/22 [Rx Last Taken Unknown] furosemide 40 mg tablet 40 mg PO BID water pill #180 tabs 10/15/22 [Rx Last Taken Unknown] lisinopril 10 mg tablet 10 mg PO BID bp #180 tabs 10/15/22 [Rx Last Taken Unknown] metoprolol tartrate 100 mg tablet 150 mg (1.5 x 100 mg) PO BID BP #270 tabs 10/15/22 [Rx Last Taken Unknown] acetaminophen 325 mg tablet 650 mg (2 x 325 mg) PO Q6H PRN PRN Pain 1-10 Or Fever >100.7 #0 tabs 02/04/23 [Rx Last Taken Unknown] amoxicillin 875 mg-potassium clavulanate 125 mg tablet 1 tab PO BID infection #14 tabs 02/04/23 [Rx Last Taken Unknown] apixaban 2.5 mg tablet (Eliquis) 2.5 mg PO BID blood thinn #60 tabs 02/04/23 [Rx Last Taken Unknown] arginine 7 gram-glutam 7 gram-CaHMB 1.5 whtq-qqvem-cp-min oral pwd pkt (Andrews (with collagen)) 1 packet PO BIDCM nutritional supp #0 ea 02/04/23 [Rx Last Taken Unknown] insulin glargine-yfgn 100 unit/mL (3 mL) subcutaneous pen 35 unit (0.35 mL) subcut BID diabetes #0 mL 02/04/23 [Rx Last Taken Unknown] insulin lispro 100 unit/mL subcutaneous pen (Humalog KwikPen (U-100) Insulin) 22 unit (0.22 mL) subcut TIDAC diabetes #0 mL 02/04/23 [Rx Last Taken Unknown] insulin lispro 100 unit/mL subcutaneous pen (Humalog KwikPen (U-100) Insulin) See Protocol subcut ACHS diabetes #0 mL 02/04/23 [Rx Last Taken Unknown] oxycodone 5 mg tablet 2.5 - 5 mg (0.5 - 1 x 5 mg) PO Q4H PRN PRN Pain Score 4-10 #0 tabs 02/04/23 [Rx Last Taken Unknown] Allergy/AdvReac Type Severity Reaction Status Date / Time No Known Allergies Allergy Verified 01/31/23 06:37 Family History Father CAD (coronary artery disease) COPD (chronic obstructive pulmonary disease) Mother Cancer Heart disease Surgical History History of left heart catheterization (LHC) (~10/09/13) History of open reduction and internal fixation (ORIF) procedure History of umbilical hernia repair Social History (Updated 02/04/23 @ 19:[address] Jake Mcdonald MD) household members: none Smoking Status: Former smoker how long ago did patient quit smokin years ago alcohol intake: current alcohol intake frequency: holidays/special occasions only substance use type: does not use caffeine: No ROS Constitutional Constitutional: Denies chills, fever(s) or weight gain ENT HEENT: Denies headache(s), nasal congestion or nasal discharge Cardiovascular Cardiovascular: Denies chest pain or palpitations Respiratory/Chest Respiratory/Chest: Denies cough, excessive phlegm production or shortness of breath with exertion Gastrointestinal Gastrointestinal: Denies abdominal pain, nausea or vomiting Genitourinary Genitourinary: Denies dysuria Musculoskeletal Musculoskeletal: Denies joint pain or joint swelling Integumentary Integumentary: Denies rash or wounds Neurologic Neurologic: Denies focal weakness, numbness or tingling Psychiatric Psychiatric: Denies anxiety, auditory hallucinations, depression, homicidal ideation or suicidal ideation Physical Exam Const alert General Appearance: cooperative HEENT normocephalic Eyes PERRL and EOMs intact bilaterally Neck supple, no JVD and no carotid bruits Resp normal respiratory effort, normal air movement and clear to auscultation bilaterally Cardio regular rate and regular rhythm GI normal to inspection, nondistended, normoactive bowel sounds, non-tender and non-distended Extremity normal capillary refill Extremity Narrative: Left foot dressed. General Extremity: Negative for edema Skin no rashes or lesions noted General Skin Exam: no breakdown Psych affect normal Appearance: appropriate Assessment & Plan Assessment/Plan (1) Debility: (2) New onset type 2 diabetes mellitus: (3) Sepsis: (4) Osteomyelitis of great toe of left foot: (5) Cellulitis of left foot: (6) Diabetic polyneuropathy: (7) Hypertension: (8) Heart failure with preserved ejection fraction: (9) Obstructive sleep apnea: (10) BMI 40.0-44.9, adult: PLAN: Plan 52 year old male with below past medical history hospitalized for sepsis, left great toe osteomyelitis, left foot cellulitis, new onset Diabetes Mellitus II, underwent left transmetatarsal amputation 02/01/[address] Moore, admitted to TCU with debility, here for rehabilitation, strengthening, prior to discharge home alone. * Debility - PT/OT. * Pain - Tylenol 1000mg q6 prn pain (1-5), Oxycodone 5mg q4 prn pain (6-10). * Bowel - senna/colace 2 tablets bid, Magnesium citrate 300ml po daily prn. * Adult immunization - Administer pneumonia vaccine, covid vaccine, flu vaccine as appropriate. * DVT prophylaxis - Eliquis 2.5mg bid thru 03/03/2023. * Left great toe osteomyelitis status post left transmetatarsal ampuation - Augmentin 875mg bid thru 02/11/2023, Andrews 1 packet bid, consult Dr. Moore. * CV prophylaxis - Aspirin 81mg daily. * Hypertension - Metoprolol 150mg bid, Diltiazem 120mg bid, Lisinopril 10mg bid. * Heart failure preserved ejection fraction - Metoprolol 150mg bid, Lasix 40mg bid. * Diabetes Mellitus II - Glargine 35 units bid, Humalog 22 units TIDAC.
--- NOTE | 2023-02-04 20:07 | NURSING ---
Per patient uses cpap at home but does not have anyone that can bring to facility, states respiratory therapy provided one on the acute side, respiratory contacted via phone and requested CPAP be provided on TCU. Patient A&Ox4 to person/place/time/situation. Educated on flu vaccine and pneumovac patient states I'm not taking those, I don't like vaccines.
--- NOTE | 2023-02-04 21:04 | NURSING ---
Patient declined HS care despite education/encouragement
--- NOTE | 2023-02-04 21:12 | PCM.CONS.GEN ---
Assessment & Plan Assessment/Plan (1) Osteomyelitis of great toe of left foot: (2) Abscess of left foot: (3) Cellulitis of left foot: (4) Equinus deformity of left foot: (5) Diabetic polyneuropathy: (6) Hypertension: (7) Morbid obesity: PLAN: Plan Patient seen and evaluated He is s/p tendo Achilles lengthening of the left foot, transmetatarsal amputation left foot, incision and drainage with wide debridement, sharp debridement to the level of bone, and tissue advancement flap of the left foot. DOS: 02/01/2023. POD #3. Transmetatarsal amputation noted to the left foot. Sutures intact at distal stump. Skin flap demonstrates healthy viability and is pink in color. There is resolving erythema noted to the left foot postsurgery. 1 g vancomycin powder was placed at the amputation site prior to closure. Presurgical labs: WBC 18.5, ESR 31, CRP 119, lactic acid 2.3 (down from 2.7); WBC decreased to 10.6 postsurgical intervention. Blood culture obtained negative for growth. Wound culture obtained demonstrating Proteus and alphahemolytic strep. Staph aureus protein A PCR positive MRSA PCR negative Surgical cultures: Tissue and abscess demonstrates Proteus hauseri, Streptococcus gallolyticus pas. Bone culture demonstrates Proteus hauseri, Streptococcus gallolyticus pas, Staphylococcus xylosus. LEAS performed 01/31/2023 demonstrating no evidence of arterial occlusive disease. Imaging: Radiograph 01/31/2023 demonstrates soft tissue swelling and subcutaneous soft tissue emphysema particularly over the distal phalanx of the great toe. MRI performed 04/02/2022 demonstrates decreased T1 signal of the distal phalanx and proximal phalanx of the hallux with corresponding increased T2 signal of the distal phalanx and proximal phalanx of the hallux consistent with osteomyelitis. There is evidence of soft tissue emphysema about the hallux and significant soft tissue swelling of the hallux and forefoot of the left foot. There is fluid collection within the musculature overlying the plantar first metatarsal. Postsurgical radiographs 02/01/2023 demonstrates transmetatarsal amputation of the left foot. Dressings: Betadine soaked Adaptic to incision sites, 4 x 4 gauze, ABD, Kerlix x2, Webril cast padding, 4 inch Tres wrap, 6 inch Tres wrap. A well-padded posterior splint applied to the left lower extremity and anchored with a 4 inch Tres and 6 inch Tres wrap. Dressings changed 02/04/2023. Dressings to remain intact with changes twice a week. Patient is newly diagnosed diabetic with A1c 11.4%. Discussed proper diabetic diet and foods to avoid. Discussed with him implementing diet modifications advised by vp analytics to aid in glycemic control. Encouraged active lifestyle modification not only to improve blood sugar/A1c but to aid in weight loss as patient is morbidly obese. Discussed checking feet daily given history of wounds and diabetes. Patient is to remain nonweightbearing to the left lower extremity/foot with assistance of walker. He is to continue elevating left foot at all times rest for postoperative edema control. Dr. Mcdonald following for medical management, his assistance in care is appreciated. Wound nurse continuing to follow for assistance in dressing changes, she is appreciated. Infectious disease following for antibiotic management. Patient on 2 weeks of oral Augmentin following surgery. Currently prognosis is good with healthy-appearing amputation stump. Patient does state he feels better each day. Podiatry will continue to follow while in the transitional care unit. Upon discharge home from transitional care unit he will continue to follow for postoperative care in office with me. Jr. Kristine EstesP.M. [facility] [phone] HPI Consult Data Date of Consult: 02/04/23 HPI Narrative Reason for Consultation: Postoperative care s/p tendo Achilles lengthening, TMA, skin flap left foot HPI Narrative: CAMILO MULLER, is a 52 M who presents to the transitional care unit following discharge from [facility] on 02/04/2023 for continued care s/p tendo Achilles lengthening, transmetatarsal amputation, and a tissue advancement/skin flap of the left foot. Patient presented to [facility] 01/31/2023 with worsening left foot infection of 3 weeks duration with failure to improve at home with self-care. Patient was started on IV antibiotics and left foot radiographs were obtained demonstrating soft tissue infection with suspected osteomyelitis of the hallux of the left foot. He did undergo MRI confirming osteomyelitis of the left hallux with large abscess pocket to the plantar foot along the first metatarsal. He was scheduled for surgical intervention on 02/01/2023. Following surgical intervention patient has been doing well remaining nonweightbearing to the left lower extremity with healthy viable skin flap at the amputation stump. He denies N/V/F/chills. Denies further complaints. Consulted to podiatry for continued postoperative care. [facility] Medical History Congestive heart failure Diabetes mellitus, type 2 Essential hypertension Hypoxia Morbid obesity Neuropathy Nonischemic cardiomyopathy Obstructive sleep apnea Pulmonary hypertension Right arm fracture Sinus tachycardia Varicose vein of leg Home Medications aspirin 81 mg chewable tablet 81 mg PO DAILY@0800 [facility] ##90 10/10/13 [Rx Last Taken Unknown] diltiazem HCl 120 mg capsule,extended release 24 hr (Cardizem CD) 120 mg PO BID BP #180 caps 10/15/22 [Rx Last Taken Unknown] furosemide 40 mg tablet 40 mg PO BID water pill #180 tabs 10/15/22 [Rx Last Taken Unknown] lisinopril 10 mg tablet 10 mg PO BID bp #180 tabs 10/15/22 [Rx Last Taken Unknown] metoprolol tartrate 100 mg tablet 150 mg (1.5 x 100 mg) PO BID BP #270 tabs 10/15/22 [Rx Last Taken Unknown] acetaminophen 325 mg tablet 650 mg (2 x 325 mg) PO Q6H PRN PRN Pain 1-10 Or Fever >100.7 #0 tabs 02/04/23 [Rx Last Taken Unknown] amoxicillin 875 mg-potassium clavulanate 125 mg tablet 1 tab PO BID infection #14 tabs 02/04/23 [Rx Last Taken Unknown] apixaban 2.5 mg tablet (Eliquis) 2.5 mg PO BID blood thinn #60 tabs 02/04/23 [Rx Last Taken Unknown] arginine 7 gram-glutam 7 gram-CaHMB 1.5 [id number] oral pwd pkt (Andrews (with collagen)) 1 packet PO BIDCM nutritional supp #0 ea 02/04/23 [Rx Last Taken Unknown] insulin glargine-yfgn 100 unit/mL (3 mL) subcutaneous pen 35 unit (0.35 mL) subcut BID diabetes #0 mL 02/04/23 [Rx Last Taken Unknown] insulin lispro 100 unit/mL subcutaneous pen (Humalog KwikPen (U-100) Insulin) 22 unit (0.22 mL) subcut TIDAC diabetes #0 mL 02/04/23 [Rx Last Taken Unknown] insulin lispro 100 unit/mL subcutaneous pen (Humalog KwikPen (U-100) Insulin) See Protocol subcut ACHS diabetes #0 mL 02/04/23 [Rx Last Taken Unknown] oxycodone 5 mg tablet 2.5 - 5 mg (0.5 - 1 x 5 mg) PO Q4H PRN PRN Pain Score 4-10 #0 tabs 02/04/23 [Rx Last Taken Unknown] Allergy/AdvReac Type Severity Reaction Status Date / Time No Known Allergies Allergy Verified 01/31/23 06:37 Family History Father CAD (coronary artery disease) COPD (chronic obstructive pulmonary disease) Mother Cancer Heart disease Surgical History History of left heart catheterization (LHC) (~10/09/13) History of open reduction and internal fixation (ORIF) procedure History of umbilical hernia repair Social History (Updated 02/04/23 @ 19:[address] Jake Mcdonald MD) household members: none Smoking Status: Former smoker how long ago did patient quit smokin years ago alcohol intake: current alcohol intake frequency: holidays/special occasions only substance use type: does not use caffeine: No ROS Constitutional Constitutional: Denies body ache(s), chills or fever(s) Eyes Eyes: Denies blurry vision, change in vision or diplopia ENT HEENT: Denies dysphagia, nasal congestion, nasal discharge or sore throat Cardiovascular Cardiovascular: Denies chest pain, claudication or palpitations Respiratory/Chest Respiratory/Chest: Denies dyspnea, shortness of breath at rest or wheezing Gastrointestinal Gastrointestinal: Denies abdominal pain, constipation, diarrhea, nausea or vomiting Genitourinary Genitourinary: Denies dysuria, hematuria, urinary frequency, urinary hesitancy, urinary incontinence or urinary urgency Musculoskeletal Musculoskeletal: Denies joint pain, joint stiffness or joint swelling Integumentary Integumentary: Denies lesions, pruritus or rash Neurologic Neurologic: Denies dizziness, numbness or seizures Psychiatric Psychiatric: Denies anxiety or depression Endocrine Endocrinology: Denies cold intolerance, heat intolerance or polyuria Hematologic/Lymphatic Hematologic/Lymphatic: Denies easy bleeding or easy bruising Allergic/Immunologic Allergic/Immunologic: Denies wheezing Physical Exam Const alert, oriented x3, no apparent distress and well nourished General Appearance: cooperative Nutritional Appearance: morbidly obese HEENT normocephalic Eyes General Eye: normal appearance of both eyes Neck General: normal visual inspection Lymph Lymphatic: no lymphadenopathy noted and no lymphedema noted Resp normal respiratory effort Cardio regular rate and regular rhythm Extremity normal capillary refill, no calf tenderness and no pedal edema Extremity Narrative: Vascular: DP and PT pulses palpable bilateral. Capillary fill time to digits less than 5 seconds bilateral. Dermatological: Transmetatarsal amputation of left foot with intact sutures to the distal stump and intact sutures posterior overlying the Achilles tendon. No signs of infection. Erythema overlying the foot is decreasing. No purulent drainage noted. Skin flap appears healthy and pink in coloration with excellent viability. Musculoskeletal: Muscle strength 5 of 5 age-appropriate. There is decreased range of motion of the ankle joint dorsiflexion with the knee extended without pain or crepitus. There is a component of equinus noted bilateral. Transmetatarsal amputation left foot with intact sutures. Skin no rashes or lesions noted, skin turgor normal and no jaundice Neuro oriented x3 and moves all extremities
[2023-02-04 21:21] LABS: Bedside Glucose 118 mg/dL (74-106)
[2023-02-04 22:41] VITALS: BP 124/72; PULSE 75
[2023-02-04] MEDS: Metoprolol Tartrate 100 MG Tablet 150 MG PO (22:41)
[2023-02-04] MEDS: Lisinopril 10 MG Tablet PO (22:42)
[2023-02-04] MEDS: dilTIAZem CD 120 MG Capsule PO (22:42)
[2023-02-04] MEDS: APIXABAN 2.5 MG TABLET (WCH) PO (22:42)
[2023-02-04] MEDS: Amox/Clavulanate 875 MG Tablet PO (22:42)
[2023-02-05 00:38] VITALS: BMI 43.3
[2023-02-05] MEDS: Furosemide 40 MG Tablet PO ×2 (05:30→13:24)
[2023-02-05 06:03] VITALS: PULSE 84; RESP 18; O2SAT 98
[2023-02-05 06:48] LABS: Bedside Glucose 189 mg/dL (74-106)
[2023-02-05 08:54] LABS: Anion Gap 4 (5-15); BUN 10 mg/dL (7-18); BUN/Creat Ratio 21.6 RATIO (10-20); Calcium,Total 8.4 mg/dL (8.5-10.1); Chloride 110 mmol/L (98-107); Creatinine, Serum 0.46 mg/dL (0.70-1.30); EST Glomerular Filtration Rate 204 mL/min (>60); Est Glom Filt Rate - Afr Amer 247 mL/min (>60); Glucose 203 mg/dL (74-106); Potassium 3.9 mmol/L (3.5-5.1); Sodium Level 135 mmol/L (136-145)
[2023-02-05] MEDS: Juven (unflavored) Packet 1 PACKET PO ×2 (08:55→17:40)
[2023-02-05] MEDS: Amox/Clavulanate 875 MG Tablet PO ×2 (08:55→17:41)
[2023-02-05] MEDS: dilTIAZem CD 120 MG Capsule PO ×2 (08:55→21:17)
[2023-02-05] MEDS: Insulin Glargine-YFGN 100 UNIT/ML Pen 35 UNIT SC (08:56)
[2023-02-05] MEDS: APIXABAN 2.5 MG TABLET (WCH) PO ×2 (08:56→21:14)
[2023-02-05 08:57] VITALS: BP 160/91; PULSE 81
[2023-02-05] MEDS: Metoprolol Tartrate 100 MG Tablet 150 MG PO ×2 (08:57→21:14)
[2023-02-05] MEDS: Lisinopril 10 MG Tablet PO ×2 (08:58→21:16)
[2023-02-05] MEDS: Insulin Lispro 100 UNIT/ML INSULN.PEN 22 UNIT SC ×3 (09:04→17:40)
[2023-02-05 10:00] LABS: Absolute Lymphocyte Count 3.04 X10^3/uL (0.83-4.51); Absolute Neutrophil Count 6.7 X10^3/uL (2.0-7.7); Basophil# 0.07 X10^3/uL; Basophil% 0.7 % (0-1); Eosinophils% 0.9 % (0-5); Hematocrit 43.9 % (40-54); Lymphocyte # 3.04 X10^3/ul (0.83-4.51); Lymphocyte % 28.3 % (19-41); Mean Corp Hgb Conc 31.9 g/dL (32-36); Mean Corpuscular Hgb 29.3 pg (27.0-32.0); Mean Corpuscular Volume 91.8 fL (80-94); Mean Platelet Vol. 8.9 fl (6.2-12.0); Monocyte# 0.77 X10^3/uL; Monocyte% 7.2 % (0-10); NRBC Flagged by Analyzer 0 % (0-5); Neutrophil # 6.65 X10^3/uL (2.7-7.7); Neutrophil % 61.9 % (47-70); Platelet Count 426 K/mm3 (150-450); RBC Distribution Width CV 12.2 % (11.6-14.6); RBC Distribution Width SD 40.8 fl (35.1-43.9); Red Blood Count 4.78 M/mm3 (4.6-6.2); White Blood Count 10.7 K/mm3 (4.4-11.0)
[2023-02-05 11:18] LABS: Bedside Glucose 225 mg/dL (74-106)
[2023-02-05] MEDS: Tuberculin,Purif.prot.deriv. 50 TU/ML Vial 0.1 ML ID (11:52)
[2023-02-05] MEDS: Miconazole Nitrate 43 GM Bottle 1 APPLIC TOPICAL ×2 (11:58→21:20)
[2023-02-05] MEDS: Menthol/Lanolin/Calamine/Znox 113 GM Tube 1 APPLIC TOPICAL ×2 (12:01→21:19)
[2023-02-05] MEDS: 0.9% Saline Lock 10 ML Syringe IV (13:24)
[2023-02-05 14:33] VITALS: BP 124/64; PULSE 80; RESP 15; TEMP 35.6; O2SAT 96
[2023-02-05 16:41] LABS: Bedside Glucose 130 mg/dL (74-106)
[2023-02-05 17:53] VITALS: BMI 43.2
[2023-02-05 21:14] VITALS: BP 104/56; PULSE 72
[2023-02-05 21:34] LABS: Bedside Glucose 112 mg/dL (74-106)
--- NOTE | 2023-02-05 23:49 | CPS ---
Checked on pt, PAP machine was found set on [employer] 02/01. Pt stated he did not know his home settings and that these settings felt fine.
[2023-02-06] MEDS: Furosemide 40 MG Tablet PO ×2 (05:34→14:54)
[2023-02-06] MEDS: 0.9% Saline Lock 10 ML Syringe IV ×2 (05:34→23:07)
[2023-02-06 05:39] VITALS: BP 125/78; PULSE 81
[2023-02-06 06:13] LABS: Bedside Glucose 184 mg/dL (74-106)
[2023-02-06 08:09] VITALS: PULSE 81
[2023-02-06] MEDS: Metoprolol Tartrate 100 MG Tablet 150 MG PO ×2 (08:09→23:03)
[2023-02-06] MEDS: dilTIAZem CD 120 MG Capsule PO ×2 (08:09→23:02)
[2023-02-06] MEDS: Lisinopril 10 MG Tablet PO ×2 (08:10→23:03)
[2023-02-06] MEDS: APIXABAN 2.5 MG TABLET (WCH) PO ×2 (08:10→23:03)
[2023-02-06] MEDS: Amox/Clavulanate 875 MG Tablet PO ×2 (08:10→16:54)
[2023-02-06] MEDS: Juven (unflavored) Packet 1 PACKET PO ×2 (08:11→16:54)
[2023-02-06] MEDS: Insulin Lispro 100 UNIT/ML INSULN.PEN 22 UNIT SC ×3 (08:11→16:54)
[2023-02-06] MEDS: Miconazole Nitrate 43 GM Bottle 1 APPLIC TOPICAL ×2 (08:15→23:02)
[2023-02-06] MEDS: Menthol/Lanolin/Calamine/Znox 113 GM Tube 1 APPLIC TOPICAL ×2 (08:15→23:06)
[2023-02-06] MEDS: Insulin Glargine-YFGN 100 UNIT/ML Pen 35 UNIT SC (09:31)
[2023-02-06 10:01] LABS: Bedside Glucose 211 mg/dL (74-106)
[2023-02-06 11:18] LABS: Bedside Glucose 210 mg/dL (74-106)
--- NOTE | 2023-02-06 12:07 | PHA.CONS_ITS ---
Documented by User: Davis Covarrubias 02/06/23 12:48 TCU RX Drug Regimen Review Subjective/Objective Subjective/Objective: Subjective: 52 year old male with below past medical history hospitalized for sepsis, left great toe osteomyelitis, left foot cellulitis, new onset Diabetes Mellitus II, underwent left transmetatarsal amputation 02/01/[address] Moore, admitted to TCU with debility, here for rehabilitation, strengthening, prior to discharge home alone. Objective: Allergies No Known Allergies Allergy (Verified 01/31/23 06:37) Current Medications Generic Name Dose Route Start Last Admin Trade Name Freq PRN Reason Stop Dose Admin Acetaminophen 1,000 mg 02/04/23 20:10 Acetaminophen 500 Mg Tablet PO Q6H PRN PRN Pain Score 1-5 Amoxicillin/Clavulanate Potassium 875 mg 02/04/23 22:00 02/06/23 08:10 Amox/Clavulanate 875 Mg Tablet PO 02/11/23 08:01 875 mg BIDCM [facility] Administration Apixaban 2.5 mg 02/04/23 22:00 02/06/23 08:10 Apixaban 2.5 Mg Tablet ([facility]) PO 03/03/23 22:00 2.5 mg BID HAY Administration Aspirin 81 mg 03/04/23 08:00 [facility] Calamine/Phenol 1 applic 02/05/23 10:00 02/06/23 08:15 Menthol/Lanolin/Calamine/Znox 113 Gm Tube TOPICAL 1 applic BID [facility] Administration Protocol Diltiazem HCl 120 mg 02/04/23 22:00 02/06/23 08:09 Diltiazem Cd 120 Mg Capsule PO 120 mg BID [facility] Administration Protocol Furosemide 40 mg 02/05/23 06:00 02/06/23 05:34 Furosemide 40 Mg Tablet PO 40 mg BIDLX [facility] Administration Protocol Insulin Glargine 35 unit 02/04/23 22:00 02/06/23 09:31 Insulin Glargine-Yfgn 100 Unit/Ml Pen SC 35 unit BID HAY Administration Insulin Human Lispro 22 unit 02/05/23 06:45 02/06/23 11:42 Insulin Lispro 100 Unit/Ml Insuln.Pen SC 22 u TIDAC [facility] Administration L-Arginine/L-Glutamine/Calcium HMB 1 packet 02/05/23 08:00 02/06/23 08:11 Andrews (Unflavored) Packet PO 1 packet BIDCM [facility]AY Administration Lisinopril 10 mg 02/04/23 22:00 02/06/23 08:10 Lisinopril 10 Mg Tablet PO 10 mg BID HAY Administration Protocol Magnesium Citrate 300 ml 02/04/23 20:09 Magnesium Citrate 300 Ml PO
--- NOTE | 2023-02-06 12:07 | PCM.PN.DRR ---
Documented by User: Davis Covarrubias 02/06/23 12:48 TCU RX Drug Regimen Review Subjective/Objective Subjective/Objective: Subjective: 52 year old male with below past medical history hospitalized for sepsis, left great toe osteomyelitis, left foot cellulitis, new onset Diabetes Mellitus II, underwent left transmetatarsal amputation 02/01/[address] Moore, admitted to TCU with debility, here for rehabilitation, strengthening, prior to discharge home alone. Objective: Allergies No Known Allergies Allergy (Verified 01/31/23 06:37) Current Medications Generic Name Dose Route Start Last Admin Trade Name Freq PRN Reason Stop Dose Admin Acetaminophen 1,000 mg 02/04/23 20:10 Acetaminophen 500 Mg Tablet PO Q6H PRN PRN Pain Score 1-5 Amoxicillin/Clavulanate Potassium 875 mg 02/04/23 22:00 02/06/23 08:10 Amox/Clavulanate 875 Mg Tablet PO 02/11/23 08:01 875 mg BIDCM [facility] Administration Apixaban 2.5 mg 02/04/23 22:00 02/06/23 08:10 Apixaban 2.5 Mg Tablet ([facility]) PO 03/03/23 22:00 2.5 mg BID HAY Administration Aspirin 81 mg 03/04/23 08:00 Aspirin 81 Mg Tab.Chew [facility] Calamine/Phenol 1 applic 02/05/23 10:00 02/06/23 08:15 Menthol/Lanolin/Calamine/Znox 113 Gm Tube TOPICAL 1 applic BID [facility] Administration Protocol Diltiazem HCl 120 mg 02/04/23 22:00 02/06/23 08:09 Diltiazem Cd 120 Mg Capsule PO 120 mg BID [facility] Administration Protocol Furosemide 40 mg 02/05/23 06:00 02/06/23 05:34 Furosemide 40 Mg Tablet PO 40 mg BIDLX [facility] Administration Protocol Insulin Glargine 35 unit 02/04/23 22:00 02/06/23 09:31 Insulin Glargine-Yfgn 100 Unit/Ml Pen SC 35 unit BID [facility]AY Administration Insulin Human Lispro 22 unit 02/05/23 06:45 02/06/23 11:42 Insulin Lispro 100 Unit/Ml Insuln.Pen SC 22 u TIDAC [facility] Administration L-Arginine/L-Glutamine/Calcium HMB 1 packet 02/05/23 08:00 02/06/23 08:11 Andrews (Unflavored) Packet PO 1 packet BIDCM [facility] Administration Lisinopril 10 mg 02/04/23 22:00 02/06/23 08:10 Lisinopril 10 Mg Tablet PO 10 mg BID HAY Administration Protocol Magnesium Citrate 300 ml 02/04/23 20:09 Magnesium Citrate 300 Ml PO DAILY PRN Constipation Metoprolol Tartrate 150 mg 02/04/23 22:00 02/06/23 08:09 Metoprolol Tartrate 100 Mg Tablet PO 150 mg BID [facility] Administration Protocol Miconazole Nitrate 1 applic 02/05/23 10:00 02/06/23 08:15 Miconazole Nitrate 43 Gm Bottle TOPICAL 1 applic BID [facility] Administration Protocol Oxycodone HCl 5 mg 02/04/23 20:10 Oxycodone 5 Mg Tablet PO Q4H PRN PRN Pain Score 6-10 Senna/Docusate Sodium 2 tablet 02/04/23 22:00 02/06/23 08:10 Senna/Docusate Sodium 1 Tablet PO Not Given BID [facility] Sodium Chloride 10 - 40 ml 02/04/23 19:51 02/06/23 05:34 0.9% Saline Lock 10 Ml Syringe IV 10 ml UD PRN Administration SALINE FLUSH Tuberculin PPD 0.1 ml 02/12/23 10:00 Tuberculin,Purif.Prot.Deriv. 50 Tu/Ml Vial ID 02/12/23 10:01 X1 ONE Problem List (Updated 02/04/23 @ 20:[address] Jake Mcdonald MD) BMI 40.0-44.9, adult (Acute) Heart failure with preserved ejection fraction (Acute) Hypertension (Chronic) Diabetic polyneuropathy (Acute) Sepsis (Acute) New onset type 2 diabetes mellitus (Acute) Debility (Acute) Equinus deformity of left foot (Acute) Abscess of left foot (Acute) Osteomyelitis of great toe of left foot (Acute) Cellulitis of left foot (Acute) Obstructive sleep apnea (Chronic) Morbid obesity (Chronic) Vital Signs Temp Pulse Resp BP Pulse Ox O2 Del Method O2 Flow Rate 96.1 F L 81 15 125/78 H 96 Room Air 96 02/05/23 14:33 02/06/23 08:09 02/05/23 14:33 02/06/23 05:39 02/05/23 14:33 02/05/23 14:33 02/04/23 19:38 Oxygen Flow Rate (L/min) 96 Oxygen Delivery Method Room Air Weight: 129.529 kg Body Mass Index (BMI) 43.2 Sodium 135 mmol/L (136-145) L 02/05/23 07:55 Potassium 3.9 mmol/L (3.5-5.1) 02/05/23 07:55 Chloride 110 mmol/L (98-107) H 02/05/23 07:55 Carbon Dioxide 21.0 mmol/L (21.0-32.0) 02/05/23 07:55 Anion Gap 4 (5-15) L 02/05/23 07:55 BUN 10 mg/dL (7-18) 02/05/23 07:55 Creatinine 0.46 mg/dL (0.70-1.30) L 02/05/23 07:55 Est GFR (MDRD) Af Amer 247 mL/min (>60) 02/05/23 07:55 Est GFR (MDRD) Non-Af 204 mL/min (>60) 02/05/23 07:55 BUN/Creatinine Ratio 21.6 RATIO (10-20) H 02/05/23 07:55 Glucose 203 mg/dL (74-106) H 02/05/23 07:55 Assessment/Plan: 1. Pain: acetaminophen 1000 mg Po Q6H PRN pain (1-5), oxycodone 5 mg PO Q4H PRN pain (6-10). The patient has not required any PRN pain medications so far this admission. Please continue to monitor for PRN medication usage, pain levels, LFTs (AST/ALT = 12/15 U/L on 02/01/23), for constipation, respiratory depression, drowsiness/dizziness, and syncope/ataxia/falls. 2. Bowel: senna/docusate 2 tablets PO BID, magnesium citrate 300 mL PO daily PRN constipation. The patient has not required any PRN magnesium citrate so far this admission and the patient's last bowel movement was on 02/03/23. Please continue to monitor for PRN medication usage, bowel movements, diarrhea and constipation. 3. Left great toe osteomyelitis s/p TMA: amoxicillin/clavulanate 875/125 mg PO BID with meals through 02/11/23, Andrews 1 packet PO BID. Please continue to monitor for s/s of infection including erythema, purulent drainage, fever (recent temps = 96.1-98.8 F), chills, white blood cell counts (WBC = 10.7 K/mm3 on 02/05/23), for diarrhea, renal function (serum creatinine = 0.46 mg/dL with creatinine clearance > 100 on 02/05/23), for wound healing and LFTs (AST/ALT = 12/15 U/L on 02/01/23). 4. DVT prophylaxis: apixaban 2.5 mg PO BID through 03/03/23. Please continue to monitor for s/s of a DVT including erythema, swelling, and pain in the lower extremity, for s/s of bleeding/excessive bruising, hemoglobin levels (Hgb = 14.0 g/dL on 02/05/23), and platelet count (Plt = 426 K/mm3 on 02/05/23). 5. Diabetes Mellitus II: insulin glargine 35 units SC BID, insulin lispro 22 units SC TIDAC. Please continue to monitor blood glucose levels (recent range = 112-225 mg/dL), hemoglobin A1C levels (A1C = 11.3% on 02/01/23), for s/s of hypo/hyperglycemia, for hypotension and for s/s of DKA. 6. Hypertension/heart failure preserved ejection fraction: metoprolol tartrate 150 mg PO BID, lisinopril 10 mg PO daily, diltiazem 120 mg PO BID, furosemide 40 mg PO BID. Please continue to monitor for s/s of heart failure exacerbation such as shortness of breath, lower extremity edema, weight gain (recent weights = 129.7-131.4 kg appears stable), respiratory rates (recent range = 15-18 breaths/min), for fatigue, heart rates (recent range = 72-90 beats/min), blood pressures (recent range = 104-160/56-91 mmHg), potassium levels (K = 3.9 mmol/L on 02/05/23), sodium levels (Na = 135 mmol/L on 02/05/23), renal function (serum creatinine = 0.46 mg/dL with creatinine clearance > 100 on 02/05/23), for a dry cough, for s/s of angioedema, for constipation, for s/s of dehydration, and calcium levels (Ca = 8.4 mg/dL on 02/05/23). 7. CV prophylaxis: aspirin 81 mg PO daily. Please continue to monitor for chest pain, for bleeding/excessive bruising, and for GI distress with aspirin administration. If GI distress occurs with aspirin administration please ensure it is administered with food. 8. Skin irritation/tinea corporis: calmoseptine 1 application topically BID, miconazole powder 1 application topically BID. Please continue to monitor for skin irritation and for resolution of tinea corporis. Assessment/Plan for indications treated with psychotropic medications: NA Medical chart and medication regimen reviewed. The following medication irregularities or issues were identified: NA Date Date of Note:: 02/06/23 Documented by User: Dr. Jake Mcdonald MD 02/06/23 13:49 TCU RX Drug Regimen Review Provider Comments Provider responsibility Provider Comments to Recommendations by Pharmacy: Agree
[2023-02-06 14:10] VITALS: BP 120/69; PULSE 80; RESP 16; TEMP 37.2; O2SAT 95
[2023-02-06 16:38] LABS: Bedside Glucose 157 mg/dL (74-106)
[2023-02-06 17:00] VITALS: BMI 43.2
[2023-02-06 21:45] LABS: Bedside Glucose 120 mg/dL (74-106)
[2023-02-06 23:03] VITALS: BP 111/68; PULSE 77
[2023-02-06] MEDS: Acetaminophen 500 MG Tablet 1000 MG PO (23:05)
--- NOTE | 2023-02-07 00:59 | NURSING ---
Left vm for Cassandra DAVIS, after report received from day shift nurse that pt would like some assistance w/ some paperwork for disability.
[2023-02-07 06:00] VITALS: BP 131/80; PULSE 69
[2023-02-07] MEDS: Furosemide 40 MG Tablet PO ×2 (06:24→14:16)
[2023-02-07 06:45] LABS: Bedside Glucose 190 mg/dL (74-106)
[2023-02-07 07:55] VITALS: BP 139/74; PULSE 76
[2023-02-07] MEDS: APIXABAN 2.5 MG TABLET (WCH) PO ×2 (07:55→21:43)
[2023-02-07] MEDS: dilTIAZem CD 120 MG Capsule PO ×2 (07:55→21:43)
[2023-02-07] MEDS: Lisinopril 10 MG Tablet PO ×2 (07:55→21:43)
[2023-02-07] MEDS: Metoprolol Tartrate 100 MG Tablet 150 MG PO ×2 (07:55→21:43)
[2023-02-07] MEDS: Amox/Clavulanate 875 MG Tablet PO ×2 (07:55→17:36)
[2023-02-07] MEDS: Insulin Glargine-YFGN 100 UNIT/ML Pen 30 UNIT SC ×2 (07:56→21:44)
[2023-02-07] MEDS: Insulin Lispro 100 UNIT/ML INSULN.PEN 20 UNIT SC ×3 (07:57→17:36)
[2023-02-07] MEDS: Menthol/Lanolin/Calamine/Znox 113 GM Tube 1 APPLIC TOPICAL ×2 (07:58→21:50)
[2023-02-07] MEDS: Juven (unflavored) Packet 1 PACKET PO ×2 (07:58→17:36)
[2023-02-07] MEDS: Miconazole Nitrate 43 GM Bottle 1 APPLIC TOPICAL ×2 (07:58→21:50)
[2023-02-07 11:07] LABS: Bedside Glucose 254 mg/dL (74-106)
--- NOTE | 2023-02-07 11:24 | NURSING ---
Offered covid vaccine, VIS provided. Patient refuses at this time.
--- NOTE | 2023-02-07 11:28 | WOUNDNOTE ---
Talked with Dr Moore and the plan is to leave the current dressing in place to the left foot with the next dressing change planned for 02/09/23.
--- NOTE | 2023-02-07 12:50 | NURSING ---
[employer] Portal Developer Note; Activity Asset: Julian Cortes is independent in his choice of daily activities. At this time her prefers to do activities in his room. He has a smartphone he uses for music, games, internet, and talking or texting family and friends. He did state he welcomes visits from the nremt when available. Staff will continue to offer daily activities and respect his right to say no.
[2023-02-07] MEDS: 0.9% Saline Lock 10 ML Syringe IV (14:17)
[2023-02-07 14:20] VITALS: BP 114/59; PULSE 84
[2023-02-07 15:17] LABS: Bedside Glucose 160 mg/dL (74-106)
[2023-02-07 16:00] VITALS: RESP 18; TEMP 37.2; O2SAT 96
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
--- NOTE | 2023-02-07 16:31 | CASEMGMT ---
Social Work Met with patient to complete initial assessment. Introduced self and role. Verified contacts. Pt confirmed full code. Educated to [facility] insurance with NRD 02/21, with no noted copays; continued stay is not guaranteed with each review. Pt is NWBS for LLE, and has daily wound dressing changes. Pt's goal is to DC to mother's home that is handicap accessible, ramped entrance. SW will follow for DC planning assistance. Cassandra Flores, CAPACITOR PACK PRESS OPERATOR PILLAR WORKER
[2023-02-07 16:41] LABS: Bedside Glucose 178 mg/dL (74-106)
[2023-02-07 21:22] LABS: Bedside Glucose 178 mg/dL (74-106)
[2023-02-07 21:43] VITALS: BP 115/68; PULSE 81
[2023-02-07 22:00] VITALS: PULSE 81; RESP 16; O2SAT 95
[2023-02-08] MEDS: Furosemide 40 MG Tablet PO ×2 (05:55→14:36)
[2023-02-08 06:50] LABS: Bedside Glucose 198 mg/dL (74-106)
[2023-02-08] MEDS: Insulin Lispro 100 UNIT/ML INSULN.PEN 20 UNIT SC ×3 (08:27→17:52)
[2023-02-08 08:28] VITALS: BP 137/62; PULSE 90
[2023-02-08] MEDS: Amox/Clavulanate 875 MG Tablet PO ×2 (08:28→17:52)
[2023-02-08] MEDS: APIXABAN 2.5 MG TABLET (WCH) PO ×2 (08:28→20:21)
[2023-02-08] MEDS: Metoprolol Tartrate 100 MG Tablet 150 MG PO ×2 (08:28→20:21)
[2023-02-08] MEDS: Juven (unflavored) Packet 1 PACKET PO ×2 (08:28→17:52)
[2023-02-08] MEDS: dilTIAZem CD 120 MG Capsule PO ×2 (08:28→20:21)
[2023-02-08] MEDS: Insulin Glargine-YFGN 100 UNIT/ML Pen 30 UNIT SC (08:29)
[2023-02-08] MEDS: Lisinopril 10 MG Tablet PO ×2 (08:30→20:21)
[2023-02-08] MEDS: Miconazole Nitrate 43 GM Bottle 1 APPLIC TOPICAL ×2 (08:30→20:25)
[2023-02-08] MEDS: Menthol/Lanolin/Calamine/Znox 113 GM Tube 1 APPLIC TOPICAL ×2 (08:31→20:25)
[2023-02-08 12:01] LABS: Bedside Glucose 205 mg/dL (74-106)
[2023-02-08 12:25] VITALS: BMI 42.9
[2023-02-08 14:37] VITALS: BP 130/71; PULSE 83; RESP 16; TEMP 36.4; O2SAT 97
[2023-02-08 16:52] LABS: Bedside Glucose 162 mg/dL (74-106)
[2023-02-08 20:21] VITALS: BP 117/60; PULSE 78
[2023-02-08 21:00] VITALS: PULSE 70; RESP 16; O2SAT 96
[2023-02-08 21:33] LABS: Bedside Glucose 117 mg/dL (74-106)
[2023-02-08 21:44] VITALS: PULSE 79; RESP 18; O2SAT 95
[2023-02-09] MEDS: Furosemide 40 MG Tablet PO ×2 (06:16→13:03)
[2023-02-09 06:17] VITALS: BP 113/59; PULSE 74
[2023-02-09 06:27] LABS: Bedside Glucose 182 mg/dL (74-106)
[2023-02-09 07:54] VITALS: BP 144/74; PULSE 82; RESP 18; TEMP 35.9; O2SAT 99
[2023-02-09] MEDS: Insulin Lispro 100 UNIT/ML INSULN.PEN 20 UNIT SC ×3 (08:01→17:03)
[2023-02-09] MEDS: Juven (unflavored) Packet 1 PACKET PO ×2 (08:01→16:51)
[2023-02-09] MEDS: Miconazole Nitrate 43 GM Bottle 1 APPLIC TOPICAL ×2 (08:04→21:52)
[2023-02-09] MEDS: Menthol/Lanolin/Calamine/Znox 113 GM Tube 1 APPLIC TOPICAL ×2 (08:04→22:02)
[2023-02-09] MEDS: Amox/Clavulanate 875 MG Tablet PO ×2 (08:04→16:50)
[2023-02-09 08:05] VITALS: BP 144/74; PULSE 82
[2023-02-09] MEDS: Metoprolol Tartrate 100 MG Tablet 150 MG PO ×2 (08:05→21:56)
[2023-02-09] MEDS: APIXABAN 2.5 MG TABLET (WCH) PO ×2 (08:05→21:56)
[2023-02-09] MEDS: dilTIAZem CD 120 MG Capsule PO ×2 (08:05→21:56)
[2023-02-09] MEDS: Lisinopril 10 MG Tablet PO ×2 (08:06→21:56)
[2023-02-09] MEDS: Insulin Glargine-YFGN 100 UNIT/ML Pen 30 UNIT SC ×2 (10:05→21:53)
[2023-02-09 11:21] LABS: Bedside Glucose 240 mg/dL (74-106)
--- NOTE | 2023-02-09 13:46 | CASEMGMT ---
Social Work IDT met with patient and mother via conference call for care plan meeting. Discussed patient's progress in PT/OT/SN. Educated to [employer] insurance with NRD 02/21 and continued stay is not guaranteed with each review. Pt will DC to mother's house that has FFSU and ramp entrance. Mother cannot provide any assistance though. Pt has access to all DME needed at time of DC. SW to coordinate skilled HHC. Will continue to follow for DC planning. NILS MonroeW
--- NOTE | 2023-02-09 15:20 | PN_ITS ---
Subjective Subjective Patient seen this afternoon resting in bed following session of therapy. He continues to elevate left lower extremity at all times of rest. Denies pain. States therapy is going well. Denies constitutional symptoms. Denies further complaints. Objective Data Objective Data Vital Signs: Vital Signs Temp Pulse Resp BP Pulse Ox O2 Del Method O2 Flow Rate 96.7 F L 82 18 144/74 H 99 Room Air 96 02/09/23 07:54 02/09/23 08:05 02/09/23 07:54 02/09/23 08:05 02/09/23 07:54 02/09/23 07:54 02/04/23 19:38 Oxygen Flow Rate (L/min) 96 Oxygen Delivery Method Room Air Weight: 128.503 kg Body Mass Index (BMI) 42.9 Intake & Output: Intake and Output for Last 24 Hours 02/07/23 02/08/23 02/09/23 23:59 23:59 23:59 Intake Total 820 / 820 1080 / 1080 840 / 840 Output Total 250 / 250 Balance 570 / 570 1080 / 1080 840 / 840 Lab / Micro Data 02/05/23 08:10 02/05/23 07:55 Labs: Laboratory Results - last 24 hr 02/08/23 16:34: POC Glucose 162 H 02/08/23 21:11: POC Glucose 117 H 02/09/23 05:56: POC Glucose 182 H 02/09/23 11:02: POC Glucose 240 H Physical Exam Const alert, oriented x3, no apparent distress and well nourished General Appearance: cooperative Nutritional Appearance: morbidly obese HEENT normocephalic Eyes General Eye: normal appearance of both eyes Neck General: normal visual inspection Lymph Lymphatic: no lymphadenopathy noted and no lymphedema noted Resp normal respiratory effort Cardio regular rate and regular rhythm Extremity normal capillary refill, no calf tenderness and no pedal edema Extremity Narrative: Vascular: DP and PT pulses palpable bilateral. Capillary fill time to digits less than 5 seconds bilateral. Dermatological: Transmetatarsal amputation of left foot with intact sutures to the distal stump and intact sutures posterior overlying the Achilles tendon. No signs of infection. Erythema overlying the foot is decreasing. No purulent drainage noted. Skin flap appears healthy and pink in coloration with excellent viability. Musculoskeletal: Muscle strength 5 of 5 age-appropriate. There is decreased range of motion of the ankle joint dorsiflexion with the knee extended without pain or crepitus. There is a component of equinus noted bilateral. Transmetatarsal amputation left foot with intact sutures. Skin no rashes or lesions noted, skin turgor normal and no jaundice Neuro oriented x3 and moves all extremities Assessment & Plan Assessment/Plan (1) Osteomyelitis of great toe of left foot: (2) Abscess of left foot: (3) Cellulitis of left foot: (4) Equinus deformity of left foot: (5) Diabetic polyneuropathy: (6) Hypertension: (7) Morbid obesity: PLAN: Plan Patient seen and evaluated He is s/p tendo Achilles lengthening of the left foot, transmetatarsal amputation left foot, incision and drainage with wide debridement, sharp debridement to the level of bone, and tissue advancement flap of the left foot. DOS: 02/01/2023. POD #8. Transmetatarsal amputation noted to the left foot. Sutures intact at distal stump. Skin flap demonstrates healthy viability and is pink in color. There is a slight wound to the plantar medial area overlying previous area of abscess. No purulent drainage noted. There is some serosanguineous drainage at this site. There is resolving erythema noted to the left foot postsurgery. 1 g vancomycin powder was placed at the amputation site prior to closure. Presurgical labs: WBC 18.5, ESR 31, CRP 119, lactic acid 2.3 (down from 2.7); WBC decreased to 10.6 postsurgical intervention. Blood culture obtained negative for growth. Wound culture obtained demonstrating Proteus and alphahemolytic strep. Staph aureus protein A PCR positive MRSA PCR negative Surgical cultures: Tissue and abscess demonstrates Proteus hauseri, Streptococcus gallolyticus pas. Bone culture demonstrates Proteus hauseri, Stre ptococcus gallolyticus pas, Staphylococcus xylosus. LEAS performed 01/31/2023 demonstrating no evidence of arterial occlusive disease. Imaging: Radiograph 01/31/2023 demonstrates soft tissue swelling and subcutaneous soft tissue emphysema particularly over the distal phalanx of the great toe. MRI performed 04/02/2022 demonstrates decreased T1 signal of the distal phalanx and proximal phalanx of the hallux with corresponding increased T2 signal of the distal phalanx and proximal phalanx of the hallux consistent with osteomyelitis. There is evidence of soft tissue emphysema about the hallux and significant soft tissue swelling of the hallux and forefoot of the left foot. There is fluid collection within the musculature overlying the plantar first metatarsal. Postsurgical radiographs 02/01/2023 demonstrates transmetatarsal amputation of the left foot. Dressings: Betadine soaked Adaptic to incision sites, 4 x 4 gauze, ABD, Kerlix x2, Webril cast padding, 4 inch Tres wrap, 6 inch Tres wrap. A well-padded posterior splint applied to the left lower extremity and anchored with a 4 inch Tres and 6 inch Tres wrap. Dressings changed 02/04/2023. Dressings to remain intact with changes twice a week. Patient is newly diagnosed diabetic with A1c 11.4%. Discussed proper diabetic diet and foods to avoid. Discussed with him implementing diet modifications advised by quality intern to aid in glycemic control. Encouraged active lifestyle modification not only to improve blood sugar/A1c but to aid in weight loss as patient is morbidly obese. Discussed checking feet daily given history of wounds and diabetes. Patient is to remain nonweightbearing to the left lower extremity/foot with assi stance of walker. He is to continue elevating left foot at all times rest for postoperative edema control. Dr. Mcdonald following for medical management, his assistance in care is appreciated. Wound nurse continuing to follow for assistance in dressing changes, she is appreciated. Infectious disease following for antibiotic management. Patient on 1 week of oral Augmentin following surgery. Nearing completion of oral antibiotic. Currently prognosis is good with healthy-appearing amputation stump. Patient does state he feels better each day. Discussed removing sutures in 2 weeks. Podiatry will continue to follow while in the transitional care unit. Upon discharge home from transitional care unit he will continue to follow for postoperative care in office with me. Jr. Deja Estes.P.M. [facility] [place] [phone]
--- NOTE | 2023-02-09 15:27 | WOUNDNOTE ---
wound photo: left foot
--- NOTE | 2023-02-09 15:28 | WOUNDNOTE ---
wound photo: left foot
[2023-02-09 17:16] LABS: Bedside Glucose 206 mg/dL (74-106)
[2023-02-09 21:53] VITALS: PULSE 82; RESP 20; O2SAT 97
[2023-02-09 21:56] VITALS: BP 105/48; PULSE 83
[2023-02-09 22:01] LABS: Bedside Glucose 154 mg/dL (74-106)
[2023-02-09 22:13] VITALS: PULSE 83; RESP 16; O2SAT 100
[2023-02-10] MEDS: Furosemide 40 MG Tablet PO ×2 (06:00→13:23)
[2023-02-10 06:36] LABS: Bedside Glucose 184 mg/dL (74-106)
[2023-02-10] MEDS: Insulin Lispro 100 UNIT/ML INSULN.PEN 20 UNIT SC ×3 (08:17→18:07)
[2023-02-10] MEDS: Amox/Clavulanate 875 MG Tablet PO ×2 (08:19→18:08)
[2023-02-10] MEDS: Juven (unflavored) Packet 1 PACKET PO ×2 (08:19→18:09)
[2023-02-10] MEDS: dilTIAZem CD 120 MG Capsule PO ×2 (08:19→21:41)
[2023-02-10] MEDS: APIXABAN 2.5 MG TABLET (WCH) PO ×2 (08:20→21:41)
[2023-02-10] MEDS: Lisinopril 10 MG Tablet PO ×2 (08:20→21:42)
[2023-02-10] MEDS: Insulin Glargine-YFGN 100 UNIT/ML Pen 30 UNIT SC (08:21)
[2023-02-10] MEDS: Menthol/Lanolin/Calamine/Znox 113 GM Tube 1 APPLIC TOPICAL (08:25)
[2023-02-10 08:26] VITALS: BP 121/68; PULSE 82
[2023-02-10] MEDS: Metoprolol Tartrate 100 MG Tablet 150 MG PO ×2 (08:26→21:38)
[2023-02-10] MEDS: Miconazole Nitrate 43 GM Bottle 1 APPLIC TOPICAL (08:28)
--- NOTE | 2023-02-10 10:44 | MDS.RN ---
MDS pain interview completed.
[2023-02-10 11:28] VITALS: BP 121/68; PULSE 82; RESP 16; TEMP 36.6; O2SAT 99
[2023-02-10 11:54] LABS: Bedside Glucose 175 mg/dL (74-106)
[2023-02-10 17:21] LABS: Bedside Glucose 172 mg/dL (74-106)
[2023-02-10 21:36] LABS: Bedside Glucose 124 mg/dL (74-106)
[2023-02-10 21:38] VITALS: BP 103/62; PULSE 82
[2023-02-11] MEDS: Furosemide 40 MG Tablet PO ×2 (05:44→13:13)
[2023-02-11 06:30] LABS: Bedside Glucose 200 mg/dL (74-106)
[2023-02-11] MEDS: Insulin Lispro 100 UNIT/ML INSULN.PEN 20 UNIT SC ×3 (08:36→17:57)
[2023-02-11] MEDS: Juven (unflavored) Packet 1 PACKET PO ×2 (08:37→18:01)
[2023-02-11] MEDS: Amox/Clavulanate 875 MG Tablet PO (08:37)
[2023-02-11] MEDS: dilTIAZem CD 120 MG Capsule PO ×2 (08:37→20:51)
[2023-02-11 08:38] VITALS: BP 129/72; PULSE 83
[2023-02-11] MEDS: APIXABAN 2.5 MG TABLET (WCH) PO ×2 (08:38→20:50)
[2023-02-11] MEDS: Metoprolol Tartrate 100 MG Tablet 150 MG PO ×2 (08:38→20:51)
[2023-02-11] MEDS: Insulin Glargine-YFGN 100 UNIT/ML Pen 30 UNIT SC ×2 (08:38→22:34)
[2023-02-11] MEDS: Lisinopril 10 MG Tablet PO ×2 (08:39→20:51)
[2023-02-11] MEDS: Miconazole Nitrate 43 GM Bottle 1 APPLIC TOPICAL ×2 (08:43→20:53)
[2023-02-11] MEDS: Menthol/Lanolin/Calamine/Znox 113 GM Tube 1 APPLIC TOPICAL ×2 (08:45→20:53)
[2023-02-11 11:30] LABS: Bedside Glucose 186 mg/dL (74-106)
--- NOTE | 2023-02-11 12:26 | NURSING ---
Diabetes education provided on insulin pen. Showed patient how to attach and prime needle and how to dial up dose of insulin. Showed patient how to administer insulin. Patient asked how he knows how much insulin to give. Educated he is on a set dose with meal times and that he will need to check his blood sugar before meals and when he may need to hold insulin if hypoglycemic. Patient denies further questions.
--- NOTE | 2023-02-11 12:49 | CASEMGMT ---
Social Work BIMS () and PHQ-2 () completed for MDS assessment. Cassandra Flores MSW MAP PLOTTER
[2023-02-11 14:48] VITALS: BP 115/64; PULSE 80; RESP 18; TEMP 37.1; O2SAT 95
[2023-02-11 16:49] LABS: Bedside Glucose 136 mg/dL (74-106)
--- NOTE | 2023-02-11 18:40 | NURSING ---
Educated on how to administer insulin today. Patient able to prime, dial up dose, and self administer with proper technique with no difficulties. Main concern is knowing what dose he is to give. Reassurance provided that we will go over all orders before discharge and that is PCP will be following up.
[2023-02-11 20:00] VITALS: PULSE 75; RESP 16; O2SAT 98
[2023-02-11 20:51] VITALS: BP 113/68; PULSE 75
[2023-02-11 21:27] LABS: Bedside Glucose 170 mg/dL (74-106)
--- NOTE | 2023-02-11 23:09 | CPS ---
pt on [facility] machine in autopap 02/01
[2023-02-12] MEDS: Furosemide 40 MG Tablet PO ×2 (05:21→13:35)
[2023-02-12 05:24] VITALS: BP 112/65; PULSE 74
[2023-02-12 05:25] VITALS: PULSE 74; O2SAT 98
[2023-02-12 06:46] LABS: Bedside Glucose 195 mg/dL (74-106)
[2023-02-12 08:50] VITALS: BP 103/54; PULSE 77; RESP 17; TEMP 37; O2SAT 96
[2023-02-12] MEDS: Juven (unflavored) Packet 1 PACKET PO ×2 (08:51→16:49)
[2023-02-12] MEDS: Miconazole Nitrate 43 GM Bottle 1 APPLIC TOPICAL ×2 (08:51→22:55)
[2023-02-12 08:52] VITALS: PULSE 77
[2023-02-12] MEDS: Metoprolol Tartrate 100 MG Tablet 150 MG PO ×2 (08:52→22:57)
[2023-02-12] MEDS: APIXABAN 2.5 MG TABLET (WCH) PO ×2 (08:52→22:58)
[2023-02-12] MEDS: Insulin Glargine-YFGN 100 UNIT/ML Pen 30 UNIT SC ×2 (08:53→22:57)
[2023-02-12] MEDS: Lisinopril 10 MG Tablet PO ×2 (08:53→22:59)
[2023-02-12] MEDS: Insulin Lispro 100 UNIT/ML INSULN.PEN 20 UNIT SC ×3 (08:54→16:49)
[2023-02-12] MEDS: dilTIAZem CD 120 MG Capsule PO ×2 (08:55→22:59)
[2023-02-12] MEDS: Menthol/Lanolin/Calamine/Znox 113 GM Tube 1 APPLIC TOPICAL ×2 (08:56→22:56)
[2023-02-12 09:39] LABS: Absolute Lymphocyte Count 3.05 X10^3/uL (0.83-4.51); Basophil# 0.09 X10^3/uL; Basophil% 0.9 % (0-1); Eosinophil# 0.18 X10^3/uL; Eosinophils% 1.8 % (0-5); Hematocrit 45.7 % (40-54); Hemoglobin 14.1 g/dL (13.0-16.5); Lymphocyte # 3.05 X10^3/ul (0.83-4.51); Lymphocyte % 29.8 % (19-41); Mean Corp Hgb Conc 30.9 g/dL (32-36); Mean Corpuscular Hgb 28.6 pg (27.0-32.0); Mean Corpuscular Volume 92.7 fL (80-94); Mean Platelet Vol. 8.8 fl (6.2-12.0); Monocyte# 0.87 X10^3/uL; Monocyte% 8.5 % (0-10); NRBC Flagged by Analyzer 0 % (0-5); Neutrophil # 5.95 X10^3/uL (2.7-7.7); Platelet Count 331 K/mm3 (150-450); RBC Distribution Width CV 12.6 % (11.6-14.6); RBC Distribution Width SD 42.7 fl (35.1-43.9); Red Blood Count 4.93 M/mm3 (4.6-6.2); White Blood Count 10.2 K/mm3 (4.4-11.0)
[2023-02-12] MEDS: Tuberculin,Purif.prot.deriv. 50 TU/ML Vial 0.1 ML ID (10:51)
[2023-02-12 11:04] LABS: Anion Gap 5 (5-15); BUN 15 mg/dL (7-18); Calcium,Total 9.2 mg/dL (8.5-10.1); Chloride 104 mmol/L (98-107); EST Glomerular Filtration Rate 151 mL/min (>60); Est Glom Filt Rate - Afr Amer 183 mL/min (>60); Glucose 213 mg/dL (74-106); Potassium 4.1 mmol/L (3.5-5.1); Sodium Level 136 mmol/L (136-145)
[2023-02-12 12:06] LABS: Bedside Glucose 202 mg/dL (74-106)
[2023-02-12 17:02] LABS: Bedside Glucose 166 mg/dL (74-106)
[2023-02-12 21:55] LABS: Bedside Glucose 175 mg/dL (74-106)
[2023-02-12 22:57] VITALS: BP 105/67; PULSE 85
--- NOTE | 2023-02-12 23:00 | NURSING ---
Porfirio crackers, peanut butter, and Sprite Zero given for hs snack per pt request.
[2023-02-13] VITALS (7 sets, daily range): BP systolic 100–144; BP diastolic 57–74; PULSE 75–984; RESP 16–18; TEMP 36.6; O2SAT 97
[2023-02-13 06:24] LABS: Bedside Glucose 205 mg/dL (74-106)
[2023-02-13] MEDS: Juven (unflavored) Packet 1 PACKET PO ×2 (08:10→17:23)
[2023-02-13] MEDS: Metoprolol Tartrate 100 MG Tablet 150 MG PO ×2 (08:11→21:35)
[2023-02-13] MEDS: Lisinopril 10 MG Tablet PO ×2 (08:11→21:36)
[2023-02-13] MEDS: APIXABAN 2.5 MG TABLET (WCH) PO ×2 (08:11→21:35)
[2023-02-13] MEDS: dilTIAZem CD 120 MG Capsule PO ×2 (08:11→21:35)
[2023-02-13] MEDS: Insulin Glargine-YFGN 100 UNIT/ML Pen 30 UNIT SC ×2 (08:12→22:54)
[2023-02-13] MEDS: Insulin Lispro 100 UNIT/ML INSULN.PEN 20 UNIT SC ×3 (08:13→17:24)
[2023-02-13] MEDS: Miconazole Nitrate 43 GM Bottle 1 APPLIC TOPICAL ×2 (08:14→21:33)
[2023-02-13] MEDS: Menthol/Lanolin/Calamine/Znox 113 GM Tube 1 APPLIC TOPICAL ×2 (08:14→21:37)
[2023-02-13 12:06] LABS: Bedside Glucose 212 mg/dL (74-106)
[2023-02-13] MEDS: Furosemide 40 MG Tablet PO (13:32)
[2023-02-13 16:29] LABS: Bedside Glucose 145 mg/dL (74-106)
[2023-02-13] MEDS: Acetaminophen 500 MG Tablet 1000 MG PO (20:04)
[2023-02-13 23:12] LABS: Bedside Glucose 146 mg/dL (74-106)
--- NOTE | 2023-02-14 04:01 | NURSING ---
Addendum entered by Cassandra Flores 02/14/23 13:23: SW provided an HealthCare Provider Directory to pt upon admission and pt to notify nursing which PCP he prefers to become established with. Original Note: Left vm for Cassandra DAVIS, to inquire about status of PCP as pt does not have a PCP. Will need to establish care w/ a PCP to have prescriptions filled and to enrolled in [facility].
--- NOTE | 2023-02-14 04:55 | NURSING ---
Patient reported pain in bilateral lower extremities and bilateral fingertips. Tylenol PRN given, was effective.
[2023-02-14 05:55] VITALS: BP 119/69; PULSE 71
[2023-02-14] MEDS: Furosemide 40 MG Tablet PO ×2 (05:57→14:18)
[2023-02-14 06:10] LABS: Bedside Glucose 190 mg/dL (74-106)
[2023-02-14 07:57] VITALS: BP 127/74; PULSE 74
[2023-02-14] MEDS: Juven (unflavored) Packet 1 PACKET PO ×2 (07:57→17:57)
[2023-02-14] MEDS: Metoprolol Tartrate 100 MG Tablet 150 MG PO ×2 (07:57→21:36)
[2023-02-14] MEDS: Lisinopril 10 MG Tablet PO ×2 (07:58→21:36)
[2023-02-14] MEDS: dilTIAZem CD 120 MG Capsule PO ×2 (07:58→21:36)
[2023-02-14] MEDS: APIXABAN 2.5 MG TABLET (WCH) PO ×2 (07:58→21:36)
[2023-02-14] MEDS: Insulin Lispro 100 UNIT/ML INSULN.PEN 20 UNIT SC ×2 (07:58→11:52)
[2023-02-14] MEDS: Insulin Glargine-YFGN 100 UNIT/ML Pen 30 UNIT SC ×2 (07:59→21:38)
[2023-02-14] MEDS: Miconazole Nitrate 43 GM Bottle 1 APPLIC TOPICAL ×2 (08:00→21:31)
[2023-02-14] MEDS: Menthol/Lanolin/Calamine/Znox 113 GM Tube 1 APPLIC TOPICAL ×2 (08:01→21:35)
--- NOTE | 2023-02-14 09:08 | NURSING ---
Habitat Conservation Planner Note; MDS for Complete
[2023-02-14 11:40] LABS: Bedside Glucose 213 mg/dL (74-106)
[2023-02-14 12:31] VITALS: PULSE 90; O2SAT 97
[2023-02-14 14:22] VITALS: BP 146/74; PULSE 94; RESP 18; TEMP 36.5; O2SAT 94
[2023-02-14 17:05] LABS: Bedside Glucose 125 mg/dL (74-106)
[2023-02-14 21:36] VITALS: BP 113/70; PULSE 81
--- NOTE | 2023-02-14 22:00 | NURSING ---
A&O3. Insulin teaching completed with HS insulin administration, discussed difference in long and short acting insulin, insulin as a high alert medication, importance of monitoring blood glucose levels prior to administering insulin, how to use insulin pen, hypo/hyperglycemia s/sx. Patient expresses reluctance to use insulin due to new diabetic, stating It's just alot to remember and I'm would rather take a pill than an injection, especially when I go back to work and requests oral hypoglycemics be started in place of insulin. Patient also states does not currently have a PCP and would like for Dr. Mcdonald to be PCP on discharge. Written communication left for Dr. Mcdonald review in AM regarding patient requests.
[2023-02-14 22:07] LABS: Bedside Glucose 189 mg/dL (74-106)
[2023-02-15 06:26] LABS: Bedside Glucose 195 mg/dL (74-106)
[2023-02-15] MEDS: Furosemide 40 MG Tablet PO ×2 (06:33→14:22)
[2023-02-15] MEDS: Pioglitazone Hydrochloride 30 MG Tablet PO (09:49)
[2023-02-15] MEDS: APIXABAN 2.5 MG TABLET (WCH) PO ×2 (09:49→21:14)
[2023-02-15] MEDS: Juven (unflavored) Packet 1 PACKET PO ×2 (09:49→17:24)
[2023-02-15] MEDS: metFORMIN HCl 1,000 MG Tablet 1000 MG PO ×2 (09:49→17:24)
[2023-02-15 09:50] VITALS: PULSE 82
[2023-02-15] MEDS: Metoprolol Tartrate 100 MG Tablet 150 MG PO ×2 (09:50→21:14)
[2023-02-15] MEDS: Lisinopril 10 MG Tablet PO ×2 (09:50→21:14)
[2023-02-15] MEDS: dilTIAZem CD 120 MG Capsule PO ×2 (09:51→21:15)
[2023-02-15] MEDS: Miconazole Nitrate 43 GM Bottle 1 APPLIC TOPICAL ×2 (09:53→21:18)
[2023-02-15] MEDS: Menthol/Lanolin/Calamine/Znox 113 GM Tube 1 APPLIC TOPICAL ×2 (09:54→21:18)
--- NOTE | 2023-02-15 10:21 | MDS.RN ---
Information for the mds was obtained from review of the clinical record, interview of resident, staff, and direct observation of resident's care.
[2023-02-15 11:46] LABS: Bedside Glucose 238 mg/dL (74-106)
[2023-02-15 12:19] VITALS: BMI 41.7
[2023-02-15 14:01] VITALS: BP 107/60; PULSE 68; RESP 18; TEMP 35.8; O2SAT 94
[2023-02-15 16:51] LABS: Bedside Glucose 169 mg/dL (74-106)
[2023-02-15 21:14] VITALS: BP 103/61; PULSE 91
[2023-02-15 21:28] LABS: Bedside Glucose 200 mg/dL (74-106)
[2023-02-15] MEDS: Acetaminophen 500 MG Tablet 1000 MG PO (21:36)
[2023-02-16] MEDS: Furosemide 40 MG Tablet PO ×2 (05:26→14:04)
[2023-02-16 05:28] VITALS: BP 112/64; PULSE 77
[2023-02-16 06:42] LABS: Bedside Glucose 217 mg/dL (74-106)
--- NOTE | 2023-02-16 07:36 | PN_ITS ---
Subjective Subjective Patient seen this a.m. resting in bed watching TV with foot elevated. He continues to state therapy is going well and he remains nonweightbearing to the left lower extremity with assistance of a walker or wheelchair. States that he is now off of insulin and maintaining blood sugars with oral medication. Admits to losing weight while in hospital but feels that he did need to lose weight. Denies constitutional symptoms. Denies further complaints. Objective Data Objective Data Vital Signs: Vital Signs Temp Pulse Resp BP Pulse Ox O2 Del Method O2 Flow Rate 96.5 F L 77 18 112/64 94 Room Air 96 02/15/23 14:01 02/16/23 05:28 02/15/23 14:01 02/16/23 05:28 02/15/23 14:01 02/15/23 14:01 02/04/23 19:38 FiO2 02/16/23 00:35 Oxygen Flow Rate (L/min) 96 Oxygen Delivery Method Room Air Weight: 124.556 kg Body Mass Index (BMI) 41.7 Intake & Output: Intake and Output for Last 24 Hours 02/14/23 02/15/23 02/16/23 23:59 23:59 23:59 Intake Total 960 / 960 880 / 880 Balance 960 / 960 880 / 880 Lab / Micro Data 02/12/23 09:05 02/12/23 09:05 Labs: Laboratory Results - last 24 hr 02/15/23 11:16: POC Glucose 238 H 02/15/23 16:16: POC Glucose 169 H 02/15/23 21:09: POC Glucose 200 H 02/16/23 06:20: POC Glucose 217 H Physical Exam Const alert, oriented x3, no apparent distress and well nourished General Appearance: cooperative Nutritional Appearance: morbidly obese HEENT normocephalic Eyes General Eye: normal appearance of both eyes Neck General: normal visual inspection Lymph Lymphatic: no lymphadenopathy noted and no lymphedema noted Resp normal respiratory effort Cardio regular rate and regular rhythm Extremity normal capillary refill, no calf tenderness and no pedal edema Extremity Narrative: Vascular: DP and PT pulses palpable bilateral. Capillary fill time to digits less than 5 seconds bilateral. Dermatological: Transmetatarsal amputation of left foot with intact sutures to the distal stump and intact sutures posterior overlying the Achilles tendon. No signs of infection. Erythema overlying the foot is decreasing. No purulent drainage noted. Skin flap appears healthy and pink in coloration with excellent viability. Musculoskeletal: Muscle strength 5 of 5 age-appropriate. There is decreased range of motion of the ankle joint dorsiflexion with the knee extended without pain or crepitus. There is a component of equinus noted bilateral. Transmetatarsal amputation left foot with intact sutures. Skin no rashes or lesions noted, skin turgor normal and no jaundice Neuro oriented x3 and moves all extremities Assessment & Plan Assessment/Plan (1) Osteomyelitis of great toe of left foot: (2) Abscess of left foot: (3) Cellulitis of left foot: (4) Equinus deformity of left foot: (5) Diabetic polyneuropathy: (6) Hypertension: (7) Morbid obesity: PLAN: Plan Patient seen and evaluated He is s/p tendo Achilles lengthening of the left foot, transmetatarsal amputation left foot, incision and drainage with wide debridement, sharp debridement to the level of bone, and tissue advancement flap of the left foot. DOS: 02/01/2023. POD #15. Transmetatarsal amputation noted to the left foot. Sutures intact at distal stump. Skin flap demonstrates healthy viability and is pink in color. There is a slight wound to the plantar medial area overlying previous area of abscess, wound is healing well. No purulent drainage noted. There is some serosanguineous drainage at this site. Erythema resolved. 1 g vancomycin powder was placed at the amputation site prior to closure. Edema well controlled at this time. Presurgical labs: WBC 18.5, ESR 31, CRP 119, lactic acid 2.3 (down from 2.7); WBC decreased to 10.6 postsurgical intervention. Blood culture obtained negative for growth. Wound culture obtained demonstrating Proteus and alphahemolytic strep. Staph aureus protein A PCR positive MRSA PCR negative Surgical cultures: Tissue and abscess demonstrates Proteus hauseri, Streptococcus gallolyticus pas. Bone culture demonstrates Proteus hauseri, Streptococcus gallolyticus pas, Staphylococcus xylosus. LEAS performed 01/31/2023 demonstrating no evidence of arterial occlusive disease. Imaging: Radiograph 01/31/2023 demonstrates soft tissue swelling and subcutaneous soft tissue emphysema particularly over the distal phalanx of the great toe. MRI performed 04/02/2022 demonstrates decreased T1 signal of the distal phalanx and proximal phalanx of the hallux with corresponding increased T2 signal of the distal phalanx and proximal phalanx of the hallux consistent with osteomyelitis. There is evidence of soft tissue emphysema about the hallux and significant soft tissue swelling of the hallux and forefoot of the left foot. There is fluid collection within the musculature overlying the plantar first metatarsal. Postsurgical radiographs 02/01/2023 demonstrates transmetatarsal amputation of the left foot. Dressings: Betadine soaked Adaptic to incision sites, 4 x 4 gauze, ABD, Kerlix x2, Webril cast padding, 4 inch Tres wrap, 6 inch Tres wrap. A well-padded posterior splint applied to the left lower extremity and anchored with a 4 inch Tres and 6 inch Tres wrap. Dressings changed 02/04/2023. Dressings to remain intact with changes weekly. Patient is newly diagnosed diabetic with A1c 11.4%. Discussed proper diabetic diet and foods to avoid. Discussed with him implementing diet modifications advised by international accountant to aid in glycemic control. Encouraged active lifestyle modification not only to improve blood sugar/A1c but to aid in weight loss as patient is morbidly obese. Discussed checking feet daily given history of wounds and diabetes. Patient is to remain nonweightbearing to the left lower extremity/foot with assistance of walker or wheelchair. He is to continue elevating left foot at all times rest for postoperative edema control. Dr. Mcdonald following for medical management, his assistance in care is appreciated. Wound nurse continuing to follow for assistance in dressing changes, she is appreciated. Infectious disease following for antibiotic management. Patient on 1 week of oral Augmentin following surgery. Has completed oral antibiotic. Currently prognosis is good with healthy-appearing amputation stump. Patient does state he feels better each day. Discussed removing sutures next week. Discussed plan upon removal of sutures to transition to CAM boot for protected weightbearing. Discussed following the removal of sutures therapy may continue to work with range of motion and nonweightbearing setting. May continue to build strength lower extremity with light weight exercise/resistance band. Discussed with him to start slow as the Achilles tendon is still healing. He voices understanding of his plan to progress and care. Podiatry will continue to follow while in the transitional care unit. Upon discharge home from transitional care unit he will continue to follow for postoperative care in office with me. Jr. Kevin EstesM. [facility] [phone]
[2023-02-16 08:46] VITALS: BP 101/61; PULSE 94
[2023-02-16] MEDS: dilTIAZem CD 120 MG Capsule PO ×2 (08:46→20:56)
[2023-02-16] MEDS: Pioglitazone Hydrochloride 30 MG Tablet PO (08:46)
[2023-02-16] MEDS: APIXABAN 2.5 MG TABLET (WCH) PO ×2 (08:46→20:56)
[2023-02-16] MEDS: Lisinopril 10 MG Tablet PO ×2 (08:46→20:56)
[2023-02-16] MEDS: metFORMIN HCl 1,000 MG Tablet 1000 MG PO ×2 (08:46→17:10)
[2023-02-16] MEDS: Metoprolol Tartrate 100 MG Tablet 150 MG PO ×2 (08:46→20:56)
[2023-02-16] MEDS: Miconazole Nitrate 43 GM Bottle 1 APPLIC TOPICAL ×2 (08:52→20:59)
[2023-02-16] MEDS: Menthol/Lanolin/Calamine/Znox 113 GM Tube 1 APPLIC TOPICAL ×2 (08:53→21:00)
[2023-02-16] MEDS: Juven (unflavored) Packet 1 PACKET PO ×2 (08:53→17:10)
[2023-02-16 11:23] LABS: Bedside Glucose 212 mg/dL (74-106)
--- NOTE | 2023-02-16 13:11 | WOUNDNOTE ---
Dressing to the left foot was changed by Dr Moore this am.
[2023-02-16 16:00] VITALS: BP 113/62; PULSE 92; RESP 16; TEMP 36.1; O2SAT 97
[2023-02-16 17:22] LABS: Bedside Glucose 173 mg/dL (74-106)
--- NOTE | 2023-02-16 18:06 | CASEMGMT ---
Social Work SW spoke with pt to follow up on DC plans. Pt is progressing well and insurance update is 02/21. Pt states the Dr stated he plans to get the stitches removed during next visit the week of 02/21, then Dr wants pt to remain NWB for about a week to ensure everything remains intact. Then pt expresses comfort/readiness to DC home. Pt did agree to HHC PT/OT/SN and confirmed with mother all DME is equipped for pt. SW offered skilled HHC list with quality and resource data but pt denied and is agreeable to [facility], if accepted. Pt wishes to have Dr. Mcdonald as PCP. SW spoke with Dr. Mcdonald and he agreed. SW will continue to follow for DC planning. NILS MonroeW
[2023-02-16 20:39] VITALS: PULSE 90; RESP 16; O2SAT 96
[2023-02-16 20:56] VITALS: BP 110/63; PULSE 90
[2023-02-16 21:44] LABS: Bedside Glucose 176 mg/dL (74-106)
[2023-02-17] MEDS: Furosemide 40 MG Tablet PO ×2 (05:33→13:41)
[2023-02-17 05:34] VITALS: BP 97/50; PULSE 78
[2023-02-17 06:08] VITALS: PULSE 80; RESP 16; O2SAT 98
[2023-02-17 06:53] LABS: Bedside Glucose 200 mg/dL (74-106)
[2023-02-17] MEDS: Pioglitazone Hydrochloride 30 MG Tablet PO (08:00)
[2023-02-17] MEDS: Juven (unflavored) Packet 1 PACKET PO ×3 (08:01→17:22)
[2023-02-17] MEDS: metFORMIN HCl 1,000 MG Tablet 1000 MG PO ×2 (08:01→17:23)
[2023-02-17] MEDS: APIXABAN 2.5 MG TABLET (WCH) PO ×2 (08:01→20:54)
[2023-02-17] MEDS: dilTIAZem CD 120 MG Capsule PO ×2 (08:04→20:54)
[2023-02-17] MEDS: Menthol/Lanolin/Calamine/Znox 113 GM Tube 1 APPLIC TOPICAL ×2 (08:04→20:56)
[2023-02-17 08:05] VITALS: BP 116/67; PULSE 93
[2023-02-17] MEDS: Metoprolol Tartrate 100 MG Tablet 150 MG PO ×2 (08:05→20:54)
[2023-02-17] MEDS: Miconazole Nitrate 43 GM Bottle 1 APPLIC TOPICAL ×2 (08:05→20:56)
[2023-02-17] MEDS: Lisinopril 10 MG Tablet PO ×2 (08:06→20:53)
[2023-02-17 11:37] LABS: Bedside Glucose 228 mg/dL (74-106)
[2023-02-17 15:40] VITALS: PULSE 105; RESP 16; TEMP 35.9; O2SAT 100
[2023-02-17 17:06] LABS: Bedside Glucose 206 mg/dL (74-106)
[2023-02-17 20:54] VITALS: BP 119/66; PULSE 96
[2023-02-17 21:27] LABS: Bedside Glucose 186 mg/dL (74-106)
[2023-02-18] MEDS: Furosemide 40 MG Tablet PO ×2 (05:53→14:48)
[2023-02-18 06:16] LABS: Bedside Glucose 219 mg/dL (74-106)
[2023-02-18 09:33] VITALS: BP 129/64; PULSE 97
[2023-02-18] MEDS: Pioglitazone Hydrochloride 30 MG Tablet PO (09:33)
[2023-02-18] MEDS: Metoprolol Tartrate 100 MG Tablet 150 MG PO ×2 (09:33→21:26)
[2023-02-18] MEDS: metFORMIN HCl 1,000 MG Tablet 1000 MG PO ×2 (09:34→17:55)
[2023-02-18] MEDS: Lisinopril 10 MG Tablet PO ×2 (09:34→21:29)
[2023-02-18] MEDS: APIXABAN 2.5 MG TABLET (WCH) PO ×2 (09:34→21:24)
[2023-02-18] MEDS: dilTIAZem CD 120 MG Capsule PO ×2 (09:34→21:24)
[2023-02-18] MEDS: Miconazole Nitrate 43 GM Bottle 1 APPLIC TOPICAL ×2 (09:35→21:23)
[2023-02-18] MEDS: Glimepiride 2 MG Tablet PO (09:35)
[2023-02-18] MEDS: Menthol/Lanolin/Calamine/Znox 113 GM Tube 1 APPLIC TOPICAL ×2 (09:35→21:23)
[2023-02-18 11:12] LABS: Bedside Glucose 244 mg/dL (74-106)
[2023-02-18 16:00] VITALS: BP 119/65; PULSE 77; RESP 20; TEMP 37.2; O2SAT 96
[2023-02-18 16:48] LABS: Bedside Glucose 121 mg/dL (74-106)
[2023-02-18] MEDS: Juven (unflavored) Packet 1 PACKET PO (17:55)
[2023-02-18 21:26] VITALS: PULSE 97
[2023-02-18 21:31] VITALS: BP 118/71; PULSE 97; RESP 16; TEMP 37.1; O2SAT 96
[2023-02-18 21:42] LABS: Bedside Glucose 147 mg/dL (74-106)
[2023-02-19] MEDS: Furosemide 40 MG Tablet PO ×2 (06:13→13:16)
[2023-02-19 06:27] LABS: Bedside Glucose 166 mg/dL (74-106)
[2023-02-19 07:13] LABS: Absolute Lymphocyte Count 2.95 X10^3/uL (0.83-4.51); Absolute Neutrophil Count 4.7 X10^3/uL (2.0-7.7); Basophil# 0.07 X10^3/uL; Basophil% 0.8 % (0-1); Eosinophil# 0.21 X10^3/uL; Eosinophils% 2.4 % (0-5); Hematocrit 45.8 % (40-54); Hemoglobin 14.4 g/dL (13.0-16.5); Lymphocyte # 2.95 X10^3/ul (0.83-4.51); Lymphocyte % 33.6 % (19-41); Mean Corp Hgb Conc 31.4 g/dL (32-36); Mean Corpuscular Volume 92.3 fL (80-94); Mean Platelet Vol. 8.7 fl (6.2-12.0); Monocyte# 0.81 X10^3/uL; Monocyte% 9.2 % (0-10); NRBC Flagged by Analyzer 0 % (0-5); Neutrophil # 4.67 X10^3/uL (2.7-7.7); Neutrophil % 53.1 % (47-70); Platelet Count 308 K/mm3 (150-450); RBC Distribution Width CV 12.9 % (11.6-14.6); RBC Distribution Width SD 43.8 fl (35.1-43.9); Red Blood Count 4.96 M/mm3 (4.6-6.2); White Blood Count 8.8 K/mm3 (4.4-11.0)
[2023-02-19 07:55] LABS: Anion Gap 5 (5-15); BUN 19 mg/dL (7-18); BUN/Creat Ratio 28.7 RATIO (10-20); Chloride 104 mmol/L (98-107); Creatinine, Serum 0.66 mg/dL (0.70-1.30); EST Glomerular Filtration Rate 135 mL/min (>60); Est Glom Filt Rate - Afr Amer 164 mL/min (>60); Estimated Creatinine Clearance 129.55 ml/min; Glucose 166 mg/dL (74-106); Potassium 4.2 mmol/L (3.5-5.1); Sodium Level 134 mmol/L (136-145)
[2023-02-19] MEDS: metFORMIN HCl 1,000 MG Tablet 1000 MG PO ×2 (08:32→17:17)
[2023-02-19] MEDS: Glimepiride 2 MG Tablet PO (08:32)
[2023-02-19] MEDS: Pioglitazone Hydrochloride 30 MG Tablet PO (08:32)
[2023-02-19] MEDS: Menthol/Lanolin/Calamine/Znox 113 GM Tube 1 APPLIC TOPICAL ×2 (08:37→21:30)
[2023-02-19] MEDS: Miconazole Nitrate 43 GM Bottle 1 APPLIC TOPICAL ×2 (08:37→21:32)
[2023-02-19] MEDS: Juven (unflavored) Packet 1 PACKET PO ×2 (08:37→17:17)
[2023-02-19] MEDS: Lisinopril 10 MG Tablet PO ×2 (10:32→21:32)
[2023-02-19] MEDS: dilTIAZem CD 120 MG Capsule PO ×2 (10:32→21:32)
[2023-02-19 10:33] VITALS: BP 118/67; PULSE 100
[2023-02-19] MEDS: APIXABAN 2.5 MG TABLET (WCH) PO ×2 (10:33→21:32)
[2023-02-19] MEDS: Metoprolol Tartrate 100 MG Tablet 150 MG PO ×2 (10:33→21:30)
[2023-02-19 11:44] LABS: Bedside Glucose 185 mg/dL (74-106)
[2023-02-19 15:59] VITALS: BP 109/62; PULSE 94; RESP 16; TEMP 35.2; O2SAT 98
[2023-02-19 17:13] LABS: Bedside Glucose 132 mg/dL (74-106)
[2023-02-19 21:30] VITALS: BP 105/57; PULSE 89
[2023-02-19 21:55] VITALS: PULSE 80
[2023-02-19 22:00] LABS: Bedside Glucose 117 mg/dL (74-106)
[2023-02-20] MEDS: Furosemide 40 MG Tablet PO ×2 (06:08→14:25)
[2023-02-20 06:47] LABS: Bedside Glucose 174 mg/dL (74-106)
[2023-02-20] MEDS: Lisinopril 10 MG Tablet PO ×2 (09:05→21:47)
[2023-02-20] MEDS: Glimepiride 2 MG Tablet PO (09:05)
[2023-02-20] MEDS: metFORMIN HCl 1,000 MG Tablet 1000 MG PO ×2 (09:05→16:04)
[2023-02-20] MEDS: Pioglitazone Hydrochloride 30 MG Tablet PO (09:05)
[2023-02-20 09:06] VITALS: BP 115/73; PULSE 95
[2023-02-20] MEDS: Metoprolol Tartrate 100 MG Tablet 150 MG PO ×2 (09:06→21:47)
[2023-02-20] MEDS: Juven (unflavored) Packet 1 PACKET PO ×2 (09:06→16:04)
[2023-02-20] MEDS: Menthol/Lanolin/Calamine/Znox 113 GM Tube 1 APPLIC TOPICAL ×2 (09:07→21:44)
[2023-02-20] MEDS: Miconazole Nitrate 43 GM Bottle 1 APPLIC TOPICAL ×2 (09:07→21:44)
[2023-02-20] MEDS: dilTIAZem CD 120 MG Capsule PO ×2 (09:07→21:47)
[2023-02-20] MEDS: APIXABAN 2.5 MG TABLET (WCH) PO ×2 (09:07→21:47)
[2023-02-20 11:34] LABS: Bedside Glucose 181 mg/dL (74-106)
[2023-02-20 16:00] VITALS: BP 98/57; PULSE 93; RESP 16; TEMP 36.3; O2SAT 95
[2023-02-20 17:06] LABS: Bedside Glucose 120 mg/dL (74-106)
[2023-02-20] MEDS: Acetaminophen 500 MG Tablet 1000 MG PO (18:55)
[2023-02-20 21:37] VITALS: PULSE 87; RESP 16; O2SAT 97
[2023-02-20 21:47] VITALS: BP 104/58; PULSE 87
[2023-02-20 22:59] LABS: Bedside Glucose 119 mg/dL (74-106)
[2023-02-21] MEDS: Furosemide 40 MG Tablet PO ×2 (05:52→14:24)
[2023-02-21 05:55] VITALS: BP 108/65; PULSE 78
[2023-02-21 06:33] LABS: Bedside Glucose 152 mg/dL (74-106)
[2023-02-21 06:39] VITALS: PULSE 78; RESP 16; O2SAT 99
[2023-02-21] MEDS: Pioglitazone Hydrochloride 30 MG Tablet PO (08:10)
[2023-02-21 08:11] VITALS: BP 124/64; PULSE 89
[2023-02-21] MEDS: metFORMIN HCl 1,000 MG Tablet 1000 MG PO ×2 (08:11→17:06)
[2023-02-21] MEDS: Metoprolol Tartrate 100 MG Tablet 150 MG PO ×2 (08:11→21:29)
[2023-02-21] MEDS: Glimepiride 2 MG Tablet PO (08:11)
[2023-02-21] MEDS: dilTIAZem CD 120 MG Capsule PO ×2 (08:11→21:30)
[2023-02-21] MEDS: Miconazole Nitrate 43 GM Bottle 1 APPLIC TOPICAL ×2 (08:12→21:30)
[2023-02-21] MEDS: Lisinopril 10 MG Tablet PO ×2 (08:12→21:30)
[2023-02-21] MEDS: Menthol/Lanolin/Calamine/Znox 113 GM Tube 1 APPLIC TOPICAL ×2 (08:12→21:30)
[2023-02-21] MEDS: APIXABAN 2.5 MG TABLET (WCH) PO ×2 (08:12→21:30)
[2023-02-21] MEDS: Juven (unflavored) Packet 1 PACKET PO ×2 (08:12→17:06)
--- NOTE | 2023-02-21 10:43 | WOUNDNOTE ---
Dressing intact to the LLE. Podiatry has been changing the dressing weekly. will monitor and assist as needed. Pt denies further needs at this time.
[2023-02-21 11:37] LABS: Bedside Glucose 163 mg/dL (74-106)
--- NOTE | 2023-02-21 12:55 | NURSING ---
Updated that a patient on the unit tested covid positive. Patient requested family not be called.
[2023-02-21 15:00] VITALS: BP 97/47; PULSE 91; RESP 18; TEMP 37.3
[2023-02-21 17:02] LABS: Bedside Glucose 132 mg/dL (74-106)
[2023-02-21 21:29] VITALS: BP 104/61; PULSE 94
[2023-02-21 22:27] LABS: Bedside Glucose 123 mg/dL (74-106)
[2023-02-22 06:15] VITALS: BP 116/49; PULSE 84
[2023-02-22] MEDS: Furosemide 40 MG Tablet PO (06:18)
[2023-02-22 06:49] LABS: Bedside Glucose 139 mg/dL (74-106)
[2023-02-22] MEDS: APIXABAN 2.5 MG TABLET (WCH) PO ×2 (08:26→20:30)
[2023-02-22] MEDS: Pioglitazone Hydrochloride 30 MG Tablet PO (08:26)
[2023-02-22] MEDS: Lisinopril 10 MG Tablet PO (08:26)
[2023-02-22] MEDS: dilTIAZem CD 120 MG Capsule PO (08:26)
[2023-02-22] MEDS: Glimepiride 2 MG Tablet PO (08:26)
[2023-02-22] MEDS: metFORMIN HCl 1,000 MG Tablet 1000 MG PO ×2 (08:26→17:11)
[2023-02-22] MEDS: Juven (unflavored) Packet 1 PACKET PO ×2 (08:27→17:11)
[2023-02-22] MEDS: Menthol/Lanolin/Calamine/Znox 113 GM Tube 1 APPLIC TOPICAL ×2 (08:32→20:29)
[2023-02-22] MEDS: Miconazole Nitrate 43 GM Bottle 1 APPLIC TOPICAL ×2 (08:33→20:29)
[2023-02-22 08:34] VITALS: BP 99/56; PULSE 83; RESP 16; TEMP 36.2; O2SAT 95
--- NOTE | 2023-02-22 08:37 | NURSING ---
held lopressor 150mg this AM d/t low BP 99/[address] sewell notified. pt states he can tell when its running low. states he gets lightheaded and groggy, that is how he knows its low.
[2023-02-22 11:21] LABS: Bedside Glucose 203 mg/dL (74-106)
[2023-02-22 13:21] VITALS: BMI 43.3
[2023-02-22 14:01] VITALS: BP 104/67; BP 98/41; PULSE 90; PULSE 92
[2023-02-22 16:51] LABS: Bedside Glucose 128 mg/dL (74-106)
[2023-02-22 20:52] VITALS: PULSE 95; RESP 18; O2SAT 97
[2023-02-22 21:44] LABS: Bedside Glucose 114 mg/dL (74-106)
[2023-02-23] MEDS: Furosemide 40 MG Tablet PO (06:01)
[2023-02-23 06:04] VITALS: BP 117/71; PULSE 94; RESP 16
[2023-02-23 07:08] LABS: Bedside Glucose 120 mg/dL (74-106)
[2023-02-23] MEDS: metFORMIN HCl 1,000 MG Tablet 1000 MG PO ×2 (09:44→17:26)
[2023-02-23] MEDS: Glimepiride 2 MG Tablet PO (09:44)
[2023-02-23] MEDS: APIXABAN 2.5 MG TABLET (WCH) PO ×2 (09:45→20:41)
[2023-02-23] MEDS: Pioglitazone Hydrochloride 30 MG Tablet PO (09:45)
[2023-02-23] MEDS: Juven (unflavored) Packet 1 PACKET PO ×2 (09:45→17:26)
[2023-02-23] MEDS: dilTIAZem CD 120 MG Capsule PO (09:45)
[2023-02-23 09:46] VITALS: BP 113/61; PULSE 101
[2023-02-23] MEDS: Metoprolol Tartrate 100 MG Tablet 150 MG PO ×2 (09:46→20:40)
[2023-02-23] MEDS: Miconazole Nitrate 43 GM Bottle 1 APPLIC TOPICAL ×2 (09:48→20:39)
[2023-02-23] MEDS: Menthol/Lanolin/Calamine/Znox 113 GM Tube 1 APPLIC TOPICAL ×2 (09:49→20:38)
[2023-02-23 11:46] LABS: Bedside Glucose 228 mg/dL (74-106)
[2023-02-23 12:13] VITALS: BP 111/62; PULSE 90; RESP 18; TEMP 36.9; O2SAT 98
--- NOTE | 2023-02-23 12:14 | CASEMGMT ---
Social Work Pt was approved by insurance with [employer] 02/28. Cassandra Flores, FIELD EVIDENCE TECHNICIAN MILK PICKUP DRIVER
--- NOTE | 2023-02-23 12:59 | PN_ITS ---
Subjective Subjective Patient seen resting in bed just after finishing lunch with left foot elevated. Splint and dressings are intact. He states he continues to work with therapy which is going well. Denies pain in calf and foot. Does admit to some phantom pains but states these are occasional. Denies constitutional symptoms. Denies further complaints. Objective Data Objective Data Vital Signs: Vital Signs Temp Pulse Resp BP Pulse Ox O2 Del Method O2 Flow Rate 98.4 F 90 18 111/62 98 Room Air 96 02/23/23 12:13 02/23/23 12:13 02/23/23 12:13 02/23/23 12:13 02/23/23 12:13 02/23/23 12:13 02/04/23 19:38 FiO2 21 02/23/23 00:38 Oxygen Flow Rate (L/min) 96 Oxygen Delivery Method Room Air Weight: 129.41 kg Body Mass Index (BMI) 43.3 Intake & Output: Intake and Output for Last 24 Hours 02/21/23 02/22/23 02/23/23 23:59 23:59 23:59 Intake Total 700 / 700 960 / 960 480 / 480 Balance 700 / 700 960 / 960 480 / 480 Lab / Micro Data 02/19/23 06:43 02/19/23 06:43 Labs: Laboratory Results - last 24 hr 02/22/23 16:32: POC Glucose 128 H 02/22/23 21:03: POC Glucose 114 H 02/23/23 06:35: POC Glucose 120 H 02/23/23 11:08: POC Glucose 228 H Micro: Microbiology 02/21/23 05:45 Nasal Secretion SARS-CoV-2 Antigen (Rapid) - Final Physical Exam Const alert, oriented x3, no apparent distress and well nourished General Appearance: cooperative Nutritional Appearance: morbidly obese HEENT normocephalic Eyes General Eye: normal appearance of both eyes Neck General: normal visual inspection Lymph Lymphatic: no lymphadenopathy noted and no lymphedema noted Resp normal respiratory effort Cardio regular rate and regular rhythm Extremity normal capillary refill, no calf tenderness and no pedal edema Extremity Narrative: Vascular: DP and PT pulses palpable bilateral. Capillary fill time to digits less than 5 seconds bilateral. Dermatological: Transmetatarsal amputation of left foot with intact sutures to the distal stump and intact sutures posterior overlying the Achilles tendon. No signs of infection. Erythema overlying the foot is decreasing. No purulent drainage noted. Skin flap appears healthy and pink in coloration with excellent viability. Musculoskeletal: Muscle strength 5 of 5 age-appropriate. There is decreased range of motion of the ankle joint dorsiflexion with the knee extended without pain or crepitus. There is a component of equinus noted bilateral. Transmetatarsal amputation left foot with intact sutures. Skin no rashes or lesions noted, skin turgor normal and no jaundice Neuro oriented x3 and moves all extremities Assessment & Plan Assessment/Plan (1) Osteomyelitis of great toe of left foot: (2) Abscess of left foot: (3) Cellulitis of left foot: (4) Equinus deformity of left foot: (5) Diabetic polyneuropathy: (6) Hypertension: (7) Morbid obesity: PLAN: Plan Patient seen and evaluated He is s/p tendo Achilles lengthening of the left foot, transmetatarsal amputation left foot, incision and drainage with wide debridement, sharp debridement to the level of bone, and tissue advancement flap of the left foot. DOS: 02/01/2023. POD #22. Transmetatarsal amputation noted to the left foot. Sutures intact at distal stump. Skin flap demonstrates healthy viability and is pink in color. There is a slight wound to the plantar medial area overlying previous area of abscess, wound is healing well. No purulent drainage noted. There is some serosanguineous drainage at this site. Erythema resolved. 1 g vancomycin powder was placed at the amputation site prior to closure. Edema well controlled at this time. Sutures removed today atraumatically. Incision sites painted with Betadine and dressed with dry sterile dressing. Surgical cultures: Tissue and abscess demonstrates Proteus hauseri, Streptococcus gallolyticus pas. Bone culture demonstrates Proteus hauseri, Streptococcus gallolyticus pas, Staphylococcus xylosus. LEAS performed 01/31/2023 demonstrating no evidence of arterial occlusive disease. Imaging: Radiograph 01/31/2023 demonstrates soft tissue swelling and subcutaneous soft tissue emphysema particularly over the distal phalanx of the great toe. MRI performed 04/02/2022 demonstrates decreased T1 signal of the distal phalanx and proximal phalanx of the hallux with corresponding increased T2 signal of the distal phalanx and proximal phalanx of the hallux consistent with osteomyelitis. There is evidence of soft tissue emphysema about the hallux and significant soft tissue swelling of the hallux and forefoot of the left foot. There is fluid collection within the musculature overlying the plantar first metatarsal. Postsurgical radiographs 02/01/2023 demonstrates transmetatarsal amputation of the left foot. Dressings: Betadine to incision sites, Adaptic to plantar medial wound, 4 x 4 gauze, Kerlix, 4 inch Tres wrap, 6 inch Tres wrap. Dressings changed 02/23/2023. Dressings to remain intact for next 48 hours afterwards patient/nursing may remove dressings to wash left lower extremity. May redress with Kassandra to the small plantar medial wound and dry sterile dressing. Discussed application of CAM boot to left lower extremity so that he may begin protected weightbearing. Discussed early range of motion exercises to be performed nonweightbearing. Discussed to not be too aggressive with his range of motion as the Achilles tendon is still healing. He voices understanding of this. Patient is newly diagnosed diabetic with A1c 11.4%. Discussed proper diabetic diet and foods to avoid. Discussed with him implementing diet modifications advised by waste transportation technician to aid in glycemic control. Encouraged active lifestyle modification not only to improve blood sugar/A1c but to aid in weight loss as patient is morbidly obese. Discussed checking feet daily given history of wounds and diabetes. Patient is to remain nonweightbearing to the left lower extremity/foot with assistance of walker or wheelchair for next 48 hours. As of Tuesday he may transition to protected weightbearing in CAM boot with assistance of walker. He is to continue elevating left foot at all times rest for postoperative edema control. Dr. Mcdonald following for medical management, his assistance in care is appreciated. Wound nurse continuing to follow for assistance in dressing changes, she is appreciated. Infectious disease following for antibiotic management. Patient on 1 week of oral Augmentin following surgery. Has completed oral antibiotic. Currently prognosis is good with healthy-appearing amputation stump. Patient does state he feels better each day. Discussed following the removal of sutures therapy may continue to work with range of motion in nonweightbearing setting. May continue to build strength lower extremity with light weight exercise/resistance band. Discussed with him to start slow as the Achilles tendon is still healing. He voices understanding of his plan to progress and care. Podiatry will continue to follow while in the transitional care unit. Upon discharge home from transitional care unit he will continue to follow for postoperative care in office with me. Jay Moore Jr. D.P.M. [facility] [phone]
--- NOTE | 2023-02-23 13:14 | WOUNDNOTE ---
wound photo: left foot
--- NOTE | 2023-02-23 13:15 | WOUNDNOTE ---
wound photo: left foot
--- NOTE | 2023-02-23 15:16 | NURSING ---
Updated patient that staff member tested positive for covid. He did not want family updated.
[2023-02-23 17:10] LABS: Bedside Glucose 139 mg/dL (74-106)
[2023-02-23 20:40] VITALS: BP 109/57; PULSE 80
[2023-02-23 20:48] VITALS: PULSE 80; RESP 16; O2SAT 98
[2023-02-23 21:38] LABS: Bedside Glucose 130 mg/dL (74-106)
[2023-02-24 06:18] VITALS: RESP 16; O2SAT 97
[2023-02-24 06:37] LABS: Bedside Glucose 127 mg/dL (74-106)
[2023-02-24 08:20] VITALS: BP 109/67; PULSE 81; RESP 18; TEMP 36.1; O2SAT 98
[2023-02-24 08:21] VITALS: PULSE 81
[2023-02-24] MEDS: Glimepiride 2 MG Tablet PO (08:21)
[2023-02-24] MEDS: Pioglitazone Hydrochloride 30 MG Tablet PO (08:21)
[2023-02-24] MEDS: dilTIAZem CD 120 MG Capsule PO (08:21)
[2023-02-24] MEDS: Metoprolol Tartrate 100 MG Tablet 150 MG PO ×2 (08:21→21:12)
[2023-02-24] MEDS: APIXABAN 2.5 MG TABLET (WCH) PO ×2 (08:21→21:12)
[2023-02-24] MEDS: Juven (unflavored) Packet 1 PACKET PO ×2 (08:22→17:10)
[2023-02-24] MEDS: Furosemide 40 MG Tablet PO (08:22)
[2023-02-24] MEDS: metFORMIN HCl 1,000 MG Tablet 1000 MG PO ×2 (08:22→17:11)
[2023-02-24] MEDS: Menthol/Lanolin/Calamine/Znox 113 GM Tube 1 APPLIC TOPICAL ×2 (08:25→21:11)
[2023-02-24] MEDS: Miconazole Nitrate 43 GM Bottle 1 APPLIC TOPICAL ×2 (08:25→21:11)
[2023-02-24 11:43] LABS: Bedside Glucose 123 mg/dL (74-106)
[2023-02-24 16:41] LABS: Bedside Glucose 104 mg/dL (74-106)
[2023-02-24 21:12] VITALS: BP 112/62; PULSE 89
[2023-02-25 06:47] LABS: Bedside Glucose 159 mg/dL (74-106)
[2023-02-25] MEDS: Pioglitazone Hydrochloride 30 MG Tablet PO (09:01)
[2023-02-25] MEDS: dilTIAZem CD 120 MG Capsule PO (09:01)
[2023-02-25] MEDS: metFORMIN HCl 1,000 MG Tablet 1000 MG PO ×2 (09:01→16:56)
[2023-02-25] MEDS: Juven (unflavored) Packet 1 PACKET PO ×2 (09:01→16:55)
[2023-02-25] MEDS: APIXABAN 2.5 MG TABLET (WCH) PO ×2 (09:02→21:26)
[2023-02-25] MEDS: Glimepiride 2 MG Tablet PO (09:02)
[2023-02-25] MEDS: Furosemide 40 MG Tablet PO (09:02)
[2023-02-25] MEDS: Menthol/Lanolin/Calamine/Znox 113 GM Tube 1 APPLIC TOPICAL ×2 (09:05→21:30)
[2023-02-25] MEDS: Miconazole Nitrate 43 GM Bottle 1 APPLIC TOPICAL ×2 (09:06→21:30)
[2023-02-25 09:17] VITALS: BP 114/72; PULSE 103
[2023-02-25] MEDS: Metoprolol Tartrate 100 MG Tablet 150 MG PO ×2 (09:17→21:26)
--- NOTE | 2023-02-25 11:04 | CASEMGMT ---
Addendum entered by Cassandra lFores 02/25/23 16:34: SW called the insurance reviewer and per the voicemail, it stated to contact [facility] for HHC and DME provider assistance. SUSAN spoke with Heber Avilez at [facility] and provided pt's information. Heber requested clinicals faxed to [facility] to begin provider search. Heber to contact this worker when/if a HHC provider is secured. Addendum entered by Cassandra Flores 02/25/23 15:56: SW referred to 15 other HHC agencies with no success - HHC is not INN with insurance. SW also contacted [facility] for assistance, but they are also OON. SW collaborated with Sew On Operator of and was referred to [facility]. There was a long wait time and forwarded to voicemail. SW phoned the member service number on pt's insurance card - also had to leave a message. SW sent glucometer referral to [facility] to process. SUSAN spoke with Michelle and instructed to contact nurse's station with outcome; insurance coverage and in stock supplies, etc. Original Note: Social Work Pt presented to this worker's office requesting to DC home. After discussion with pt's needs, therapy and insurance, pt agreeable to DC 02/28. Pt will have an appt with Dr. Mcdonald to start HHC orders. SW to provide script for glucometer and supplies and coordinate skilled HHC. SW requested [facility]. Pt stated his car is at the hospital and will drive himself home. IDT does not have any concerns with that. SW phoned referral [facility], however, they do not accept his insurance. SW began placing other referrals via [facility] since pt's insurance is unique. Will await outcomes. Plan: DC to mother's house 02/28, HHC PT/OT/SN, glucometer and supplies [facility]IL[facility] [place]
--- NOTE | 2023-02-25 11:56 | CASEMGMT ---
Social Work BIMS () and PHQ-2 () completed for MDS assessment. Cassandra Flores MSW [place]
--- NOTE | 2023-02-25 13:41 | DS.PCM_ITS ---
Providers Date of Admission: 02/04/23 Primary Care Physician: Dr. Jake Mcdonald MD Consultations 02/04/23 19:57 Consult: Onc/Wound/biomass power plant superintendent Routine Comment: Reason for Consult:: LT foot infection/amputation 02/04/23 20:09 Consult: Podiatry Routine Consulting Provider: Jay Moore Reason for Consult: Left transmetatarsal amputation. EMERGENT Consult: No MD Notified: Yes Date Notified: 02/04/23 Time Notified: 20:10 Method of Notification: Verbal Reason For Visit: LT FOOT INFECTION W/AMPUTATION OF TOE Diagnosis Discharge Diagnosis (1) Osteomyelitis of great toe of left foot: Status: Inactive Code(s): M86.9 - Osteomyelitis, unspecified (2) Abscess of left foot: Status: Resolved Code(s): L02.612 - Cutaneous abscess of left foot (3) Cellulitis of left foot: Status: Resolved Code(s): L03.116 - Cellulitis of left lower limb (4) Equinus deformity of left foot: Status: Acute Code(s): M21.6X2 - Other acquired deformities of left foot (5) Diabetic polyneuropathy: Status: Acute Code(s): E11.42 - Type 2 diabetes mellitus with diabetic polyneuropathy (6) Hypertension: Status: Chronic Code(s): I10 - Essential (primary) hypertension (7) Morbid obesity: Status: Chronic Code(s): E66.01 - Morbid (severe) obesity due to excess calories Plan 52 year old male with below past medical history hospitalized for sepsis, left great toe osteomyelitis, left foot cellulitis, new onset Diabetes Mellitus II, underwent left transmetatarsal amputation 02/01/[address] Moore, admitted to TCU with debility, here for rehabilitation, strengthening, prior to discharge home alone. * Debility - PT/OT. * Pain - Tylenol 1000mg q6 prn pain (1-5), Oxycodone 5mg q4 prn pain (6-10). * Bowel - senna/colace 2 tablets bid, Magnesium citrate 300ml po daily prn. * Adult immunization - Administer pneumonia vaccine, covid vaccine, flu vaccine as appropriate. * DVT prophylaxis - Eliquis 2.5mg bid thru 03/03/2023. * Left great toe osteomyelitis status post left transmetatarsal ampuation - Augmentin 875mg bid thru 02/11/2023, Andrews 1 packet bid, consult Dr. Moore. * CV prophylaxis - Aspirin 81mg daily. * Hypertension - Metoprolol 150mg bid, Diltiazem 120mg bid, Lisinopril 10mg bid. * Heart failure preserved ejection fraction - Metoprolol 150mg bid, Lasix 40mg bid. * Diabetes Mellitus II - Glargine 35 units bid, Humalog 22 units TIDAC. Medications at Discharge Home Medications metoprolol tartrate 100 mg tablet 150 mg (1.5 x 100 mg) PO BID BP #270 tabs 10/15/22 acetaminophen 500 mg tablet 1,000 mg (2 x 500 mg) PO Q6H PRN PRN Pain Score 1-5 #0 tabs 02/25/23 apixaban 5 mg tablet (Eliquis) 2.5 mg (1/2 x 5 mg) PO BID 3 days #3 tabs 02/25/23 arginine 7 gram-glutam 7 gram-CaHMB 1.5 lxso-csrwe-mt-min oral pwd pkt (Andrews (with collagen)) 1 packet PO BIDCM 30 days #60 ea 02/25/23 aspirin 81 mg chewable tablet 81 mg PO DAILYCM #0 tabs 02/25/23 diltiazem HCl 120 mg capsule,extended release 24 hr 120 mg PO DAILY #0 caps 02/25/23 furosemide 40 mg tablet 40 mg PO DAILY #0 tabs 02/25/23 glimepiride 2 mg tablet 2 mg PO BREAKFAST 30 days #30 tabs 02/25/23 metformin 1,000 mg tablet 1,000 mg PO BIDCM 30 days #60 tabs 02/25/23 pioglitazone 30 mg tablet 30 mg PO BREAKFAST 30 days #30 tabs 02/25/23 Hospital Course Operations - (Left transmetatarsal amputation.) Procedures None Summary of Care Provided Minutes Spent on Discharge: 35 Hospital Course: 52 year old male with below past medical history hospitalized for sepsis, left great toe osteomyelitis, left foot cellulitis, new onset Diabetes Mellitus II, underwent left transmetatarsal amputation 02/01/[address] Moore, admitted to TCU with debility, here for rehabilitation, strengthening, prior to discharge home alone. Discharge to mother's house 02/28/2023, [facility] PT/OT/SN, glucometer and supplies. Physical Exam Const alert, oriented x3, no apparent distress and well nourished General Appearance: cooperative Nutritional Appearance: morbidly obese HEENT normocephalic Eyes General Eye: normal appearance of both eyes Neck General: normal visual inspection Lymph Lymphatic: no lymphadenopathy noted and no lymphedema noted Resp normal respiratory effort Cardio regular rate and regular rhythm Extremity normal capillary refill, no calf tenderness and no pedal edema Extremity Narrative: Left transmetatarsal amputation. Skin no rashes or lesions noted, skin turgor normal and no jaundice Neuro oriented x3 and moves all extremities Weight / BMI Weight Weight: 129.41 kg Body Mass Index (BMI) 43.3 ABG / Lab / Microbiology Data 02/19/23 06:43 02/19/23 06:43 Laboratory: Laboratory Results - last 24 hr 02/24/23 16:01: POC Glucose 104 02/25/23 06:20: POC Glucose 159 H Microbiology: Microbiology 02/24/23 04:25 Nasal Secretion SARS-CoV-2 Antigen (Rapid) - Final 02/21/23 05:45 Nasal Secretion SARS-CoV-2 Antigen (Rapid) - Final D/C Instructions Discharge Diet: No restrictions Discharge Activity: Return to Normal Activity, May Shower and Use Walker Weight Bearing Status: No weight bearing (Left lower extremity.) Call your doctor if you observe: Fever of 101 or Higher, Inability to urinate, Inability to have a bowel movement, Shortness of breath, Dizziness, Fainting spells, Swelling in the ankles, Chest pain and Uncontrolled pain Additional Dressing/Incision Instructions: Discharge to mother's house 02/28/2023, [facility] PT/OT/SN, glucometer and supplies. Please Follow Up With: Jake Mcdonald Chi, MD When: MO. Meaningful Use Info Meaningful Use Diagnoses (Choose all that apply): None applicable Discharge Plan Admission Admit Date/Time: 02/04/23 19:00 Primary Reason for Your Visit: Debility. Attending Provider: Jake Mcdonald Chi Primary Care Provider: Jake Mcdonald Chi Consulting Providers: Jay Moore Instructions Additional Instructions / Restrictions: Discharge to mother's house 02/28/2023, [facility] PT/OT/SN, glucometer and supplies. Discharge Orders/Prescriptions Prescriptions: New acetaminophen 500 mg Tablet 1,000 mg PO Q6H PRN PRN (Reason: Pain Score 1-5) Qty: 0 0RF aspirin 81 mg Tablet,Chewable 81 mg PO DAILYCM Qty: 0 0RF Rx Instructions: Start 03/04/2023. Eliquis 5 mg Tablet 2.5 mg PO BID 3 Days Qty: 3 0RF Andrews (with collagen) 7-7-1.5 gram Powder In Packet 1 packet PO BIDCM 30 Days Qty: 60 0RF furosemide 40 mg Tablet 40 mg PO DAILY Qty: 0 0RF glimepiride 2 mg Tablet 2 mg PO BREAKFAST 30 Days Qty: 30 0RF metformin 1,000 mg Tablet 1,000 mg PO BIDCM 30 Days Qty: 60 0RF diltiazem HCl 120 mg Capsule,Extended Release 24hr 120 mg PO DAILY Qty: 0 0RF pioglitazone 30 mg Tablet 30 mg PO BREAKFAST 30 Days Qty: 30 0RF Continued metoprolol tartrate 100 mg tablet 150 mg PO BID Qty: 270 3RF Discontinued aspirin 81 MG tablet,chewable 81 mg PO DAILY@0800 Qty: 90 4RF Hold Instructions: Hold while taking low-dose Eliquis. Patient Comments: restart when eliquis done amoxicillin-pot clavulanate 875-125 mg tablet 1 tab PO BID Qty: 14 0RF acetaminophen 325 mg Tablet 650 mg PO Q6H PRN PRN (Reason: Pain 1-10 Or Fever >100.7) Qty: 0 0RF oxycodone 5 mg Tablet 2.5 - 5 mg PO Q4H PRN PRN (Reason: Pain Score 4-10) Qty: 0 0RF Rx Instructions: 2.5 mg for moderate pain and 5 mg for severe pain respectively. insulin lispro [Humalog KwikPen Insulin] 100 unit/mL Insulin Pen 22 unit subcut TIDAC Qty: 0 0RF Rx Instructions: Hold if glucose less than 130 mg/dl insulin lispro [Humalog KwikPen Insulin] 100 unit/mL Insulin Pen See Protocol subcut ACHS Qty: 0 0RF Protocol: 3. Sliding Scale Insulin Med Dosing Condition: 150-189 mg/dl = 1 unit Condition: 190-229 mg/dl = 2 units Condition: 230-269 mg/dl = 3 units Condition: 270-309 mg/dl = 4 units Condition: 310-349 mg/dl = 5 units Condition: 350-399 mg/dl = 6 units Condition: 400-449 mg/dl = 7 units Condition: Greater than 449 call physician Protocol Text: - Use for Total Daily Dose of Insulin 37-55 units - Obsese, infected, or steroid patients MEDIUM DOSING ALGORITHIM Andrews (with collagen) 7-7-1.5 gram Powder In Packet 1 packet PO BIDCM Qty: 0 0RF insulin glargine-yfgn 100 unit/mL (3 mL) Insulin Pen 35 unit subcut BID Qty: 0 0RF Rx Instructions: Hold if glucose less than 130 mg/dl Eliquis 2.5 mg tablet 2.5 mg PO BID Qty: 60 0RF Rx Instructions: For 30 days after surgery. diltiazem HCl [Cardizem CD] 120 mg capsule,extended release 24hr 120 mg PO BID Qty: 180 3RF furosemide 40 mg tablet 40 mg PO BID Qty: 180 3RF Patient Comments: WATER PILL lisinopril 10 mg tablet 10 mg PO BID Qty: 180 3RF Referrals / Follow Up: Jake Mcdonald Chi, MD [Primary Care Provider] - In 1 Day (New patient appointment day of discharge.) Care Physician,No Primary [Non-Staff] - (Dr. Mcdonald agreed to be PCP. Needs new pt appt day of DC, if possible - Cassandra) Disposition Disposition (needs filled in before D/C Order can be placed): Home Health Service
--- NOTE | 2023-02-25 14:47 | CHAPLAIN ---
Type of Pastoral Visit ___ Initial Visit _x__ Follow-up Visit ___ On-call Visit ___ General Patient Visit ___ Spiritual Assessment ___ Family Conference ___ Bereavement ___ Rapid Response ___ Code Blue ___ Other (describe below) Pastoral Care Referral From _x__ Patient ___ Family ___ Nurse ___ Physician ___ Web Software Engineer ___ Last Turner ___ Other (describe below) Sacrament/Intervention _x__ Active listening ___ Anointing ___ Gnosticism ___ Bereavement ___ Communion ___ Jennifer exploration ___ _x__ Life review _x_ Prayer ___ Reconciliation ___ Sacrament of Sick ___ Supportive presence ___ Wedding ___ Other (describe below) Pastoral Comments patient gives updates on his recovery, the preparation at his mother's home for his return, and a casual conversation about life and the condition of our culture today; pt welcomes the concern and time given; pt asks for a prayer for his continued healing and provision
[2023-02-25 15:25] VITALS: BP 120/77; PULSE 98; RESP 18; TEMP 36.3; O2SAT 98
[2023-02-25 16:57] LABS: Bedside Glucose 107 mg/dL (74-106)
[2023-02-25 21:26] VITALS: BP 109/53; PULSE 91
[2023-02-26 06:45] LABS: Bedside Glucose 144 mg/dL (74-106)
[2023-02-26 09:34] LABS: Absolute Lymphocyte Count 3.09 X10^3/uL (0.83-4.51); Absolute Neutrophil Count 4.9 X10^3/uL (2.0-7.7); Basophil# 0.07 X10^3/uL; Basophil% 0.8 % (0-1); Eosinophil# 0.24 X10^3/uL; Eosinophils% 2.6 % (0-5); Hematocrit 42.4 % (40-54); Hemoglobin 13.4 g/dL (13.0-16.5); Lymphocyte # 3.09 X10^3/ul (0.83-4.51); Lymphocyte % 33.6 % (19-41); Mean Corp Hgb Conc 31.6 g/dL (32-36); Mean Corpuscular Hgb 28.9 pg (27.0-32.0); Mean Corpuscular Volume 91.6 fL (80-94); Monocyte# 0.85 X10^3/uL; Monocyte% 9.2 % (0-10); NRBC Flagged by Analyzer 0.3 % (0-5); Neutrophil # 4.89 X10^3/uL (2.7-7.7); Platelet Count 315 K/mm3 (150-450); RBC Distribution Width CV 12.7 % (11.6-14.6); RBC Distribution Width SD 42.3 fl (35.1-43.9); Red Blood Count 4.63 M/mm3 (4.6-6.2); White Blood Count 9.2 K/mm3 (4.4-11.0)
[2023-02-26 10:06] LABS: Anion Gap 5 (5-15); BUN 18 mg/dL (7-18); BUN/Creat Ratio 31.7 RATIO (10-20); Calcium,Total 8.9 mg/dL (8.5-10.1); Chloride 106 mmol/L (98-107); Creatinine, Serum 0.57 mg/dL (0.70-1.30); EST Glomerular Filtration Rate 161 mL/min (>60); Est Glom Filt Rate - Afr Amer 195 mL/min (>60); Glucose 169 mg/dL (74-106); Potassium 3.9 mmol/L (3.5-5.1); Sodium Level 136 mmol/L (136-145)
[2023-02-26 10:14] VITALS: BP 113/56; PULSE 94
[2023-02-26] MEDS: Metoprolol Tartrate 100 MG Tablet 150 MG PO ×2 (10:14→21:44)
[2023-02-26] MEDS: Juven (unflavored) Packet 1 PACKET PO ×2 (10:14→17:51)
[2023-02-26] MEDS: Pioglitazone Hydrochloride 30 MG Tablet PO (10:14)
[2023-02-26] MEDS: dilTIAZem CD 120 MG Capsule PO (10:14)
[2023-02-26] MEDS: Miconazole Nitrate 43 GM Bottle 1 APPLIC TOPICAL ×2 (10:14→21:38)
[2023-02-26] MEDS: APIXABAN 2.5 MG TABLET (WCH) PO ×2 (10:14→21:44)
[2023-02-26] MEDS: Furosemide 40 MG Tablet PO (10:19)
[2023-02-26] MEDS: metFORMIN HCl 1,000 MG Tablet 1000 MG PO ×2 (10:19→17:51)
[2023-02-26] MEDS: Glimepiride 2 MG Tablet PO (10:19)
[2023-02-26] MEDS: Menthol/Lanolin/Calamine/Znox 113 GM Tube 1 APPLIC TOPICAL ×2 (10:20→21:38)
[2023-02-26 14:32] VITALS: BP 106/61; PULSE 87; RESP 16; TEMP 35.6; O2SAT 99
[2023-02-26 16:39] LABS: Bedside Glucose 119 mg/dL (74-106)
[2023-02-26 21:44] VITALS: BP 105/64; PULSE 92
[2023-02-27 06:46] LABS: Bedside Glucose 129 mg/dL (74-106)
[2023-02-27] MEDS: Glimepiride 2 MG Tablet PO (08:07)
[2023-02-27] MEDS: metFORMIN HCl 1,000 MG Tablet 1000 MG PO ×2 (08:07→17:06)
[2023-02-27] MEDS: Pioglitazone Hydrochloride 30 MG Tablet PO (08:07)
[2023-02-27] MEDS: dilTIAZem CD 120 MG Capsule PO (08:08)
[2023-02-27] MEDS: Menthol/Lanolin/Calamine/Znox 113 GM Tube 1 APPLIC TOPICAL ×2 (08:08→21:15)
[2023-02-27] MEDS: Juven (unflavored) Packet 1 PACKET PO ×2 (08:08→17:06)
[2023-02-27] MEDS: Furosemide 40 MG Tablet PO (08:09)
[2023-02-27] MEDS: APIXABAN 2.5 MG TABLET (WCH) PO ×2 (08:09→21:15)
[2023-02-27] MEDS: Miconazole Nitrate 43 GM Bottle 1 APPLIC TOPICAL ×2 (08:09→21:15)
[2023-02-27 09:01] VITALS: BP 138/77; PULSE 108
[2023-02-27] MEDS: Metoprolol Tartrate 100 MG Tablet 150 MG PO ×2 (09:01→21:15)
[2023-02-27 14:30] VITALS: BP 116/72; PULSE 86; RESP 16; TEMP 35.7; O2SAT 96
[2023-02-27 16:47] LABS: Bedside Glucose 122 mg/dL (74-106)
[2023-02-27 21:15] VITALS: BP 101/55; PULSE 82
[2023-02-27 21:20] VITALS: PULSE 82; RESP 14; O2SAT 94
[2023-02-28 06:29] LABS: Bedside Glucose 134 mg/dL (74-106)
[2023-02-28] MEDS: Pioglitazone Hydrochloride 30 MG Tablet PO (08:00)
[2023-02-28] MEDS: metFORMIN HCl 1,000 MG Tablet 1000 MG PO (08:00)
[2023-02-28] MEDS: Glimepiride 2 MG Tablet PO (08:01)
[2023-02-28] MEDS: Juven (unflavored) Packet 1 PACKET PO (08:02)
[2023-02-28] MEDS: dilTIAZem CD 120 MG Capsule PO (10:12)
[2023-02-28] MEDS: Menthol/Lanolin/Calamine/Znox 113 GM Tube 1 APPLIC TOPICAL (10:12)
[2023-02-28] MEDS: APIXABAN 2.5 MG TABLET (WCH) PO (10:12)
[2023-02-28 10:13] VITALS: PULSE 72
[2023-02-28] MEDS: Metoprolol Tartrate 100 MG Tablet 150 MG PO (10:13)
[2023-02-28] MEDS: Miconazole Nitrate 43 GM Bottle 1 APPLIC TOPICAL (10:13)
[2023-02-28] MEDS: Furosemide 40 MG Tablet PO (10:13)
[2023-02-28 13:00] VITALS: BP 123/67; PULSE 84; RESP 15; TEMP 36.7; O2SAT 98
--- NOTE | 2023-02-28 14:01 | CASEMGMT ---
Social Work Received call from Heber at [facility] and she secured [facility] company to provide PT/OT/SN and wound care supplies. SW spoke with pt to update as he was discharging. Cassandra Flores MSW UTILITY ENGINEER
== END 2023-02-28 14:00 | disposition home health service (06) | DRG 560 ==
PROVIDERS: Admitting Provider Family Medicine Geriatric Medicine; PCP Family Medicine Geriatric Medicine; Visit Provider Family Medicine Geriatric Medicine
DX: Z47.81 Encounter for orthopedic aftercare following surgical amputation (principal); I50.32 Chronic diastolic (congestive) heart failure; I42.8 Other cardiomyopathies; M86.8X7 Other osteomyelitis, ankle and foot; L03.116 Cellulitis of left lower limb; L02.612 Cutaneous abscess of left foot; I11.0 Hypertensive heart disease with heart failure; E11.42 Type 2 diabetes mellitus with diabetic polyneuropathy; E66.01 Morbid (severe) obesity due to excess calories; E11.69 Type 2 diabetes mellitus with other specified complication; Z79.4 Long term (current) use of insulin; Z89.412 Acquired absence of left great toe; G47.33 Obstructive sleep apnea (adult) (pediatric); M21.6X2 Other acquired deformities of left foot; B35.4 Tinea corporis; Z79.01 Long term (current) use of anticoagulants; Z79.82 Long term (current) use of aspirin; Z87.891 Personal history of nicotine dependence
CPT/HCPCS: 36415; 80048; 82962; 85025; 87811; 94003; 94660; 97110; 97116; 97161; 97165; 97530; 97535; 97802; A4216

== ENCOUNTER → 2023-02-28 | Outpatient (CLI) | payer OTHER, SELFPAY ==
[2023-02-28 17:36] LABS: Absolute Lymphocyte Count 3.95 X10^3/uL (0.83-4.51); Absolute Neutrophil Count 6.4 X10^3/uL (2.0-7.7); Basophil% 0.8 % (0-1); Eosinophils% 2.5 % (0-5); Hematocrit 44.7 % (40-54); Lymphocyte # 3.95 X10^3/ul (0.83-4.51); Lymphocyte % 32.8 % (19-41); Mean Corp Hgb Conc 31.3 g/dL (32-36); Mean Corpuscular Hgb 28.6 pg (27.0-32.0); Mean Corpuscular Volume 91.2 fL (80-94); Mean Platelet Vol. 9.1 fl (6.2-12.0); Monocyte# 1.19 X10^3/uL; Monocyte% 9.9 % (0-10); NRBC Flagged by Analyzer 0 % (0-5); Neutrophil % 53.1 % (47-70); Platelet Count 384 K/mm3 (150-450); RBC Distribution Width CV 12.7 % (11.6-14.6); RBC Distribution Width SD 41.9 fl (35.1-43.9); White Blood Count 12.1 K/mm3 (4.4-11.0)
[2023-02-28 17:55] LABS: ALB/GLOB Ratio 0.7 RATIO (0.9-2.4); AST(SGOT) 10 U/L (15-37); Alanine Aminotransfer ALT/SGPT 22 U/L (16-61); Albumin, Serum 3.2 g/dL (3.2-5.0); Alkaline Phosphatase 90 U/L (45-117); Anion Gap 7 (5-15); BUN 18 mg/dL (7-18); BUN/Creat Ratio 28.3 RATIO (10-20); Calcium,Total 9.2 mg/dL (8.5-10.1); Chloride 105 mmol/L (98-107); Creatinine, Serum 0.64 mg/dL (0.70-1.30); EST Glomerular Filtration Rate 141 mL/min (>60); Est Glom Filt Rate - Afr Amer 171 mL/min (>60); Globulin 4.6 g/dL (2.2-4.2); Glucose 112 mg/dL (74-106); Potassium 3.9 mmol/L (3.5-5.1); Protein, Total 7.8 g/dL (6.4-8.2); Sodium Level 138 mmol/L (136-145); Thyroid Stim Hormone (TSH) 0.97 uIU/mL (0.358-3.74)
[2023-02-28 18:26] LABS: Hepatitis C Antibody Non-Reactive (Nonreactive)
== END | disposition home or self-care (01) ==
LOC: POLAB3 15:51
PROVIDERS: PCP Family Medicine Geriatric Medicine; Visit Provider Family Medicine Geriatric Medicine
DX: E11.65 Type 2 diabetes mellitus with hyperglycemia (principal); I10 Essential (primary) hypertension
CPT/HCPCS: 36415; 80053; 84443; 85025; 86803

== ENCOUNTER 2023-03-25 13:40 | Emergency (ER) | payer OTHER, SELFPAY ==
[2023-03-25 13:41] VITALS: BP 188/103; PULSE 104; RESP 18; TEMP 35.1; O2SAT 100
--- NOTE | 2023-03-25 14:55 | RAD_ITS ---
INDICATION: infection EXAMINATION/TECHNIQUE: X-RAY - LEFT XR Foot 2 Views 2 VIEWS COMPARISON: February 01, 2023 FINDINGS: SOFT TISSUES: There is diffuse soft tissue swelling of the midfoot. No radiopaque foreign body. BONES/JOINTS: There is evidence of prior amputation of the 4 and mid foot level of the proximal metatarsals. There is mild bony irregularity within the distal remaining first and fifth metatarsals. No sclerotic or destructive changes observed. RAD/Foot 2 Views IMPRESSION: Bony irregularity within the distal remaining first and fifth metatarsals, cannot exclude osteomyelitis. Diffuse soft tissue swelling. Electronically Signed: Zoraida Hill MD at 15:15 EST ,
--- OUTSIDE RECORDS SUMMARY | 2023-03-25 15:06 | XMS RPT_ITS | CCD ---
Author Name Unknown Address [address] [place] [address] Organization [facility] Care Team Providers Care Cross Tie Maker Name Role Phone PHYSICIAN, NONE Attending Unavailable PHYSICIAN, NONE Primary Care Unavailable Encounters Encounter Date Encounter Type Care Provider Facility Start: 03-03-2023 ambulatory NONE PHYSICIAN Facility :R Payers Date Payer Category Payer Self-pay 1970 Unknown [id number] Summary Purpose Family History No Family History Records Found Advance Directives No Advanced Directives Records Found Additional Source Comments (unrecognized sect ion and content) No Status Records Found INFORMATION SOURCE (unrecogn ized section and content) FOR RECORDS PERTAINING TO PATIENTS WHO ARE OR HAVE BEEN ENROLLED IN A CHEMICAL DEPENDENCY/SUBSTANCEABUSE PROGRAM, SOME INFORMATION MAY BE OMITTED. This clinical summary was aggregated from multiple sources. Caution should be exercised in using it in the provision of clinical care. This summary normalizes information from multiple sources, and as a consequence, information in this document may materially change the coding, format and clinical context of patient data. In addition, data may be omitted in some cases. CLINICAL DECISIONS SHOULD BE BASED ON THE PRIMARY CLINICAL RECORDS. [facility]. provides no warranty or guarantee of the accuracy or completeness of information in this document.
[2023-03-25 15:07] LABS: Absolute Lymphocyte Count 2.55 X10^3/uL (0.83-4.51); Absolute Neutrophil Count 7.5 X10^3/uL (2.0-7.7); Basophil# 0.08 X10^3/uL; Basophil% 0.7 % (0-1); Eosinophil# 0.09 X10^3/uL; Eosinophils% 0.8 % (0-5); Hematocrit 45.8 % (40-54); Hemoglobin 15.2 g/dL (13.0-16.5); Lymphocyte # 2.55 X10^3/ul (0.83-4.51); Lymphocyte % 22.6 % (19-41); Mean Corp Hgb Conc 33.2 g/dL (32-36); Mean Corpuscular Hgb 29.5 pg (27.0-32.0); Mean Corpuscular Volume 88.8 fL (80-94); Mean Platelet Vol. 8.5 fl (6.2-12.0); Monocyte% 8.9 % (0-10); NRBC Flagged by Analyzer 0 % (0-5); Neutrophil # 7.46 X10^3/uL (2.7-7.7); Neutrophil % 66.3 % (47-70); Platelet Count 306 K/mm3 (150-450); RBC Distribution Width CV 12.8 % (11.6-14.6); RBC Distribution Width SD 41.6 fl (35.1-43.9); Red Blood Count 5.16 M/mm3 (4.6-6.2); White Blood Count 11.3 K/mm3 (4.4-11.0)
[2023-03-25 15:15] VITALS: BP 125/72
[2023-03-25 15:16] LABS: Anion Gap 6 (5-15); BUN 15 mg/dL (7-18); BUN/Creat Ratio 22.4 RATIO (10-20); Calcium,Total 9.6 mg/dL (8.5-10.1); Chloride 107 mmol/L (98-107); Creatinine, Serum 0.67 mg/dL (0.70-1.30); EST Glomerular Filtration Rate 133 mL/min (>60); Est Glom Filt Rate - Afr Amer 161 mL/min (>60); Glucose 108 mg/dL (74-106); Potassium 3.8 mmol/L (3.5-5.1); Sodium Level 138 mmol/L (136-145)
--- NOTE | 2023-03-25 16:36 | EDS_ITS ---
HPI History of Present Illness Chief Complaint: Wound Check Informant: patient Narrative Narrative: 52-year-old male diabetic presenting to the emergency room for wound check. Patient underwent a left foot mid amputation with Dr. Moore February 01. He spent about 1 month in the TCU and has since been home. He states he has a home health nurse that comes and helps his wound care. He states that today they became concerned about some yellow crusting of the wound edges. He has not followed up with Dr. Moore since leaving the TCU. He states he does not have an upcoming appointment. No reported fevers. Patient cannot tell me if his foot looks differently than it had been. The patient shows me a picture of his foot dated about 3 days ago. It shows some apparent erythema on the dorsum of the foot distally. [facility] Medical History Congestive heart failure Diabetes mellitus, type 2 Essential hypertension Hypoxia Morbid obesity Neuropathy Nonischemic cardiomyopathy Obstructive sleep apnea Osteomyelitis of great toe of left foot Pulmonary hypertension Right arm fracture Sinus tachycardia Varicose vein of leg Home Medications acetaminophen 500 mg tablet 1,000 mg (2 x 500 mg) PO Q6H PRN PRN Pain Score 1-5 #0 tabs 02/25/23 [Rx Last Taken Unknown] apixaban 5 mg tablet (Eliquis) 2.5 mg (1/2 x 5 mg) PO BID 3 days #3 tabs 02/25/23 [Rx Last Taken Unknown] arginine 7 gram-glutam 7 gram-CaHMB 1.5 hbyi-dgcni-ms-min oral pwd pkt (Andrews (with collagen)) 1 packet PO BIDCM 30 days #60 ea 02/25/23 [Rx Last Taken Unknown] aspirin 81 mg chewable tablet 81 mg PO DAILYCM #0 tabs 02/25/23 [Rx Last Taken Unknown] furosemide 40 mg tablet 40 mg PO DAILY #0 tabs 02/25/23 [Rx Last Taken Unknown] glimepiride 2 mg tablet 2 mg PO BREAKFAST 30 days #30 tabs 02/25/23 [Rx Last Taken Unknown] metformin 1,000 mg tablet 1,000 mg PO BIDCM 30 days #60 tabs 02/25/23 [Rx Last Taken Unknown] pioglitazone 30 mg tablet 30 mg PO BREAKFAST 30 days #30 tabs 02/25/23 [Rx Last Taken Unknown] diltiazem HCl 120 mg capsule,extended release 24 hr 120 mg PO DAILY #90 caps 03/18/23 [Rx Last Taken Unknown] metoprolol tartrate 100 mg tablet 150 mg (1.5 x 100 mg) PO BID BP #270 tabs 03/18/23 [Rx Last Taken Unknown] Allergy/AdvReac Type Severity Reaction Status Date / Time No Known Allergies Allergy Verified 03/25/23 13:41 Family History Father CAD (coronary artery disease) COPD (chronic obstructive pulmonary disease) Mother Cancer Heart disease Surgical History History of left heart catheterization (LHC) (~10/09/13) History of open reduction and internal fixation (ORIF) procedure History of umbilical hernia repair S/P foot surgery, left Social History household members: none Smoking Status: Former smoker how long ago did patient quit smokin years ago alcohol intake: current alcohol intake frequency: holidays/special occasions only substance use type: does not use caffeine: No ROS ROS ED Constitutional Constitutional ED: Denies chills or weight loss Eyes Eyes: Denies change in vision or diplopia ENT ENT ED: Denies ear pain, rhinorrhea or sore throat Cardiovascular Cardiovascular: Denies chest pain, orthopnea, palpitations or racing heartbeat Respiratory/Chest Respiratory/Chest: Denies cough, dyspnea or orthopnea Gastrointestinal Gastrointestinal: Denies abdominal pain, diarrhea, nausea or vomiting Genitourinary Genitourinary ED: Denies dysuria, hematuria or urinary frequency Musculoskeletal Musculoskeletal: Reports other Details: See history of present illness ; Denies arthralgias or myalgias Integumentary Denies abscess or rash Neurologic Neurologic: Denies headache(s) or weakness Psychiatric Psychiatric: Denies anxiety, depression, suicidal ideation or suicidal thoughts Endocrine Endocrinology: Denies polydipsia, polyphagia or polyuria Allergic/Immunologic Allergic/Immunologic ED: Denies mouth swelling, tongue swelling or urticaria EXAM Physical Exam Const Vital Signs: 03/25/23 13:41 03/25/23 15:15 Temperature 95.2 F L Temperature Source Temporal Pulse Rate 104 H Respiratory Rate 18 Blood Pressure 188/103 H 125/72 H Blood Pressure Mean 131 89 Pulse Ox 100 Oxygen Delivery Method Room Air Positive well nourished and well developed General Appearance ED: well developed HEENT Reports normocephalic, head/scalp atraumatic and moist mucous membranes Eyes PERRL and EOMs intact bilaterally Neck no lymphadenopathy, supple and no JVD Resp normal respiratory effort and clear to auscultation bilaterally Cardio regular rate, regular rhythm and no murmurs GI normal to inspection, nondistended, normoactive bowel sounds and non-tender Palpation: soft Back/Spine no CVA tenderness and normal ROM Extremity Extremity Narrative: There is a healing amputation of the left midfoot. There is black eschar along the surgical edge. I do not appreciate any increased warmth. No erythema. Laterally along the incision there appears to be some part of the eschar that has fallen off. This tissue that is underneath appears white. I do not appreciate any moisture to it. No no lymphangitic streaking. General Extremety ED: Negative for edema General Extremity: Negative for edema Neuro oriented x3 and CN's II-XII intact bilaterally Sensorium / Orientation: alert Motor Exam: strength 5/5 throughout Psych mental status grossly normal Mood & Affect: Negative for depressed or tearful Skin no rashes or lesions noted and no wounds MDM MDM MDM Narrative Medical decision making narrative: White count is 11. Glucose 108. He is remained afebrile. My independent trepidation of the two-view foot x-ray is no obvious gas in the soft tissue. I reviewed the x-rays and the case with his surgeon. I do not feel strongly that this is representing acute osteomyelitis. I do not see any significant erythema. There is no foul smell. No significant drainage. I am hesitant to give antibiotics because he just finished and was in a care facility. I worry about the complications of antibiotics if they are not needed. Patient is comfortable following up in the office return if worsening or concerns History & Record Review Discussion w/independent historian: Patient Additional record(s) reviewed:: Prior inpatient record, Prior outpatient record, Prior ED visit and Prior labs Lab Data Attestation: I reviewed the patient's lab results. Labs: Laboratory Results - last 24 hr 03/25/23 14:55 WBC 11.3 H RBC 5.16 Hgb 15.2 Hct 45.8 MCV 88.8 MCH 29.5 MCHC 33.2 RDW Std Deviation 41.6 RDW Coeff of Mechelle 12.8 Plt Count 306 MPV 8.5 Immature Gran % (Auto) 0.700 Neut % (Auto) 66.3 Lymph % (Auto) 22.6 [place] % (Auto) 8.9 Eos % (Auto) 0.8 Baso % (Auto) 0.7 Absolute Neuts (auto) 7.5 Absolute Lymphs (auto) 2.55 Nucleated RBC % 0 Sodium 138 Potassium 3.8 Chloride 107 Carbon Dioxide 25.0 Anion Gap 6 BUN 15 Creatinine 0.67 L Est GFR (MDRD) Af Amer 161 Est GFR (MDRD) Non-Af 133 BUN/Creatinine Ratio 22.4 H Glucose 108 H Calcium 9.6 Radiography Diagnostic Testing: Clinical Impression(s) from Imaging Studies Foot X-Ray 03/25/23 14:55 IMPRESSION: Bony irregularity within the distal remaining first and fifth metatarsals, cannot exclude osteomyelitis. Diffuse soft tissue swelling. Electronically Signed: Zoraida Hill MD at 15:15 EST , Discharge Plan Triage Chief Complaint: Wound Check ED Provider: Bob Greco Dx/Rx/DC Orders Clinical Impression: Encounter for post surgical wound check, Diabetic polyneuropathy, Diabetes mellitus, type 2 Instructions: ED Post Op Wound Check, General Prescriptions: No Action acetaminophen 500 mg Tablet 1,000 mg PO Q6H PRN PRN (Reason: Pain Score 1-5) Qty: 0 0RF aspirin 81 mg Tablet,Chewable 81 mg PO DAILYCM Qty: 0 0RF Rx Instructions: Start 03/04/2023. Eliquis 5 mg Tablet 2.5 mg PO BID 3 Days Qty: 3 0RF Andrews (with collagen) 7-7-1.5 gram Powder In Packet 1 packet PO BIDCM 30 Days Qty: 60 0RF furosemide 40 mg Tablet 40 mg PO DAILY Qty: 0 0RF glimepiride 2 mg Tablet 2 mg PO BREAKFAST 30 Days Qty: 30 0RF metformin 1,000 mg Tablet 1,000 mg PO BIDCM 30 Days Qty: 60 0RF pioglitazone 30 mg Tablet 30 mg PO BREAKFAST 30 Days Qty: 30 0RF metoprolol tartrate 100 mg tablet 150 mg PO BID Qty: 270 3RF diltiazem HCl 120 mg capsule,extended release 24hr 120 mg PO DAILY Qty: 90 3RF Primary Care Provider: Jake Mcdonald Chi Referrals: Jay Moore DPM [Med Staff - Active Staff] - As soon as possible Jake Mcdonald Chi, MD [Primary Care Provider] - Disposition Disposition: Home, Self Care
== END 2023-03-25 16:37 | disposition home or self-care (01) ==
PROVIDERS: Emergency Provider Emergency Medicine; PCP Family Medicine Geriatric Medicine; Referring Provider Emergency Medicine; Visit Provider Emergency Medicine
DX: Z51.89 Encounter for other specified aftercare (principal); I42.8 Other cardiomyopathies; I11.0 Hypertensive heart disease with heart failure; I50.9 Heart failure, unspecified; E11.42 Type 2 diabetes mellitus with diabetic polyneuropathy; G47.33 Obstructive sleep apnea (adult) (pediatric); Z87.891 Personal history of nicotine dependence; Z79.84 Long term (current) use of oral hypoglycemic drugs; Z79.899 Other long term (current) drug therapy
CPT/HCPCS: 73620; 80048; 85025; 87040; 99282; A4216

== ENCOUNTER → 2023-05-17 | Outpatient (CLI) | payer OTHER, MEDICAID, SELFPAY ==
[2023-05-17 17:21] LABS: Absolute Lymphocyte Count 3.39 X10^3/uL (0.83-4.51); Absolute Neutrophil Count 6.4 X10^3/uL (2.0-7.7); Basophil# 0.07 X10^3/uL; Basophil% 0.6 % (0-1); Eosinophil# 0.12 X10^3/uL; Eosinophils% 1.1 % (0-5); Hemoglobin 15.8 g/dL (13.0-16.5); Lymphocyte # 3.39 X10^3/ul (0.83-4.51); Lymphocyte % 30.8 % (19-41); Mean Corp Hgb Conc 32.9 g/dL (32-36); Mean Corpuscular Hgb 29.4 pg (27.0-32.0); Mean Corpuscular Volume 89.4 fL (80-94); Mean Platelet Vol. 9.4 fl (6.2-12.0); Monocyte# 0.95 X10^3/uL; Monocyte% 8.6 % (0-10); NRBC Flagged by Analyzer 0 % (0-5); Neutrophil # 6.41 X10^3/uL (2.7-7.7); Neutrophil % 58.4 % (47-70); Platelet Count 331 K/mm3 (150-450); RBC Distribution Width SD 42.6 fl (35.1-43.9); Red Blood Count 5.37 M/mm3 (4.6-6.2)
[2023-05-17 17:39] LABS: Hemoglobin A1c 5.7 % (3.8-5.6)
[2023-05-17 17:47] LABS: ALB/GLOB Ratio 0.9 RATIO (0.9-2.4); AST(SGOT) 13 U/L (15-37); Alanine Aminotransfer ALT/SGPT 22 U/L (16-61); Albumin, Serum 3.6 g/dL (3.2-5.0); Alkaline Phosphatase 98 U/L (45-117); Anion Gap 7 (5-15); BUN 14 mg/dL (7-18); BUN/Creat Ratio 17.9 RATIO (10-20); Calcium,Total 9.5 mg/dL (8.5-10.1); Chloride 107 mmol/L (98-107); Cholesterol 122 mg/dL (200); Creatinine, Serum 0.78 mg/dL (0.70-1.30); EST Glomerular Filtration Rate 112 mL/min (>60); Est Glom Filt Rate - Afr Amer 135 mL/min (>60); Globulin 4.2 g/dL (2.2-4.2); Glucose 97 mg/dL (74-106); High Density Lipoprotein 30 mg/dL; Potassium 3.7 mmol/L (3.5-5.1); Protein, Total 7.8 g/dL (6.4-8.2); Sodium Level 139 mmol/L (136-145); Thyroid Stim Hormone (TSH) 0.59 uIU/mL (0.358-3.74); Triglycerides 146 mg/dL; Very Low Density Lipoprotein 29 mg/dL (5-40)
== END | disposition home or self-care (01) ==
PROVIDERS: PCP Family Medicine Geriatric Medicine; Visit Provider Family Medicine Geriatric Medicine
DX: I10 Essential (primary) hypertension (principal); E11.65 Type 2 diabetes mellitus with hyperglycemia; E78.5 Hyperlipidemia, unspecified
CPT/HCPCS: 36415; 80053; 80061; 83036; 84443; 85025

== ENCOUNTER → 2023-09-05 | Outpatient (CLI) | payer OTHER, MEDICAID, SELFPAY ==
[2023-09-05 15:57] LABS: Absolute Lymphocyte Count 2.95 X10^3/uL (0.83-4.51); Absolute Neutrophil Count 5.9 X10^3/uL (2.0-7.7); Basophil# 0.07 X10^3/uL; Basophil% 0.7 % (0-1); Eosinophil# 0.11 X10^3/uL; Eosinophils% 1.1 % (0-5); Hematocrit 48.5 % (40-54); Hemoglobin 15.2 g/dL (13.0-16.5); Lymphocyte # 2.95 X10^3/ul (0.83-4.51); Lymphocyte % 29.8 % (19-41); Mean Corp Hgb Conc 31.3 g/dL (32-36); Mean Corpuscular Hgb 28.7 pg (27.0-32.0); Mean Corpuscular Volume 91.7 fL (80-94); Mean Platelet Vol. 9.1 fl (6.2-12.0); Monocyte# 0.86 X10^3/uL; Monocyte% 8.7 % (0-10); NRBC Flagged by Analyzer 0 % (0-5); Neutrophil # 5.86 X10^3/uL (2.7-7.7); Neutrophil % 59.2 % (47-70); Platelet Count 305 K/mm3 (150-450); RBC Distribution Width CV 12.9 % (11.6-14.6); RBC Distribution Width SD 43.4 fl (35.1-43.9); Red Blood Count 5.29 M/mm3 (4.6-6.2); White Blood Count 9.9 K/mm3 (4.4-11.0)
[2023-09-05 16:37] LABS: ALB/GLOB Ratio 0.8 RATIO (0.9-2.4); AST(SGOT) 13 U/L (15-37); Alanine Aminotransfer ALT/SGPT 18 U/L (16-61); Albumin, Serum 3.5 g/dL (3.2-5.0); Alkaline Phosphatase 91 U/L (45-117); Anion Gap 5 (5-15); BUN 11 mg/dL (7-18); BUN/Creat Ratio 16.4 RATIO (10-20); Calcium,Total 9.1 mg/dL (8.5-10.1); Chloride 106 mmol/L (98-107); Cholesterol 165 mg/dL (200); Creatinine, Serum 0.67 mg/dL (0.70-1.30); EST Glomerular Filtration Rate 133 mL/min (>60); Est Glom Filt Rate - Afr Amer 161 mL/min (>60); Globulin 4.2 g/dL (2.2-4.2); Glucose 96 mg/dL (74-106); High Density Lipoprotein 31 mg/dL; Potassium 3.7 mmol/L (3.5-5.1); Protein, Total 7.7 g/dL (6.4-8.2); Sodium Level 137 mmol/L (136-145); Thyroid Stim Hormone (TSH) 0.76 uIU/mL (0.358-3.74); Triglycerides 146 mg/dL; Very Low Density Lipoprotein 29 mg/dL (5-40)
[2023-09-05 16:57] LABS: Hemoglobin A1c 5.1 % (3.8-5.6)
== END | disposition home or self-care (01) ==
LOC: LAB 14:47
PROVIDERS: PCP Family Medicine Geriatric Medicine; Visit Provider Family Medicine Geriatric Medicine
DX: I10 Essential (primary) hypertension (principal); E11.65 Type 2 diabetes mellitus with hyperglycemia; E78.5 Hyperlipidemia, unspecified
CPT/HCPCS: 36415; 80053; 80061; 83036; 84443; 85025

== ENCOUNTER → 2023-12-15 | Outpatient (CLI) | payer OTHER, SELFPAY ==
[2023-12-15 13:32] LABS: Absolute Lymphocyte Count 2.47 X10^3/uL (0.83-4.51); Absolute Neutrophil Count 5.5 X10^3/uL (2.0-7.7); Basophil# 0.06 X10^3/uL; Basophil% 0.7 % (0-1); Eosinophil# 0.11 X10^3/uL; Eosinophils% 1.2 % (0-5); Hematocrit 47.5 % (40-54); Hemoglobin 15.3 g/dL (13.0-16.5); Lymphocyte # 2.47 X10^3/ul (0.83-4.51); Lymphocyte % 27.5 % (19-41); Mean Corp Hgb Conc 32.2 g/dL (32-36); Mean Corpuscular Hgb 29.1 pg (27.0-32.0); Mean Corpuscular Volume 90.5 fL (80-94); Mean Platelet Vol. 9.1 fl (6.2-12.0); Monocyte# 0.78 X10^3/uL; Monocyte% 8.7 % (0-10); NRBC Flagged by Analyzer 0 % (0-5); Neutrophil # 5.49 X10^3/uL (2.7-7.7); Neutrophil % 61.1 % (47-70); Platelet Count 290 K/mm3 (150-450); RBC Distribution Width CV 12.9 % (11.6-14.6); RBC Distribution Width SD 42.7 fl (35.1-43.9); Red Blood Count 5.25 M/mm3 (4.6-6.2)
[2023-12-15 14:16] LABS: ALB/GLOB Ratio 0.8 RATIO (0.9-2.4); AST(SGOT) 12 U/L (15-37); Alanine Aminotransfer ALT/SGPT 23 U/L (16-61); Albumin, Serum 3.7 g/dL (3.2-5.0); Alkaline Phosphatase 106 U/L (45-117); Anion Gap 7 (5-15); BUN 15 mg/dL (7-18); BUN/Creat Ratio 19.8 RATIO (10-20); Calcium,Total 9.6 mg/dL (8.5-10.1); Chloride 103 mmol/L (98-107); Cholesterol 98 mg/dL (200); Creatinine, Serum 0.76 mg/dL (0.70-1.30); EST Glomerular Filtration Rate 115 mL/min (>60); Est Glom Filt Rate - Afr Amer 140 mL/min (>60); Globulin 4.5 g/dL (2.2-4.2); Glucose 143 mg/dL (74-106); High Density Lipoprotein 36 mg/dL; Potassium 3.6 mmol/L (3.5-5.1); Protein, Total 8.2 g/dL (6.4-8.2); Sodium Level 137 mmol/L (136-145); Thyroid Stim Hormone (TSH) 0.933 uIU/mL (0.358-3.740); Triglycerides 107 mg/dL; Very Low Density Lipoprotein 21 mg/dL (5-40)
[2023-12-15 15:18] LABS: Hemoglobin A1c 5.8 % (3.8-5.6)
== END | disposition home or self-care (01) ==
PROVIDERS: PCP Family Medicine Geriatric Medicine; Visit Provider Family Medicine Geriatric Medicine
DX: E11.65 Type 2 diabetes mellitus with hyperglycemia (principal); E78.5 Hyperlipidemia, unspecified; I10 Essential (primary) hypertension
CPT/HCPCS: 36415; 80053; 80061; 83036; 84443; 85025

== ENCOUNTER → 2024-03-05 | Outpatient (CLI) | payer OTHER, SELFPAY ==
[2024-03-05 15:07] LABS: Absolute Lymphocyte Count 2.92 X10^3/uL (0.83-4.51); Absolute Neutrophil Count 6.6 X10^3/uL (2.0-7.7); Basophil# 0.09 X10^3/uL; Basophil% 0.8 % (0-1); Eosinophil# 0.45 X10^3/uL; Eosinophils% 4.1 % (0-5); Hemoglobin 15.8 g/dL (13.0-16.5); Lymphocyte # 2.92 X10^3/ul (0.83-4.51); Lymphocyte % 26.3 % (19-41); Mean Corp Hgb Conc 32.2 g/dL (32-36); Mean Corpuscular Hgb 29.3 pg (27.0-32.0); Mean Corpuscular Volume 90.7 fL (80-94); Mean Platelet Vol. 9.2 fl (6.2-12.0); Monocyte# 0.93 X10^3/uL; Monocyte% 8.4 % (0-10); NRBC Flagged by Analyzer 0 % (0-5); Neutrophil # 6.64 X10^3/uL (2.7-7.7); Neutrophil % 59.8 % (47-70); Platelet Count 334 K/mm3 (150-450); RBC Distribution Width CV 12.5 % (11.6-14.6); RBC Distribution Width SD 41.4 fl (35.1-43.9); White Blood Count 11.1 K/mm3 (4.4-11.0)
[2024-03-05 16:14] LABS: ALB/GLOB Ratio 0.8 RATIO (0.9-2.4); AST(SGOT) 8 U/L (15-37); Alanine Aminotransfer ALT/SGPT 19 U/L (16-61); Albumin, Serum 3.8 g/dL (3.2-5.0); Alkaline Phosphatase 112 U/L (45-117); Anion Gap 9 (5-15); BUN 16 mg/dL (7-18); BUN/Creat Ratio 22.5 RATIO (10-20); Calcium,Total 9.5 mg/dL (8.5-10.1); Chloride 105 mmol/L (98-107); Cholesterol 107 mg/dL (200); Creatinine, Serum 0.71 mg/dL (0.70-1.30); EST Glomerular Filtration Rate 124 mL/min (>60); Est Glom Filt Rate - Afr Amer 150 mL/min (>60); Globulin 4.5 g/dL (2.2-4.2); Glucose 120 mg/dL (74-106); High Density Lipoprotein 36 mg/dL; Potassium 3.8 mmol/L (3.5-5.1); Protein, Total 8.3 g/dL (6.4-8.2); Sodium Level 137 mmol/L (136-145); Triglycerides 129 mg/dL; Very Low Density Lipoprotein 26 mg/dL (5-40)
== END | disposition home or self-care (01) ==
LOC: POLAB3 14:33
PROVIDERS: PCP Family Medicine Geriatric Medicine; Visit Provider Family Medicine Geriatric Medicine
DX: I10 Essential (primary) hypertension (principal); E11.65 Type 2 diabetes mellitus with hyperglycemia; E78.5 Hyperlipidemia, unspecified
CPT/HCPCS: 36415; 80053; 80061; 82043; 83036; 84443; 85025

== ENCOUNTER → 2024-11-29 | Outpatient (CLI) | payer BC, SELFPAY ==
[2024-11-29 13:42] LABS: Hematocrit 46.2 % (40-54); Hemoglobin 15.4 g/dL (13.0-16.5); Immature Granulocytes Count 0.100 X10^3/uL (0.0-0.0); Mean Corp Hgb Conc 33.3 g/dL (32-36); Mean Corpuscular Volume 90.2 fL (80-94); Mean Platelet Vol. 9.0 fl (6.2-12.0); NRBC Flagged by Analyzer 0 % (0-5); Platelet Count 298 K/mm3 (150-450); RBC Distribution Width CV 12.6 % (11.6-14.6); RBC Distribution Width SD 41.8 fl (35.1-43.9); Red Blood Count 5.12 M/mm3 (4.6-6.2); White Blood Count 11.5 K/mm3 (4.4-11.0)
[2024-11-29 14:34] LABS: AST(SGOT) 17 U/L (<=37); Alanine Aminotransfer ALT/SGPT 13 U/L (<=46); Albumin, Serum 4.3 g/dL (3.5-5.0); Alkaline Phosphatase 103 U/L (40-129); Anion Gap 13 (5-15); BUN 14 mg/dL (4-19); BUN/Creat Ratio 20.8 RATIO (10-20); Calcium,Total 9.5 mg/dL (7.6-11.0); Carbon Dioxide 23.1 mmol/L (21.0-32.0); Chloride 104 mmol/L (98-108); Globulin 3.4 g/dL (2.2-4.2); Glucose 111 mg/dL (70-99); Potassium 4.2 mmol/L (3.3-5.1)
== END | disposition home or self-care (01) ==
LOC: POLAB3 13:25
PROVIDERS: PCP Family Medicine Geriatric Medicine; Visit Provider Family Medicine Geriatric Medicine
DX: E11.65 Type 2 diabetes mellitus with hyperglycemia (principal); I10 Essential (primary) hypertension
CPT/HCPCS: 36415; 80053; 83036; 84443; 85025

== ENCOUNTER → 2025-03-06 | Outpatient (CLI) | payer BC, SELFPAY ==
[2025-03-06 14:01] LABS: Hematocrit 47.8 % (40-54); Hemoglobin 16.0 g/dL (13.0-16.5); Immature Granulocytes Count 0.070 X10^3/uL (0.0-0.0); Mean Corp Hgb Conc 33.5 g/dL (32-36); Mean Corpuscular Volume 89.3 fL (80-94); Mean Platelet Vol. 8.9 fl (6.2-12.0); NRBC Flagged by Analyzer 0 % (0-5); Platelet Count 332 K/mm3 (150-450); RBC Distribution Width CV 12.5 % (11.6-14.6); RBC Distribution Width SD 40.5 fl (35.1-43.9); Red Blood Count 5.35 M/mm3 (4.6-6.2); White Blood Count 11.4 K/mm3 (4.4-11.0)
[2025-03-06 14:36] LABS: AST(SGOT) 16 U/L (<=37); Alanine Aminotransfer ALT/SGPT 16 U/L (<=46); Albumin, Serum 4.6 g/dL (3.5-5.0); Alkaline Phosphatase 107 U/L (40-129); Anion Gap 13 (5-15); BUN 11 mg/dL (4-19); BUN/Creat Ratio 17.8 RATIO (10-20); Calcium,Total 9.5 mg/dL (7.6-11.0); Carbon Dioxide 25.3 mmol/L (21.0-32.0); Chloride 101 mmol/L (98-108); Globulin 3.6 g/dL (2.2-4.2); Glucose 113 mg/dL (70-99); Potassium 4.1 mmol/L (3.3-5.1)
[2025-03-06 21:34] LABS: Xtra Tube Kwok EXTRA TUBE
== END | disposition home or self-care (01) ==
LOC: POLAB3 13:31
PROVIDERS: PCP Family Medicine Geriatric Medicine; Visit Provider Family Medicine Geriatric Medicine
DX: I10 Essential (primary) hypertension (principal)
CPT/HCPCS: 36415; 80053; 84443; 85025